=== PATIENT | female | born 1935 | race Asian ===

== ENCOUNTER 2017-04-15 15:41 | Inpatient (IN) | payer MEDICARE, OTHER ==
[~2017-04-15] VITALS: Ht 162.6 cm; Wt 68.0 kg
[2017-04-15 15:41] VITALS: BP 132/71
[~2017-04-15 15:41] MED LIST: ALENDRONATE SOD70 MG ORAL; AMBIEN5 MG PO; ARICEPT10 MG ORAL; ARICEPT10 MG PO; ASPIR-LOW81 MG PO; ASPIRIN300 MG PO; ASPIRIN325 MG PO; ATORVASTATIN CA20 MG ORAL; BISACODYL5 MG PO; COLACE100 MG PO; COREG12.5 MG PO; DOXYCYCLINE HY100 M2 PO; DULCOLAX10 MG PR; FUROSEMIDE20 M1 PO; GABAPENTIN600 MG PO; IMDUR30 MG PO; ISOSORBIDE DINI20 M2 PO; KCL 20 MEQ20 MEQ/100 PO; KEFLEX500 MG ORAL; MIRALAX17 G2 ORAL; MIRTAZAPINE15 MG ORAL; MOM30 ML PO; MULTIVITAMINS1 EAC8 ORAL; NAMENDA10 MG PO; NEPHROVITE1 TAB ORAL; NEPHROVITE1 TAB PO; NITROGLYCERIN0.4 MG SL; NOVOLIN N100 UNIT/1 SUBQ; NOVOLOG100 UNIT/3 SUBQ; OMEPRAZOLE20 M2 ORAL; PLAVIX75 MG PO; POTASSIUM 25 M25 ME1 PO; PRAVACHOL80 MG PO; PRILOSEC OTC20 MG ORAL; PROTONIX40 MG PO; REGLAN5 MG ORAL; RENA-VITE RX T1 EAC1 PO; ROBITUSSIN DM T10 ML PO; TRAMADOL HCL50 MG ORAL; TRAMADOL HCL50 MG PO; TYLENOL500 MG PO; ZESTRIL5 MG PO; [UNRECOGNIZED DRUG - OTHER] PO
--- NOTE | 2017-04-15 15:57 | Emergency Room Report ---
History of Present Illness General Chief Complaint: General Complaint Source: Patient Present Illness HPI 81-year-old female, on aspirin, dementia, coming from shelter, vaginal bleeding for 2 days. Patient is awake alert oriented to person, however not giving clear history. shelter told EMS that she has been having vaginal bleeding for 2 days. Wetting about 10 pads. They held her aspirin, unknown time frame. Currently patient is following commands, not complaining of any pain. Allergies: Coded Allergies: No Known Allergies (Unverified , 04/19/12) Patient History Past Medical History: see triage record Past Surgical History: none Pertinent Family History: none Reviewed Nursing Documentation: PMH: Agreed, PSxH: Agreed Nursing Documentation-PMH Hx Cardiac Problems: Yes - Anemia, heart failure, [place], Hx Hypertension: Yes Hx Pacemaker: No Hx Asthma: No Hx COPD: Yes Hx Diabetes: Yes Hx Cancer: No Hx Gastrointestinal Problems: No Hx Dialysis: No - chronic kidney disease Hx Neurological Problems: Yes Hx Cerebrovascular Accident: No Hx Dementia: Yes Hx Alzheimer's Disease: Yes Hx Parkinson's Disease: No Hx Meningitis: No Hx Seizures: No Hx Epilepsy: No Hx Multiple Sclerosis: No Hx Cerebral Palsy: No Hx Amyotrophic Lat Sclerosis: No Hx Guillian-Hopewell Syndrome: No Hx Paralysis: No Hx Peripheral Neuropathy: No Hx Spinal Cord Injury: No Hx Head Trauma: No Hx Traumatic Brain Injury: No Hx Memory Loss: Yes Hx Concentration Difficulty: No Hx Tremors: No Hx Vertigo: No Hx Dizziness: Yes Hx Syncope: No Hx Headaches: Yes Hx Dysphasia: Yes Hx Numbness: Yes Hx Weakness: Yes Hx Fatigue: Yes Hx Neurologic Surgery: No Hx Brain Shunt: No Review of Systems All Other Systems: limited - dementia Physical Exam Vital Signs Date Time Temp Pulse Resp B/P (MAP) Pulse Ox O2 Delivery O2 Flow Rate FiO2 04/15/17 15:32 98.1 67 18 132/71 95 Room Air Sp02 EP Interpretation: reviewed, normal General Appearance: other - tired appearig elderly female, not in acute distress Head: normocephalic, atraumatic Eyes: bilateral eye normal inspection, bilateral eye PERRL, bilateral eye EOMI ENT: normal ENT inspection, normal pharynx, normal voice, moist mucus membranes Neck: normal inspection, full range of motion, supple Respiratory: normal inspection, lungs clear, normal breath sounds, no respiratory distress, no retraction, no wheezing, speaking full sentences, chest symmetrical Cardiovascular #1: normal inspection, regular rate, rhythm, normal capillary refill Cardiovascular #2: 2+ radial (R), 2+ radial (L) Gastrointestinal: other - nontender abdomen all quadrants, no guarding no rigidity, normal bS Genitourinary: other - +minimal blood in vaginal vault Musculoskeletal: normal inspection, back normal, normal range of motion, non- tender Neurologic: other - aox1, ff commands, moves all 4 ext Psychiatric: other - dementia Skin: normal inspection, normal color, no rash, warm/dry, well hydrated, normal turgor Medical Decision Making Diagnostic Impression: Primary Impression: Vaginal bleeding ER Course 81-year-old female, vaginal bleeding for 3 days DDX: via physical exam, appears to be vaginal bleeding, not rectal bleeding ? Endometrial CA Patient is hemodynamically stable Plan: Obtain labs, including type and screen, ua, EKG, CXR LAN/WAN ENGINEER consult ER course: Patient has been monitored during ED stay, HD stable Disposition: Patient is to be admitted to med surg D/W hospitalist Dr Gomes who has accepted patient for admission Please note that this Emergency Department Report was dictated using [employer]ified juvenile probation officer technology software, occasionally this can lead to erroneous entry secondary to interpretation by the dictation equipment. EKG Diagnostic Results EP Interpretation: Yes Rate: normal Rhythm: NSR ST Segments: TWI III and avF ASA given to patient: No Rhythm Strip EP Interpretation: Yes Rate: 87 Rhythm: NSR, no PVCs, no ectopy Laboratory Tests Test 04/15/17 16:05 04/15/17 17:30 White Blood Count 7.4 K/UL (4.8-10.8) Red Blood Count 4.22 M/UL (4.20-5.40) Hemoglobin 13.3 G/DL (12.0-16.0) Hematocrit 39.7 % (37.0-47.0) Mean Corpuscular Volume 94 FL (80-99) Mean Corpuscular Hemoglobin 31.5 PG (27.0-31.0) H Mean Corpuscular Hemoglobin Concent 33.5 G/DL (32.0-36.0) Red Cell Distribution Width 12.2 % (11.6-14.8) Platelet Count 171 K/UL (150-450) Mean Platelet Volume 7.7 FL (6.5-10.1) Neutrophils (%) (Auto) 66.8 % (45.0-75.0) Lymphocytes (%) (Auto) 18.7 % (20.0-45.0) L Monocytes (%) (Auto) 8.9 % (1.0-10.0) Eosinophils (%) (Auto) 4.5 % (0.0-3.0) H Basophils (%) (Auto) 1.2 % (0.0-2.0) Prothrombin Time 9.5 SEC (9.30-11.50) Prothrombin Time INR 0.9 (0.9-1.1) PTT 30 SEC (23-33) Sodium Level 141 MMOL/L (136-145) Potassium Level 4.4 MMOL/L (3.5-5.1) Chloride Level 109 MMOL/L (98-107) H Carbon Dioxide Level 24 MMOL/L (21-32) Anion Gap 8 mmol/L (5-15) Blood Urea Nitrogen 28 mg/dL (7-18) H Creatinine 1.3 MG/DL (0.55-1.30) Estimate Glomerular Filtration Rate mL/min (>60) Glucose Level 136 MG/DL (74-106) H Calcium Level 9.0 MG/DL (8.5-10.1) Total Bilirubin 0.3 MG/DL (0.2-1.0) Aspartate Amino Transferase (AST) 21 U/L (15-37) Alanine Aminotransferase (ALT) 33 U/L (12-78) Alkaline Phosphatase 74 U/L (46-116) Troponin I 0.030 ng/mL (0.000-0.056) Total Protein 6.8 G/DL (6.4-8.2) Albumin 3.1 G/DL (3.4-5.0) L Globulin 3.7 g/dL Albumin/Globulin Ratio 0.8 (1.0-2.7) L Lipase 230 U/L (73-393) Urine Color Pending Urine Appearance Pending Urine pH Pending Urine Specific [place] Pending Urine Protein Pending Urine Glucose (UA) Pending Urine Ketones Pending Urine Occult Blood Pending Urine Nitrite Pending Urine Bilirubin Pending Urine Urobilinogen Pending Urine Leukocyte Esterase Pending Last Vital Signs Date Time Temp Pulse Resp B/P (MAP) Pulse Ox O2 Delivery O2 Flow Rate FiO2 11/29/17 15:32 98.1 67 18 132/71 95 Room Air Huma Khalil M.D. Apr 15, 2017 15:57
[2017-04-15 16:25] LABS: BASOPHILS % (AUTO) 1.2 % (0.0-2.0); EOSINOPHILS % (AUTO) 4.5 % (0.0-3.0); LYMPHOCYTES % (AUTO) 18.7 % (20.0-45.0); MEAN CORPUSCULAR HEMOGLOBIN 31.5 PG (27.0-31.0); MEAN CORPUSCULAR HGB CONC 33.5 G/DL (32.0-36.0); MEAN CORPUSCULAR VOLUME 94 FL (80-99); MEAN PLATELET VOLUME 7.7 FL (6.5-10.1); MONOCYTES % (AUTO) 8.9 % (1.0-10.0); NEUTROPHILS % (AUTO) 66.8 % (45.0-75.0); PLATELET COUNT 171 K/UL (150-450); RED BLOOD COUNT 4.22 M/UL (4.20-5.40); RED CELL DISTRIBUTION WIDTH 12.2 % (11.6-14.8); WHITE BLOOD COUNT 7.4 K/UL (4.8-10.8)
[2017-04-15 16:38] LABS: ANION GAP 8 mmol/L (5-15); CARBON DIOXIDE 24 MMOL/L (21-32); CHLORIDE 109 MMOL/L (98-107); CREATININE 1.3 MG/DL (0.55-1.30); POTASSIUM 4.4 MMOL/L (3.5-5.1); SODIUM 141 MMOL/L (136-145)
[2017-04-15 16:42] LABS: ALANINE AMINOTRANSFERASE 33 U/L (12-78); ALBUMIN/GLOBULIN RATIO 0.8 (1.0-2.7); ASPARTATE AMINO TRANSFERASE 21 U/L (15-37); LIPASE 230 U/L (73-393); TOTAL PROTEIN 6.8 G/DL (6.4-8.2)
[2017-04-15 16:43] LABS: INR 0.9 (0.9-1.1); PROTHROMBIN TIME 9.5 SEC (9.30-11.50)
[2017-04-15 17:00] VITALS: BP 129/48
[2017-04-15 17:59] LABS: APPEARANCE,URINE CLEAR; KETONES,URINE NEGATIVE (NEGATIVE); LEUKOCYTE ESTERASE ,URINE 2+ (NEGATIVE); NITRITE,URINE POSITIVE (NEGATIVE); PH,URINE 5 (4.5-8.0); PROTEIN,URINE 1+ (NEGATIVE); UROBILINOGEN,URINE 1 MG/DL (0.0-1.0)
[2017-04-15] MEDS ORDERED: LORazepam Inj 2mg/ml 1ml IV PRN (18:00)
[2017-04-15] MEDS ORDERED: Miralax 17gm pkt ORAL PRN (18:00)
[2017-04-15] MEDS ORDERED: Zolpidem 5mg tab ORAL PRN (18:00)
[2017-04-15] MEDS ORDERED: Morphine Sulfate 2mg/ml Inj IVP PRN (18:00)
[2017-04-15] MEDS ORDERED: Mylanta II UD 30ml ORAL PRN (18:00)
[2017-04-15 18:12] LABS: BACTERIA,URINE MODERATE /HPF; SQUAMOUS EPITHELIAL CELL,UR FEW /LPF (NONE/OCC)
[2017-04-15 18:30] VITALS: BP 142/71
[2017-04-15 18:32] VITALS: BP 142/71
[2017-04-15 18:36] VITALS: BP 126/88
[2017-04-15] MEDS: Carvedilol 12.5mg tab ORAL SCH (18:54)
[2017-04-15] MEDS ORDERED: Promethazine/Codeine 5ml UD ORAL PRN (19:15)
[2017-04-15] MEDS ORDERED: Albuterol/Ipratropium 3ml neb HHN PRN (19:15)
[2017-04-15] MEDS ORDERED: Pneumococcal Vaccine 25mcg/0.5ml IM ONE (19:30)
[2017-04-15 19:57] VITALS: BP 133/62
[2017-04-15] MEDS: NovoLOG Insulin Flexpen SUBQ SCH (21:21)
[2017-04-16] VITALS: BP 129/65
[2017-04-16 04:00] VITALS: BP 111/53
[2017-04-16] MEDS: Carvedilol 12.5mg tab ORAL SCH ×2 (06:26→18:00)
[2017-04-16] MEDS: NovoLOG Insulin Flexpen SUBQ SCH ×4 (06:27→21:16)
[2017-04-16 07:07] LABS: BASOPHILS % (AUTO) 1.1 % (0.0-2.0); EOSINOPHILS % (AUTO) 5.5 % (0.0-3.0); LYMPHOCYTES % (AUTO) 31.6 % (20.0-45.0); MEAN CORPUSCULAR HEMOGLOBIN 31.5 PG (27.0-31.0); MEAN CORPUSCULAR HGB CONC 32.9 G/DL (32.0-36.0); MEAN CORPUSCULAR VOLUME 96 FL (80-99); MEAN PLATELET VOLUME 7.1 FL (6.5-10.1); MONOCYTES % (AUTO) 8.8 % (1.0-10.0); PLATELET COUNT 161 K/UL (150-450); RED BLOOD COUNT 4.12 M/UL (4.20-5.40); RED CELL DISTRIBUTION WIDTH 12.7 % (11.6-14.8); WHITE BLOOD COUNT 5.7 K/UL (4.8-10.8)
[2017-04-16 08:34] VITALS: BP 100/52
[2017-04-16] MEDS: Donepezil 10mg tab ORAL SCH (08:40)
[2017-04-16] MEDS: Lisinopril 2.5mg tab ORAL SCH (08:40)
[2017-04-16 09:04] LABS: ALANINE AMINOTRANSFERASE 24 U/L (12-78); ALBUMIN/GLOBULIN RATIO 0.8 (1.0-2.7); ANION GAP 6 mmol/L (5-15); ASPARTATE AMINO TRANSFERASE 18 U/L (15-37); CARBON DIOXIDE 28 MMOL/L (21-32); CHLORIDE 112 MMOL/L (98-107); CHOLESTEROL 166 MG/DL (< 200); CHOLESTEROL/HDL RATIO 2.5 (3.3-4.4); CREATININE 1.2 MG/DL (0.55-1.30); POTASSIUM 4.4 MMOL/L (3.5-5.1); SODIUM 146 MMOL/L (136-145); TOTAL PROTEIN 6.7 G/DL (6.4-8.2)
[2017-04-16 12:38] VITALS: BP 105/82
[2017-04-16] MEDS ORDERED: NS 500ML ONE (13:42)
[2017-04-16] MEDS: cefTRIAXone 1 GM in D5W 55 ML IVPB SCH (14:51)
--- NOTE | 2017-04-16 15:29 | History & Physical ---
History and Physical History & Physicial Dictated for Int Med-Dr Gomes no. [id number]. KIA LEÓN Apr 16, 2017 15:29
--- NOTE | 2017-04-16 16:17 | History and Physical ---
History of Present Illness General Date patient seen: Apr 16, 2017 Reason for Hospitalization: General Complaint Present Illness HPI 81-year-old female with PMHx of DM, dementia, CVA, HTN, CAD on aspirin and Plavix , from [facility], brought in for evaluation of vaginal bleeding for 2 days. Patient is awake alert oriented to person, however not giving clear history. She has been having vaginal bleeding for 2 days. Wetting about 10 pads. Pt is awake and comfortable but a poor historian. Allergies: Coded Allergies: No Known Allergies (Unverified , 04/19/12) Medication History Scheduled Alendronate Sodium* (Fosamax*), 70 MG ORAL ONCE A WEEK, (Reported) Aspirin* (Aspirin*), 325 MG PO DAILY, (Reported) Atorvastatin Calcium* (Atorvastatin Calcium*), 10 MG ORAL BEDTIME, (Reported) Bisacodyl* (Dulcolax*), 10 MG PO DAILY, (Reported) Carvedilol (Coreg), 12.5 MG PO Q12H, (Reported) Cephalexin* (Keflex*), 500 MG ORAL EVERY 6 HOURS Clopidogrel Bisulfate* (Plavix*), 75 MG PO DAILY, (Reported) Docusate Sodium* (Colace*), 100 MG PO BID, (Reported) Donepezil Hcl* (Aricept*), 10 MG ORAL DAILY, (Reported) Doxycycline Hyclate (Doxycycline Hyclate), 100 MG PO BID Furosemide* (Lasix*), 20 MG PO QOD, (Reported) Gabapentin* (Gabapentin*), 600 MG PO BID, (Reported) Isosorbide Mononitrate* (Imdur*), 30 MG PO DAILY, (Reported) Lisinopril* (Zestril*), 5 MG PO DAILY, (Reported) Memantine Hcl* (Namenda*), 10 MG PO BID, (Reported) Metoclopramide Hcl* (Reglan*), 5 MG ORAL EVERY 6 HOURS, (Reported) Mirtazapine* (Remeron*), 15 MG ORAL BEDTIME, (Reported) Multivitamin With Minerals (Multivitamins With Minerals*), 1 TAB ORAL DAILY, ( Reported) Nitroglycerin (Nitroglycerin), 0.4 MG SL PRN, (Reported) Omeprazole Magnesium (Prilosec Otc), 20 MG ORAL DAILY, (Reported) Polyethylene Glycol 3350* (Miralax*), 17 GM ORAL DAILY, (Reported) Potassium Bicarbonate/Cit Ac (Potassium 25 Meq Tablet Eff), 10 MEQ PO BID, ( Reported) Potassium Chloride/D5w (Kcl 20 Meq In D5w Solution), 20 MEQ PO QOD, (Reported) Pravastatin Sod (Pravachol), 80 MG PO HS, (Reported) Vitamin B Cmplx/Vit C/Folic AC (Nephro-Reyes Tablet), 1 TAB ORAL DAILY, (Reported ) Zolpidem Tartrate* (Ambien*), 5 MG PO HS, (Reported) Scheduled PRN Acetaminophen* (Tylenol*), 500 MG PO Q8H PRN, (Reported) Magnesium Hydroxide (Milk of Magnesia), 30 ML PO DAILY PRN, (Reported) Tramadol Hcl* (Ultram*), 50 MG ORAL Q6H PRN for For Pain, (Reported) Miscellaneous Medications Guaifenesin/Dextromethorphan (Robitussin Dm To Go Liquid), 10 ML PO, (Reported) Insulin Aspart* (Novolog*), 0 SUBQ, (Reported) Nph, Human Insulin Isophane* (Novolin N*), 0 SUBQ, (Reported) Vit B Cmplx 3/Fa/Vit C/Biotin (Zoe-Reyes Rx Tablet), 1 EACH PO, (Reported) Patient History Healthcare decision maker N Resuscitation status Full Code Advanced Directive on File Review of Systems Constitutional: Reports: malaise, weakness Physical Exam General Appearance: WD/WN, mild distress Lines, tubes and drains: central line HEENT: normocephalic, atraumatic Neck: non-tender, normal alignment Respiratory/Chest: chest wall non-tender, lungs clear, normal breath sounds Cardiovascular/Chest: normal peripheral pulses, normal rate Abdomen: normal bowel sounds, non tender Genitourinary/Rectal: normal genital exam, normal rectal exam Extremities: normal range of motion, non-tender, non-pitting Last 24 Hour Vital Signs Date Time Temp Pulse Resp B/P (MAP) Pulse Ox O2 Delivery O2 Flow Rate FiO2 04/16/17 12:38 98.0 65 20 105/82 98 04/16/17 08:40 100/52 04/16/17 08:34 97.8 63 20 100/52 98 Room Air 11/30/17 07:00 59 16 Room Air 21 04/16/17 06:26 56 111/53 04/16/17 04:00 98.5 56 16 111/53 100 Room Air 04/16/17 00:00 98.1 71 18 129/65 100 Room Air 04/15/17 19:57 98.4 66 20 133/62 98 Room Air 04/15/17 18:54 69 142/71 04/15/17 18:30 98.4 69 20 142/71 95 04/15/17 18:08 98.1 68 17 131/53 99 Room Air 04/15/17 17:00 63 15 129/48 98 Room Air Intake and Output 04/16/17 04/17/17 19:00 07:00 Intake Total 535 ml Balance 535 ml Intake Oral 480 ml IV Total 55 ml # Voids 2 # Bowel Movements 1 Laboratory Tests Test 04/15/17 17:30 04/16/17 04:55 Urine Color Yellow Urine Appearance Clear Urine pH 5 (4.5-8.0) Urine Specific [place] 1.020 (1.005-1.035) Urine Protein 1+ (NEGATIVE) H Urine Glucose (UA) Negative (NEGATIVE) Urine Ketones Negative (NEGATIVE) Urine Occult Blood 2+ (NEGATIVE) H Urine Nitrite Positive (NEGATIVE) H Urine Bilirubin Negative (NEGATIVE) Urine Urobilinogen 1 MG/DL (0.0-1.0) H Urine Leukocyte Esterase 2+ (NEGATIVE) H Urine RBC 10-15 /HPF (0 - 2) H Urine WBC 5-10 /HPF (0 - 2) H Urine Squamous Epithelial Cells Few /LPF (NONE/OCC) Urine Bacteria Moderate /HPF (NONE) H White Blood Count 5.7 K/UL (4.8-10.8) Red Blood Count 4.12 M/UL (4.20-5.40) L Hemoglobin 13.0 G/DL (12.0-16.0) Hematocrit 39.5 % (37.0-47.0) Mean Corpuscular Volume 96 FL (80-99) Mean Corpuscular Hemoglobin 31.5 PG (27.0-31.0) H Mean Corpuscular Hemoglobin Concent 32.9 G/DL (32.0-36.0) Red Cell Distribution Width 12.7 % (11.6-14.8) Platelet Count 161 K/UL (150-450) Mean Platelet Volume 7.1 FL (6.5-10.1) Neutrophils (%) (Auto) 53.0 % (45.0-75.0) Lymphocytes (%) (Auto) 31.6 % (20.0-45.0) Monocytes (%) (Auto) 8.8 % (1.0-10.0) Eosinophils (%) (Auto) 5.5 % (0.0-3.0) H Basophils (%) (Auto) 1.1 % (0.0-2.0) Sodium Level 146 MMOL/L (136-145) H Potassium Level 4.4 MMOL/L (3.5-5.1) Chloride Level 112 MMOL/L (98-107) H Carbon Dioxide Level 28 MMOL/L (21-32) Anion Gap 6 mmol/L (5-15) Blood Urea Nitrogen 24 mg/dL (7-18) H Creatinine 1.2 MG/DL (0.55-1.30) Estimat Glomerular Filtration Rate mL/min (>60) Glucose Level 87 MG/DL (74-106) Calcium Level 9.0 MG/DL (8.5-10.1) Total Bilirubin 0.4 MG/DL (0.2-1.0) Aspartate Amino Transf (AST/SGOT) 18 U/L (15-37) Alanine Aminotransferase (ALT/SGPT) 24 U/L (12-78) Alkaline Phosphatase 56 U/L (46-116) Total Protein 6.7 G/DL (6.4-8.2) Albumin 3.0 G/DL (3.4-5.0) L Globulin 3.7 g/dL Albumin/Globulin Ratio 0.8 (1.0-2.7) L Triglycerides Level 108 MG/DL (30-150) Cholesterol Level 166 MG/DL (< 200) LDL Cholesterol 82 mg/dL (<100) HDL Cholesterol 66 MG/DL (40-60) H Cholesterol/HDL Ratio 2.5 (3.3-4.4) L Microbiology Date/Time Source Procedure Growth Status 04/15/17 17:30 Urine,Clean Catch Urine Culture - Preliminary Resulted Height (Feet): 5 Height (Inches): 4.00 Weight (Pounds): 150 Medications Current Medications Medications (Trade) Dose Ordered Sig/Dat Route PRN Reason Start Time Stop Time Status Last Admin Dose Admin Acetaminophen (Tylenol) 650 mg Q4H PRN ORAL T>100.5 F 04/15/17 18:00 05/15/17 17:59 Al Hydroxide/Mg Hydroxide (Mylanta II) 30 ml Q6H PRN ORAL dyspepsia 04/15/17 18:00 05/15/17 17:59 Albuterol/ Ipratropium (Albuterol/ Ipratropium) 3 ml Q4H PRN HHN Shortness of Breath 04/15/17 19:15 04/20/17 19:14 Atorvastatin Calcium (Lipitor) 10 mg BEDTIME ORAL 04/15/17 21:00 05/15/17 20:59 04/15/17 21:19 Carvedilol (Coreg) 12.5 mg Q12HR@0600,1800 ORAL 04/15/17 18:00 05/15/17 17:59 04/16/17 06:26 Ceftriaxone Sodium 1 gm/ Dextrose 55 ml @ 110 mls/hr Q24H IVPB 04/16/17 15:00 04/23/17 14:59 04/16/17 14:51 Dextrose (Dextrose 50%) STAT PRN IV Hypoglycemia 04/15/17 18:00 05/15/17 17:59 Donepezil HCl (Aricept) 10 mg DAILY ORAL 04/16/17 09:00 05/16/17 08:59 04/16/17 08:40 Gabapentin (Neurontin) 600 mg BID ORAL 04/15/17 18:00 05/15/17 17:59 04/16/17 08:40 Insulin Aspart (NovoLOG) BEFORE MEALS AND HS SUBQ 04/15/17 21:00 05/15/17 20:59 04/16/17 11:38 Lisinopril (Zestril) 5 mg DAILY ORAL 04/16/17 09:00 05/16/17 08:59 Lorazepam (Ativan 2mg/ml 1ml) 0.5 mg Q4H PRN IV For Anxiety 04/15/17 18:00 04/22/17 17:59 Morphine Sulfate (Morphine Sulfate) 1 mg Q4H PRN IVP PAIN 4-10 04/15/17 18:00 04/22/17 17:59 Ondansetron HCl (Zofran) 4 mg Q6H PRN IVP Nausea & Vomiting 04/15/17 18:00 05/15/17 17:59 Polyethylene Glycol (Miralax) 17 gm HSPRN PRN ORAL Constipation 04/15/17 18:00 05/15/17 17:59 Promethazine HCl/ Codeine (Phenergan with Codeine) 5 ml Q6H PRN ORAL For Cough 04/15/17 19:15 05/15/17 19:14 Zolpidem Tartrate (Ambien) 5 mg HSPRN PRN ORAL Insomnia 04/15/17 18:00 04/22/17 17:59 Assessment/Plan Problem List: (1) Vaginal bleeding ICD Codes: N93.9 - Abnormal uterine and vaginal bleeding, unspecified SNOMED: 796949156, 847855046 (2) COPD (chronic obstructive pulmonary disease) ICD Codes: J44.9 - COPD (chronic obstructive pulmonary disease) SNOMED: 26943583 (3) Alzheimer's dementia ICD Codes: G30.9 - Alzheimer's disease, unspecified SNOMED: 43250985 (4) Diabetes ICD Codes: E11.9 - Diabetes SNOMED: 91025072 (5) Dementia ICD Codes: F03.90 - Dementia SNOMED: 73810328 Assessment/Plan hold all anticoagulant, anti PLT agents check H/H vaginal [employer] evaluation symptomatic treatment ILANA PIERCE Apr 16, 2017 16:17
[2017-04-16 16:24] VITALS: BP 110/54
[2017-04-16 20:00] VITALS: BP 114/51
--- NOTE | 2017-04-16 21:45 | History and Physical Report ---
DATE OF ADMISSION: 04/15/2017 CHIEF COMPLAINT: The patient is an 81-year-old female, who presents with a chief complaint of vaginal bleeding. HISTORY OF PRESENT ILLNESS: The patient herself is unable to contribute much to the history and physical. The patient has a history of Alzheimer's dementia. The patient is a resident of [facility]. According to the staff at [facility], the patient had a three-day history of vaginal bleeding. This has been quite heavy. The patient presented to [place] emergency room. The patient is admitted for postmenopausal menorrhagia. PAST MEDICAL HISTORY: Significant for: 1. Type 2 diabetes. 2. Hypertension. 3. Coronary artery disease. 4. History of congestive heart failure. 5. Alzheimer's dementia. 6. Osteoporosis. PAST SURGICAL HISTORY: Denies. CURRENT MEDICATIONS: 1. Fosamax 70 mg one tablet p.o. weekly. 2. Aspirin 325 mg one tablet p.o. daily. 3. Atorvastatin 20 mg one tablet p.o. at bedtime. 4. Coreg 12.5 mg p.o. twice daily. 5. Plavix 75 mg one tablet p.o. daily. 6. Aricept 10 mg one tablet p.o. daily. 7. Lasix 20 mg one tablet p.o. every other day. 8. Neurontin 600 mg one tablet p.o. twice daily. 9. NovoLog sliding scale. 10. Imdur 30 mg p.o. daily. 11. Lisinopril 5 mg one tablet p.o. daily. 12. Remeron 15 mg one tablet p.o. at bedtime. 13. Multivitamin one tablet p.o. daily. 14. NPH insulin of an unknown dose twice daily. 15. Omeprazole 20 mg p.o. daily. 16. Potassium chloride 20 mEq p.o. daily. 17. Pravastatin 80 mg p.o. daily. 18. Tramadol 50 mg p.o. q.6 hours p.r.n. 19. Vitamin B complex daily. 20. Ambien 5 mg one tablet p.o. at bedtime. ALLERGIES: No known drug allergies. SOCIAL HISTORY: The patient denies tobacco or alcohol use. REVIEW OF SYSTEMS: Unable to assess secondary to the patient's mental status. PHYSICAL EXAMINATION: VITAL SIGNS: Temperature 98.5, respirations 15, pulse 56, and blood pressure 111/53. GENERAL: The patient is a well-developed and well-nourished female, in no apparent distress. HEENT: Eyes, pupils are equal and responsive to light and accommodation. Extraocular movements are intact. NECK: Supple without lymphadenopathy. CHEST: Lungs are clear to auscultation bilaterally without wheezes or rales. CARDIOVASCULAR: Regular rate. S1 and S2 are normal without murmurs, rubs, or gallops. ABDOMEN: Soft, nontender, and nondistended. Positive bowel sounds. No evidence of hepatosplenomegaly. Currently, no rebound or guarding noted. EXTREMITIES: Negative for clubbing, cyanosis, or edema. RECTAL/GENITAL: Refused. NEUROLOGIC: Cranial nerves II to XII are grossly intact without focal deficits. Motor strength is 5/5 bilaterally. Deep tendon reflexes are 2+ plantar. LABORATORY STUDIES: WBC 7.4, hemoglobin 13.3, hematocrit 39.7, and platelets 171,000. Sodium 141, potassium 4.4, chloride 109, CO2 24, BUN 28, creatinine 1.3, and glucose 136. ASSESSMENT: This is an 81-year-old female. 1. Postmenopausal menorrhagia. 2. Diabetes type 2. 3. Hypertension. 4. Coronary artery disease. 5. Congestive heart failure. 6. Alzheimer's dementia. 7. Osteoporosis. 8. Hypercholesterolemia. 9. Congestive heart failure. TREATMENT: 1. Postmenopausal menorrhagia. A Gynecology consultation has been obtained with Dr. Santiago Muse. We will follow recommendations of Gynecology. The patient may have uterine cancer. We will follow recommendations of AGRICULTURAL ADVISER. The patient may require uterine biopsy. 2. Diabetes type 2. Continue NovoLog sliding scale. 3. Hypertension. Continue Coreg and lisinopril as above. 4. Coronary artery disease/congestive heart failure. Plavix and aspirin have been held secondary to menorrhagia as above. 5. Alzheimer's dementia. Continue Aricept as above. 6. Osteoporosis. Continue Fosamax as above. 7. Hypercholesterolemia. Continue Pravachol as above. Eliud Jorgensen M.D. DR: SYLVAIN JOB#: [id number] CC:
--- NOTE | 2017-04-16 23:49 | Consultation ---
History of Present Illness General Chief Complaint: General Complaint Present Illness HPI 81-year-old female, who presents with a chief complaint of vaginal bleeding. the pt is my outpatient at [facility]. the pt is confused and was agitated earlier. she also has hx of depression and her zoloft was discontinued recently. the ot was unable to provide hx Allergies: Coded Allergies: No Known Allergies (Unverified , 04/19/12) Medication History Scheduled Alendronate Sodium* (Fosamax*), 70 MG ORAL ONCE A WEEK, (Reported) Aspirin* (Aspirin*), 325 MG PO DAILY, (Reported) Atorvastatin Calcium* (Atorvastatin Calcium*), 10 MG ORAL BEDTIME, (Reported) Bisacodyl* (Dulcolax*), 10 MG PO DAILY, (Reported) Carvedilol (Coreg), 12.5 MG PO Q12H, (Reported) Cephalexin* (Keflex*), 500 MG ORAL EVERY 6 HOURS Clopidogrel Bisulfate* (Plavix*), 75 MG PO DAILY, (Reported) Docusate Sodium* (Colace*), 100 MG PO BID, (Reported) Donepezil Hcl* (Aricept*), 10 MG ORAL DAILY, (Reported) Doxycycline Hyclate (Doxycycline Hyclate), 100 MG PO BID Furosemide* (Lasix*), 20 MG PO QOD, (Reported) Gabapentin* (Gabapentin*), 600 MG PO BID, (Reported) Isosorbide Mononitrate* (Imdur*), 30 MG PO DAILY, (Reported) Lisinopril* (Zestril*), 5 MG PO DAILY, (Reported) Memantine Hcl* (Namenda*), 10 MG PO BID, (Reported) Metoclopramide Hcl* (Reglan*), 5 MG ORAL EVERY 6 HOURS, (Reported) Mirtazapine* (Remeron*), 15 MG ORAL BEDTIME, (Reported) Multivitamin With Minerals (Multivitamins With Minerals*), 1 TAB ORAL DAILY, ( Reported) Nitroglycerin (Nitroglycerin), 0.4 MG SL PRN, (Reported) Omeprazole Magnesium (Prilosec Otc), 20 MG ORAL DAILY, (Reported) Polyethylene Glycol 3350* (Miralax*), 17 GM ORAL DAILY, (Reported) Potassium Bicarbonate/Cit Ac (Potassium 25 Meq Tablet Eff), 10 MEQ PO BID, ( Reported) Potassium Chloride/D5w (Kcl 20 Meq In D5w Solution), 20 MEQ PO QOD, (Reported) Pravastatin Sod (Pravachol), 80 MG PO HS, (Reported) Vitamin B Cmplx/Vit C/Folic AC (Nephro-Reyes Tablet), 1 TAB ORAL DAILY, (Reported ) Zolpidem Tartrate* (Ambien*), 5 MG PO HS, (Reported) Scheduled PRN Acetaminophen* (Tylenol*), 500 MG PO Q8H PRN, (Reported) Magnesium Hydroxide (Milk of Magnesia), 30 ML PO DAILY PRN, (Reported) Tramadol Hcl* (Ultram*), 50 MG ORAL Q6H PRN for For Pain, (Reported) Miscellaneous Medications Guaifenesin/Dextromethorphan (Robitussin Dm To Go Liquid), 10 ML PO, (Reported) Insulin Aspart* (Novolog*), 0 SUBQ, (Reported) Nph, Human Insulin Isophane* (Novolin N*), 0 SUBQ, (Reported) Vit B Cmplx 3/Fa/Vit C/Biotin (Zoe-Reyes Rx Tablet), 1 EACH PO, (Reported) Patient History Limited by: medical condition History Provided By: Patient, Medical Record, PMD Healthcare decision maker N Resuscitation status Full Code Advanced Directive on File Review of Systems Psychiatric: Reports: prior hx, anxiety, depressed feelings, emotional problems Physical Exam General Appearance: no apparent distress, alert, confused, agitated, overweight Neurologic: alert, disoriented, depressed affect Last 24 Hour Vital Signs Date Time Temp Pulse Resp B/P (MAP) Pulse Ox O2 Delivery O2 Flow Rate FiO2 04/16/17 20:00 97.5 61 20 114/51 97 Room Air 04/16/17 19:50 68 18 Room Air 21 04/16/17 18:00 58 110/54 04/16/17 16:24 97.3 58 18 110/54 95 04/16/17 12:38 98.0 65 20 105/82 98 04/16/17 08:40 100/52 04/16/17 08:34 97.8 63 20 100/52 98 Room Air 04/16/17 07:00 59 16 Room Air 21 11/30/17 06:26 56 111/53 04/16/17 04:00 98.5 56 16 111/53 100 Room Air 04/16/17 00:00 98.1 71 18 129/65 100 Room Air Intake and Output 04/16/17 04/17/17 19:00 07:00 Intake Total 535 ml Balance 535 ml Intake Oral 480 ml IV Total 55 ml # Voids 4 # Bowel Movements 1 Laboratory Tests Test 04/16/17 04:55 White Blood Count 5.7 K/UL (4.8-10.8) Red Blood Count 4.12 M/UL (4.20-5.40) L Hemoglobin 13.0 G/DL (12.0-16.0) Hematocrit 39.5 % (37.0-47.0) Mean Corpuscular Volume 96 FL (80-99) Mean Corpuscular Hemoglobin 31.5 PG (27.0-31.0) H Mean Corpuscular Hemoglobin Concent 32.9 G/DL (32.0-36.0) Red Cell Distribution Width 12.7 % (11.6-14.8) Platelet Count 161 K/UL (150-450) Mean Platelet Volume 7.1 FL (6.5-10.1) Neutrophils (%) (Auto) 53.0 % (45.0-75.0) Lymphocytes (%) (Auto) 31.6 % (20.0-45.0) Monocytes (%) (Auto) 8.8 % (1.0-10.0) Eosinophils (%) (Auto) 5.5 % (0.0-3.0) H Basophils (%) (Auto) 1.1 % (0.0-2.0) Sodium Level 146 MMOL/L (136-145) H Potassium Level 4.4 MMOL/L (3.5-5.1) Chloride Level 112 MMOL/L (98-107) H Carbon Dioxide Level 28 MMOL/L (21-32) Anion Gap 6 mmol/L (5-15) Blood Urea Nitrogen 24 mg/dL (7-18) H Creatinine 1.2 MG/DL (0.55-1.30) Estimat Glomerular Filtration Rate mL/min (>60) Glucose Level 87 MG/DL (74-106) Calcium Level 9.0 MG/DL (8.5-10.1) Total Bilirubin 0.4 MG/DL (0.2-1.0) Aspartate Amino Transf (AST/SGOT) 18 U/L (15-37) Alanine Aminotransferase (ALT/SGPT) 24 U/L (12-78) Alkaline Phosphatase 56 U/L (46-116) Total Protein 6.7 G/DL (6.4-8.2) Albumin 3.0 G/DL (3.4-5.0) L Globulin 3.7 g/dL Albumin/Globulin Ratio 0.8 (1.0-2.7) L Triglycerides Level 108 MG/DL (30-150) Cholesterol Level 166 MG/DL (< 200) LDL Cholesterol 82 mg/dL (<100) HDL Cholesterol 66 MG/DL (40-60) H Cholesterol/HDL Ratio 2.5 (3.3-4.4) L Height (Feet): 5 Height (Inches): 4.00 Weight (Pounds): 150 Medications Current Medications Medications (Trade) Dose Ordered Sig/Dat Route PRN Reason Start Time Stop Time Status Last Admin Dose Admin Acetaminophen (Tylenol) 650 mg Q4H PRN ORAL T>100.5 F 04/15/17 18:00 05/15/17 17:59 Al Hydroxide/Mg Hydroxide (Mylanta II) 30 ml Q6H PRN ORAL dyspepsia 04/15/17 18:00 05/15/17 17:59 Albuterol/ Ipratropium (Albuterol/ Ipratropium) 3 ml Q4H PRN HHN Shortness of Breath 04/15/17 19:15 04/20/17 19:14 Atorvastatin Calcium (Lipitor) 10 mg BEDTIME ORAL 04/15/17 21:00 05/15/17 20:59 04/16/17 21:09 Carvedilol (Coreg) 12.5 mg Q12HR@0600,1800 ORAL 04/15/17 18:00 05/15/17 17:59 04/16/17 06:26 Ceftriaxone Sodium 1 gm/ Dextrose 55 ml @ 110 mls/hr Q24H IVPB 04/16/17 15:00 04/23/17 14:59 04/16/17 14:51 Dextrose (Dextrose 50%) STAT PRN IV Hypoglycemia 04/15/17 18:00 05/15/17 17:59 Donepezil HCl (Aricept) 10 mg DAILY ORAL 04/16/17 09:00 05/16/17 08:59 04/16/17 08:40 Gabapentin (Neurontin) 600 mg BID ORAL 04/15/17 18:00 05/15/17 17:59 04/16/17 18:12 Insulin Aspart (NovoLOG) BEFORE MEALS AND HS SUBQ 04/15/17 21:00 05/15/17 20:59 04/16/17 21:16 Lisinopril (Zestril) 5 mg DAILY ORAL 04/16/17 09:00 05/16/17 08:59 Lorazepam (Ativan 2mg/ml 1ml) 0.5 mg Q4H PRN IV For Anxiety 04/15/17 18:00 04/22/17 17:59 Morphine Sulfate (Morphine Sulfate) 1 mg Q4H PRN IVP PAIN 4-10 04/15/17 18:00 04/22/17 17:59 Ondansetron HCl (Zofran) 4 mg Q6H PRN IVP Nausea & Vomiting 04/15/17 18:00 05/15/17 17:59 Polyethylene Glycol (Miralax) 17 gm HSPRN PRN ORAL Constipation 04/15/17 18:00 05/15/17 17:59 Promethazine HCl/ Codeine (Phenergan with Codeine) 5 ml Q6H PRN ORAL For Cough 04/15/17 19:15 05/15/17 19:14 Zolpidem Tartrate (Ambien) 5 mg HSPRN PRN ORAL Insomnia 04/15/17 18:00 04/22/17 17:59 Assessment/Plan Status: stable Assessment/Plan dementia mdd -memantine and aricept Preston Suazo M.D. Apr 16, 2017 23:49
[2017-04-17] VITALS: BP 109/62
[2017-04-17 04:00] VITALS: BP 111/55
[2017-04-17] MEDS: NovoLOG Insulin Flexpen SUBQ SCH ×4 (06:30→21:14)
[2017-04-17] MEDS: Carvedilol 12.5mg tab ORAL SCH ×2 (06:31→17:40)
[2017-04-17 07:02] LABS: BASOPHILS % (AUTO) 1.4 % (0.0-2.0); EOSINOPHILS % (AUTO) 6.6 % (0.0-3.0); LYMPHOCYTES % (AUTO) 32.3 % (20.0-45.0); MEAN CORPUSCULAR HEMOGLOBIN 31.2 PG (27.0-31.0); MEAN CORPUSCULAR HGB CONC 32.6 G/DL (32.0-36.0); MEAN CORPUSCULAR VOLUME 96 FL (80-99); MEAN PLATELET VOLUME 6.1 FL (6.5-10.1); MONOCYTES % (AUTO) 8.4 % (1.0-10.0); NEUTROPHILS % (AUTO) 51.3 % (45.0-75.0); PLATELET COUNT 155 K/UL (150-450); RED BLOOD COUNT 4.01 M/UL (4.20-5.40); RED CELL DISTRIBUTION WIDTH 12.4 % (11.6-14.8); WHITE BLOOD COUNT 5.5 K/UL (4.8-10.8)
[2017-04-17 07:17] LABS: ANION GAP 6 mmol/L (5-15); CALCIUM 8.8 MG/DL (8.5-10.1); CARBON DIOXIDE 27 MMOL/L (21-32); CHLORIDE 113 MMOL/L (98-107); CREATININE 1.2 MG/DL (0.55-1.30); POTASSIUM 4.4 MMOL/L (3.5-5.1); SODIUM 146 MMOL/L (136-145)
--- NOTE | 2017-04-17 07:49 | Pulmonology Progress Note ---
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 Empiric abx, fup with urine cx Monitor renal parameters, lytes, avoid nephrotoxic BS management with SS of insulin BP management with ORESTES Continue Aricept O2 HHN prn Pain management psych follows bowel regimen case discussed and evaluated by supervising physician Subjective Allergies: Coded Allergies: No Known Allergies (Unverified , 04/19/12) Subjective no further vaginal bleeding HH remains stable urine cx + GNB Objective Last 24 Hour Vital Signs Date Time Temp Pulse Resp B/P (MAP) Pulse Ox O2 Delivery O2 Flow Rate FiO2 04/17/17 06:31 60 111/55 04/17/17 04:00 98.4 60 18 111/55 98 Room Air 04/17/17 00:00 97.3 54 18 109/62 97 Room Air 04/16/17 20:00 97.5 61 20 114/51 97 Room Air 04/16/17 19:50 68 18 Room Air 21 04/16/17 18:00 58 110/54 04/16/17 16:24 97.3 58 18 110/54 95 04/16/17 12:38 98.0 65 20 105/82 98 04/16/17 08:40 100/52 04/16/17 08:34 97.8 63 20 100/52 98 Room Air HEENT: normocephalic, atraumatic, anicteric, mucous membranes moist Respiratory/Chest: lungs clear, no respiratory distress, no accessory muscle use Cardiovascular: normal rate, regular rhythm, no JVD Abdomen: normal bowel sounds, soft, non tender Extremities: no edema, pedal pulses normal Neurologic/Psychiatric: abnormal gait, alert, responsive Musculoskeletal: atrophy - BLE Microbiology Date/Time Source Procedure Growth Status 04/15/17 17:30 Urine,Clean Catch Urine Culture - Preliminary Resulted Laboratory Tests 04/17/17 06:35: White Blood Count 5.5, Red Blood Count 4.01L, Hemoglobin 12.5, Hematocrit 38.5, Mean Corpuscular Volume 96, Mean Corpuscular Hemoglobin 31.2H, Mean Corpuscular Hemoglobin Concent 32.6, Red Cell Distribution Width 12.4, Platelet Count 155, Mean Platelet Volume 6.1L, Neutrophils (%) (Auto) 51.3, Lymphocytes (%) (Auto) 32.3, Monocytes (%) (Auto) 8.4, Eosinophils (%) (Auto) 6.6H, Basophils (%) (Auto ) 1.4, Sodium Level 146H, Potassium Level 4.4, Chloride Level 113H, Carbon Dioxide Level 27, Anion Gap 6, Blood Urea Nitrogen 22H, Creatinine 1.2, Estimat Glomerular Filtration Rate , Glucose Level 95, Calcium Level 8.8 Current Medications Medications (Trade) Dose Ordered Sig/Dat Route PRN Reason Start Time Stop Time Status Last Admin Dose Admin Acetaminophen (Tylenol) 650 mg Q4H PRN ORAL T>100.5 F 04/15/17 18:00 05/15/17 17:59 Al Hydroxide/Mg Hydroxide (Mylanta II) 30 ml Q6H PRN ORAL dyspepsia 04/15/17 18:00 05/15/17 17:59 Albuterol/ Ipratropium (Albuterol/ Ipratropium) 3 ml Q4H PRN HHN Shortness of Breath 04/15/17 19:15 04/20/17 19:14 Atorvastatin Calcium (Lipitor) 10 mg BEDTIME ORAL 04/15/17 21:00 05/15/17 20:59 04/16/17 21:09 Carvedilol (Coreg) 12.5 mg Q12HR@0600,1800 ORAL 04/15/17 18:00 05/15/17 17:59 04/17/17 06:31 Ceftriaxone Sodium 1 gm/ Dextrose 55 ml @ 110 mls/hr Q24H IVPB 04/16/17 15:00 04/23/17 14:59 04/16/17 14:51 Dextrose (Dextrose 50%) STAT PRN IV Hypoglycemia 04/15/17 18:00 05/15/17 17:59 Donepezil HCl (Aricept) 10 mg DAILY ORAL 04/16/17 09:00 05/16/17 08:59 04/16/17 08:40 Gabapentin (Neurontin) 600 mg BID ORAL 04/15/17 18:00 05/15/17 17:59 04/16/17 18:12 Insulin Aspart (NovoLOG) BEFORE MEALS AND HS SUBQ 04/15/17 21:00 05/15/17 20:59 04/16/17 21:16 Lisinopril (Zestril) 5 mg DAILY ORAL 04/16/17 09:00 05/16/17 08:59 Lorazepam (Ativan 2mg/ml 1ml) 0.5 mg Q4H PRN IV For Anxiety 04/15/17 18:00 04/22/17 17:59 Morphine Sulfate (Morphine Sulfate) 1 mg Q4H PRN IVP PAIN 4-10 04/15/17 18:00 04/22/17 17:59 Ondansetron HCl (Zofran) 4 mg Q6H PRN IVP Nausea & Vomiting 04/15/17 18:00 05/15/17 17:59 Polyethylene Glycol (Miralax) 17 gm HSPRN PRN ORAL Constipation 04/15/17 18:00 05/15/17 17:59 Promethazine HCl/ Codeine (Phenergan with Codeine) 5 ml Q6H PRN ORAL For Cough 04/15/17 19:15 05/15/17 19:14 Zolpidem Tartrate (Ambien) 5 mg HSPRN PRN ORAL Insomnia 04/15/17 18:00 04/22/17 17:59 Chaz (Leeadilene)Laura NP Apr 17, 2017 07:49
[2017-04-17 08:00] VITALS: BP 111/57
[2017-04-17] MEDS: Donepezil 10mg tab ORAL SCH (08:23)
[2017-04-17] MEDS: Lisinopril 2.5mg tab ORAL SCH (08:32)
--- NOTE | 2017-04-17 14:22 | Consultation ---
Consult Note Consult Note GYNECOLOGY CONSULT NOTE CC: postmenopausal bleeding HPI: Patient is an 81yo patient with dementia, admitted from the ED for postmenopausal bleeding. Per RN, minimal bleeding today, only spotting. No bright red blood on sheet under patient today. Unable to obtain history from patient, so entirety of HPI obtained from chart review. Patient is a resident at [facility]. She was brought in for a 2-3 day history of heavy vaginal bleeding soaking >1 pad per day. Per ED physician, bleeding appeared to be vaginal (no rectal). Patient is awake , responds minimally to questions (non verbal groans), and denies any pain. She has a complicated medical history including Alzheimer's dementia. PMH: T2DM, HTN, CAD, CHF, Alzheimer's, Osteoporosis, Dyslipidemia PSH: None noted MEDICATIONS: 1. Fosamax 70 mg one tablet p.o. weekly. 2. Aspirin 325 mg one tablet p.o. daily. 3. Atorvastatin 20 mg one tablet p.o. at bedtime. 4. Coreg 12.5 mg p.o. twice daily. 5. Plavix 75 mg one tablet p.o. daily. 6. Aricept 10 mg one tablet p.o. daily. 7. Lasix 20 mg one tablet p.o. every other day. 8. Neurontin 600 mg one tablet p.o. twice daily. 9. NovoLog sliding scale. 10. Imdur 30 mg p.o. daily. 11. Lisinopril 5 mg one tablet p.o. daily. 12. Remeron 15 mg one tablet p.o. at bedtime. 13. Multivitamin one tablet p.o. daily. 14. NPH insulin of an unknown dose twice daily. 15. Omeprazole 20 mg p.o. daily. 16. Potassium chloride 20 mEq p.o. daily. 17. Pravastatin 80 mg p.o. daily. 18. Tramadol 50 mg p.o. q.6 hours p.r.n. 19. Vitamin B complex daily. 20. Ambien 5 mg one tablet p.o. at bedtime. ALLERGIES: NKDA SOCIAL Hx: unable to obtain, but no documented T/E/D use VITALS: Tmax: 98.4, P 54-64, BP 92-111/42-62, RR 18, O2 93-98% RA PHYSICAL EXAM: Gen: resting comfortably, NAD HEENT: OP clear, MMM, lacking dentition CV: RRR Pulm: no increased work of breathing Abd: soft, NTND, some scarring/pallor on lower abdomen, likely contact related from prolonged diaper use Pelvic: Small mucoid bloody discharge noted on the sheet at perineum, no juan antonio blood visualized, severe vulvar atrophy appreciated. Deferred internal exam initially due to patient inability to consent, however I contacted the patient' s daughter who wished for me to attempt endometrial biopsy. Pelvic exam attempted, but patient screamed "ouch! no! no! don't poke me", so the exam was stopped. Moderate mucoid discharge noted on glove, lightly stained with blood. Attempted to visualize perineum once more after exam terminated, and patient again stated "I told you, don't poke me." Exam terminated. Ext: non-tender LABS: 04/15 @ 1605: CBC - 7.4>13.3/39.7<171, UA - 2+ LE, +nitrite, 10-15 RBC, 5-10 WBC , Moderate bacteria, Few squames 04/16 @ 0455: CBC - 5.7>13.0/39.5<161 04/17 @ 0635: CBC - 5.5>12.5/38.5<155 IMAGING: PELVIC US: Findings: Uterus measures 7.9 cm in length by 3.6 cm AP. The endometrium is fluid-filled, measuring 11 mm thick. This was not evident previously Myometrial echotexture is heterogeneous, and there is suggestion of some calcification near the fundus. The right ovary measures 4.9 cm in length, contains a 3.7 cm cyst. The left ovary cannot be visualized. No free cul-de-sac fluid demonstrated On the prior exam, a 2.7 cm cyst was evident. Impression: Limited exam, given a central absence of endovaginal images. Fluid in the endometrium. Nonspecific, could be blood given stated clinical history of postmenopausal bleeding. Consider tissue sampling as clinically indicated Heterogeneous myometrium with calcifications, likely reflecting old fibroids 3.7 cm right ovarian cyst, slightly increased in size from 2.7 cm on the 2013 exam Nonvisualization of the left ovary Assessment/Plan ASSESSMENT/PLAN: 81yo with postmenopausal bleeding, ultrasound notable for fluid-filled endometrium and right ovarian cyst (overall stable from last exam in 2013), clinically stable and in NAD with no active bleeding appreciated on exam # Postmenopausal bleeding - minimal bleeding on exam today, and per RN minimal bleeding while in house; no signs of heavy bleeding or anemia at this time - possible causes of bleeding include hematometria secondary to cervical stenosis, endometrial polyps, or endometrial cancer - endometrial biopsy would be needed to rule in/out any of the above, however the patient would not tolerate exam thus biopsy not feasible at this time. - given patient's clinical status, would require sedation (at minimum) to obtain endometrial sampling, and given the patient's complicated medical history would be hesitant to take patient to OR given high risk of morbidity and mortality - discussed options with patient's daughter including expectant management vs sedation in the operating room. Discussed R/B/A of both management options and decided to attempt EMB today in patient's room. Patient's daughter will not consent to operative management, given the risks of surgery and sedation. Discussed that if malignancy is detected, treatment would be surgical and patient is a poor surgical candidate - given that the patient's bleeding is stable currently, and my inability to perform biopsy today, recommend expectant management with close monitoring of bleeding including pad counts at her nursing facility ( # of pads soaked and percentage soaked) - would recommend close monitoring of patient's bleeding status and return to ED if heavy bleeding recurs or if there are any signs of anemia - recommend restarting Plavix and ASA # UTI - management per primary MD # Medical comorbidities (T2DM, HTN, CAD, CHF, Alzheimer's, Dyslipidemia) - management per primary MD # Dispo - 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 Apr 17, 2017 14:22
--- NOTE | 2017-04-17 14:30 | Diagnostic Imaging Report ---
Indication: Postmenopausal vaginal bleeding Technique: Transabdominal images only. Patient was able to tolerate only a single transvaginal image of the cervix Comparison: 08/08/2013 Findings: Uterus measures 7.9 cm in length by 3.6 cm AP. The endometrium is fluid-filled, measuring 11 mm thick. This was not evident previously Myometrial echotexture is heterogeneous, and there is suggestion of some calcification near the fundus. The right ovary measures 4.9 cm in length, contains a 3.7 cm cyst. The left ovary cannot be visualized. No free cul-de-sac fluid demonstrated On the prior exam, a 2.7 cm cyst was evident. Impression: Limited exam, given a central absence of endovaginal images. Fluid in the endometrium. Nonspecific, could be blood given stated clinical history of postmenopausal bleeding. Consider tissue sampling as clinically indicated Heterogeneous myometrium with calcifications, likely reflecting old fibroids 3.7 cm right ovarian cyst, slightly increased in size from 2.7 cm on the 08/08/2013 exam Nonvisualization of the left ovary
--- NOTE | 2017-04-17 14:33 | Diagnostic Imaging Report ---
APPROVED REPORT CPT Code: 72118 Present Symptoms Lower Extremity Pain: Bilateral BILATERAL: Imaging reveals a patent deep venous system bilaterally. There is no evidence of thrombus within the femoral, popliteal or tibial segments. The greater saphenous veins are also within normal limits. Doppler indicates normal spontaneous flow within these segments.
--- NOTE | 2017-04-17 14:59 | General Progress Note ---
Assessment/Plan Status: stable Assessment/Plan encephalopathy dementia -cont current meds Subjective Date patient seen: Apr 17, 2017 Neurologic/Psychiatric: Reports: anxiety, depressed, emotional problems Allergies: Coded Allergies: No Known Allergies (Unverified , 04/19/12) Subjective the pt is same no agitation today Objective Last 24 Hour Vital Signs Date Time Temp Pulse Resp B/P (MAP) Pulse Ox O2 Delivery O2 Flow Rate FiO2 04/17/17 12:19 64 18 Room Air 21 04/17/17 08:32 92/42 04/17/17 08:00 97.7 56 18 111/57 93 04/17/17 08:00 Room Air 04/17/17 06:31 60 111/55 04/17/17 04:00 98.4 60 18 111/55 98 Room Air 04/17/17 00:00 97.3 54 18 109/62 97 Room Air 04/16/17 20:00 97.5 61 20 114/51 97 Room Air 04/16/17 19:50 68 18 Room Air 21 04/16/17 18:00 58 110/54 04/16/17 16:24 97.3 58 18 110/54 95 Laboratory Tests 04/17/17 06:35: White Blood Count 5.5, Red Blood Count 4.01L, Hemoglobin 12.5, Hematocrit 38.5, Mean Corpuscular Volume 96, Mean Corpuscular Hemoglobin 31.2H, Mean Corpuscular Hemoglobin Concent 32.6, Red Cell Distribution Width 12.4, Platelet Count 155, Mean Platelet Volume 6.1L, Neutrophils (%) (Auto) 51.3, Lymphocytes (%) (Auto) 32.3, Monocytes (%) (Auto) 8.4, Eosinophils (%) (Auto) 6.6H, Basophils (%) (Auto ) 1.4, Sodium Level 146H, Potassium Level 4.4, Chloride Level 113H, Carbon Dioxide Level 27, Anion Gap 6, Blood Urea Nitrogen 22H, Creatinine 1.2, Estimat Glomerular Filtration Rate , Glucose Level 95, Calcium Level 8.8 Height (Feet): 5 Height (Inches): 4.00 Weight (Pounds): 150 General Appearance: no apparent distress, alert, confused, overweight Neurologic: alert, disoriented, depressed affect Preston Suazo M.D. Apr 17, 2017 14:59
[2017-04-17] MEDS: cefTRIAXone 1 GM in D5W 55 ML IVPB SCH (15:08)
[2017-04-17 17:39] VITALS: BP 115/59
--- NOTE | 2017-04-17 18:10 | Internal Med Progress Note ---
Subjective Date of Service: Apr 17, 2017 Physician Name JoslynKia Attending Physician Van Gomes MD Current Medications Medications (Trade) Dose Ordered Sig/Dat Route PRN Reason Start Time Stop Time Status Last Admin Dose Admin Acetaminophen (Tylenol) 650 mg Q4H PRN ORAL T>100.5 F 04/15/17 18:00 05/15/17 17:59 Al Hydroxide/Mg Hydroxide (Mylanta II) 30 ml Q6H PRN ORAL dyspepsia 04/15/17 18:00 05/15/17 17:59 Albuterol/ Ipratropium (Albuterol/ Ipratropium) 3 ml Q4H PRN HHN Shortness of Breath 04/15/17 19:15 04/20/17 19:14 Atorvastatin Calcium (Lipitor) 10 mg BEDTIME ORAL 04/15/17 21:00 05/15/17 20:59 04/16/17 21:09 Carvedilol (Coreg) 12.5 mg Q12HR@0600,1800 ORAL 04/15/17 18:00 05/15/17 17:59 04/17/17 06:31 Ceftriaxone Sodium 1 gm/ Dextrose 55 ml @ 110 mls/hr Q24H IVPB 04/16/17 15:00 04/23/17 14:59 04/17/17 15:08 Dextrose (Dextrose 50%) STAT PRN IV Hypoglycemia 04/15/17 18:00 05/15/17 17:59 Donepezil HCl (Aricept) 10 mg DAILY ORAL 04/16/17 09:00 05/16/17 08:59 04/17/17 08:23 Gabapentin (Neurontin) 600 mg BID ORAL 04/15/17 18:00 05/15/17 17:59 04/17/17 17:41 Insulin Aspart (NovoLOG) BEFORE MEALS AND HS SUBQ 04/15/17 21:00 05/15/17 20:59 04/16/17 21:16 Lisinopril (Zestril) 5 mg DAILY ORAL 04/16/17 09:00 05/16/17 08:59 Lorazepam (Ativan 2mg/ml 1ml) 0.5 mg Q4H PRN IV For Anxiety 04/15/17 18:00 04/22/17 17:59 Morphine Sulfate (Morphine Sulfate) 1 mg Q4H PRN IVP PAIN 4-10 04/15/17 18:00 04/22/17 17:59 Ondansetron HCl (Zofran) 4 mg Q6H PRN IVP Nausea & Vomiting 04/15/17 18:00 05/15/17 17:59 Polyethylene Glycol (Miralax) 17 gm HSPRN PRN ORAL Constipation 04/15/17 18:00 05/15/17 17:59 Promethazine HCl/ Codeine (Phenergan with Codeine) 5 ml Q6H PRN ORAL For Cough 04/15/17 19:15 05/15/17 19:14 Zolpidem Tartrate (Ambien) 5 mg HSPRN PRN ORAL Insomnia 04/15/17 18:00 04/22/17 17:59 Allergies: Coded Allergies: No Known Allergies (Unverified , 04/19/12) ROS Limited/Unobtainable: No Constitutional: Reports: no symptoms HEENT: Reports: no symptoms Cardiovascular: Reports: no symptoms Respiratory: Reports: no symptoms Gastrointestinal/Abdominal: Reports: no symptoms Genitourinary: Reports: no symptoms Neurologic/Psychiatric: Reports: no symptoms Subjective 81 YO F admitted with post menopausal menorrhagia and UTI. Cover for Int Nayan- Dr Gomes. Objective Last Vital Signs Date Time Temp Pulse Resp B/P (MAP) Pulse Ox O2 Delivery O2 Flow Rate FiO2 04/17/17 17:40 58 115/59 04/17/17 12:19 18 Room Air 21 04/17/17 08:00 97.7 93 General Appearance: WD/WN, no apparent distress, alert EENT: PERRL/EOMI, normal ENT inspection Neck: non-tender, normal alignment, supple Cardiovascular: normal peripheral pulses, normal rate, regular rhythm, no gallop/murmur, no JVD Respiratory/Chest: chest wall non-tender, lungs clear, normal breath sounds, no respiratory distress, no accessory muscle use Abdomen: normal bowel sounds, non tender, soft, no organomegaly, no mass Extremities: normal range of motion, non-tender Neurologic: tablet coater II-XII grossly normal, no motor/sensory deficits Skin: normal pigmentation, warm/dry Laboratory Tests Test 04/17/17 06:35 White Blood Count 5.5 K/UL (4.8-10.8) Red Blood Count 4.01 M/UL (4.20-5.40) L Hemoglobin 12.5 G/DL (12.0-16.0) Hematocrit 38.5 % (37.0-47.0) Mean Corpuscular Volume 96 FL (80-99) Mean Corpuscular Hemoglobin 31.2 PG (27.0-31.0) H Mean Corpuscular Hemoglobin Concent 32.6 G/DL (32.0-36.0) Red Cell Distribution Width 12.4 % (11.6-14.8) Platelet Count 155 K/UL (150-450) Mean Platelet Volume 6.1 FL (6.5-10.1) L Neutrophils (%) (Auto) 51.3 % (45.0-75.0) Lymphocytes (%) (Auto) 32.3 % (20.0-45.0) Monocytes (%) (Auto) 8.4 % (1.0-10.0) Eosinophils (%) (Auto) 6.6 % (0.0-3.0) H Basophils (%) (Auto) 1.4 % (0.0-2.0) Sodium Level 146 MMOL/L (136-145) H Potassium Level 4.4 MMOL/L (3.5-5.1) Chloride Level 113 MMOL/L (98-107) H Carbon Dioxide Level 27 MMOL/L (21-32) Anion Gap 6 mmol/L (5-15) Blood Urea Nitrogen 22 mg/dL (7-18) H Creatinine 1.2 MG/DL (0.55-1.30) Estimat Glomerular Filtration Rate mL/min (>60) Glucose Level 95 MG/DL (74-106) Calcium Level 8.8 MG/DL (8.5-10.1) Microbiology Date/Time Source Procedure Growth Status 04/15/17 17:20 Nasal Nares MRSA Culture - Final NO METHICILLIN RESISTANT STAPH AUREUS... Complete 04/15/17 17:30 Urine,Clean Catch Urine Culture - Preliminary Gram Negative Bacillus 1 Resulted 04/15/17 17:20 Rectum VRE Culture - Final NO VANCOMYCIN RESISTANT ENTEROCOCCUS ... Complete Intake and Output 04/17/17 04/18/17 19:00 07:00 # Voids 3 # Bowel Movements 1 Assessment/Plan Problem List: (1) HTN (hypertension) Assessment & Plan: Continue coreg (2) CAD (coronary artery disease) (3) Osteoporosis (4) Diabetes mellitus type II, controlled Assessment & Plan: Continue novolog sliding scale. (5) Post-menopausal bleeding Assessment & Plan: See NAPHTHALENE OPERATOR HELPER note. Unable to perform endometrial biopsy. Not a surgical candidate at this time. (6) UTI (urinary tract infection) Assessment & Plan: Gram neg mark. Await ID and sensitivity. Cont ceftriaxone for now (7) CHF (congestive heart failure) (8) Alzheimer's dementia (9) Hypercholesteremia (10) Hypertension Status: not improved KIA LEÓN Apr 17, 2017 18:10
[2017-04-17 19:30] VITALS: BP 97/56
[2017-04-17 23:34] VITALS: BP 101/53
[2017-04-18 04:00] VITALS: BP 131/67
[2017-04-18] MEDS: NovoLOG Insulin Flexpen SUBQ SCH ×4 (06:30→21:00)
[2017-04-18] MEDS: Carvedilol 12.5mg tab ORAL SCH ×2 (06:37→17:25)
[2017-04-18 07:11] LABS: BASOPHILS % (AUTO) 1.3 % (0.0-2.0); EOSINOPHILS % (AUTO) 6.9 % (0.0-3.0); LYMPHOCYTES % (AUTO) 30.9 % (20.0-45.0); MEAN CORPUSCULAR HEMOGLOBIN 30.9 PG (27.0-31.0); MEAN CORPUSCULAR HGB CONC 32.2 G/DL (32.0-36.0); MEAN CORPUSCULAR VOLUME 96 FL (80-99); MEAN PLATELET VOLUME 6.7 FL (6.5-10.1); MONOCYTES % (AUTO) 9.6 % (1.0-10.0); NEUTROPHILS % (AUTO) 51.2 % (45.0-75.0); PLATELET COUNT 152 K/UL (150-450); RED BLOOD COUNT 4.11 M/UL (4.20-5.40); RED CELL DISTRIBUTION WIDTH 12.7 % (11.6-14.8); WHITE BLOOD COUNT 5.8 K/UL (4.8-10.8)
[2017-04-18 07:19] LABS: ANION GAP 4 mmol/L (5-15); CALCIUM 8.8 MG/DL (8.5-10.1); CARBON DIOXIDE 27 MMOL/L (21-32); CHLORIDE 111 MMOL/L (98-107); CREATININE 1.1 MG/DL (0.55-1.30); POTASSIUM 4.5 MMOL/L (3.5-5.1); SODIUM 142 MMOL/L (136-145)
[2017-04-18 08:00] VITALS: BP 111/58
[2017-04-18] MEDS: Lisinopril 2.5mg tab ORAL SCH (09:43)
[2017-04-18] MEDS: Donepezil 10mg tab ORAL SCH (09:44)
[2017-04-18 12:00] VITALS: BP 114/56
--- NOTE | 2017-04-18 12:48 | Internal Med Progress Note ---
Subjective Date of Service: Apr 18, 2017 Physician Name Kia León Attending Physician Van Gomes MD Current Medications Medications (Trade) Dose Ordered Sig/Dat Route PRN Reason Start Time Stop Time Status Last Admin Dose Admin Acetaminophen (Tylenol) 650 mg Q4H PRN ORAL T>100.5 F 04/15/17 18:00 05/15/17 17:59 Al Hydroxide/Mg Hydroxide (Mylanta II) 30 ml Q6H PRN ORAL dyspepsia 04/15/17 18:00 05/15/17 17:59 Albuterol/ Ipratropium (Albuterol/ Ipratropium) 3 ml Q4H PRN HHN Shortness of Breath 04/15/17 19:15 04/20/17 19:14 Atorvastatin Calcium (Lipitor) 10 mg BEDTIME ORAL 04/15/17 21:00 05/15/17 20:59 04/17/17 21:13 Carvedilol (Coreg) 12.5 mg Q12HR@0600,1800 ORAL 04/15/17 18:00 05/15/17 17:59 04/18/17 06:37 Ceftriaxone Sodium 1 gm/ Dextrose 55 ml @ 110 mls/hr Q24H IVPB 04/16/17 15:00 04/23/17 14:59 04/17/17 15:08 Dextrose (Dextrose 50%) STAT PRN IV Hypoglycemia 04/15/17 18:00 05/15/17 17:59 Donepezil HCl (Aricept) 10 mg DAILY ORAL 04/16/17 09:00 05/16/17 08:59 04/18/17 09:44 Gabapentin (Neurontin) 600 mg BID ORAL 04/15/17 18:00 05/15/17 17:59 04/18/17 09:44 Insulin Aspart (NovoLOG) BEFORE MEALS AND HS SUBQ 04/15/17 21:00 05/15/17 20:59 04/17/17 21:14 Lisinopril (Zestril) 5 mg DAILY ORAL 04/16/17 09:00 05/16/17 08:59 Lorazepam (Ativan 2mg/ml 1ml) 0.5 mg Q4H PRN IV For Anxiety 04/15/17 18:00 04/22/17 17:59 Morphine Sulfate (Morphine Sulfate) 1 mg Q4H PRN IVP PAIN 4-10 04/15/17 18:00 04/22/17 17:59 Ondansetron HCl (Zofran) 4 mg Q6H PRN IVP Nausea & Vomiting 04/15/17 18:00 05/15/17 17:59 Polyethylene Glycol (Miralax) 17 gm HSPRN PRN ORAL Constipation 04/15/17 18:00 05/15/17 17:59 Promethazine HCl/ Codeine (Phenergan with Codeine) 5 ml Q6H PRN ORAL For Cough 04/15/17 19:15 05/15/17 19:14 Zolpidem Tartrate (Ambien) 5 mg HSPRN PRN ORAL Insomnia 04/15/17 18:00 04/22/17 17:59 Allergies: Coded Allergies: No Known Allergies (Unverified , 04/19/12) ROS Limited/Unobtainable: No Constitutional: Reports: no symptoms HEENT: Reports: no symptoms Cardiovascular: Reports: no symptoms Respiratory: Reports: no symptoms Gastrointestinal/Abdominal: Reports: no symptoms Genitourinary: Reports: no symptoms Neurologic/Psychiatric: Reports: no symptoms Subjective 81 YO F admitted with post menopausal menorrhagia and UTI. Cover for Int Nayan- Dr Gomes. Objective Last Vital Signs Date Time Temp Pulse Resp B/P (MAP) Pulse Ox O2 Delivery O2 Flow Rate FiO2 04/18/17 12:00 96.6 59 20 114/56 93 Room Air 04/18/17 07:43 21 Laboratory Tests Test 04/18/17 05:30 White Blood Count 5.8 K/UL (4.8-10.8) Red Blood Count 4.11 M/UL (4.20-5.40) L Hemoglobin 12.7 G/DL (12.0-16.0) Hematocrit 39.4 % (37.0-47.0) Mean Corpuscular Volume 96 FL (80-99) Mean Corpuscular Hemoglobin 30.9 PG (27.0-31.0) Mean Corpuscular Hemoglobin Concent 32.2 G/DL (32.0-36.0) Red Cell Distribution Width 12.7 % (11.6-14.8) Platelet Count 152 K/UL (150-450) Mean Platelet Volume 6.7 FL (6.5-10.1) Neutrophils (%) (Auto) 51.2 % (45.0-75.0) Lymphocytes (%) (Auto) 30.9 % (20.0-45.0) Monocytes (%) (Auto) 9.6 % (1.0-10.0) Eosinophils (%) (Auto) 6.9 % (0.0-3.0) H Basophils (%) (Auto) 1.3 % (0.0-2.0) Sodium Level 142 MMOL/L (136-145) Potassium Level 4.5 MMOL/L (3.5-5.1) Chloride Level 111 MMOL/L (98-107) H Carbon Dioxide Level 27 MMOL/L (21-32) Anion Gap 4 mmol/L (5-15) L Blood Urea Nitrogen 21 mg/dL (7-18) H Creatinine 1.1 MG/DL (0.55-1.30) Estimat Glomerular Filtration Rate mL/min (>60) Glucose Level 88 MG/DL (74-106) Calcium Level 8.8 MG/DL (8.5-10.1) Microbiology Date/Time Source Procedure Growth Status 04/15/17 17:20 Nasal Nares MRSA Culture - Final NO METHICILLIN RESISTANT STAPH AUREUS... Complete 04/15/17 17:30 Urine,Clean Catch Urine Culture - Final Escherichia Coli - Esbl Complete 04/15/17 17:20 Rectum VRE Culture - Final NO VANCOMYCIN RESISTANT ENTEROCOCCUS ... Complete Objective General Appearance: WD/WN, no apparent distress, alert EENT: PERRL/EOMI, normal ENT inspection Neck: non-tender, normal alignment, supple Cardiovascular: normal peripheral pulses, normal rate, regular rhythm, no gallop/murmur, no JVD Respiratory/Chest: chest wall non-tender, lungs clear, normal breath sounds, no respiratory distress, no accessory muscle use Abdomen: normal bowel sounds, non tender, soft, no organomegaly, no mass Extremities: normal range of motion, non-tender Neurologic: military personnel specialist II-XII grossly normal, no motor/sensory deficits Skin: normal pigmentation, warm/dry Assessment/Plan Problem List: (1) HTN (hypertension) Assessment & Plan: Continue coreg (2) CAD (coronary artery disease) (3) Osteoporosis (4) Diabetes mellitus type II, controlled Assessment & Plan: Continue novolog sliding scale. (5) Post-menopausal bleeding Assessment & Plan: See DIRECTOR RECORDS MANAGEMENT note. Unable to perform endometrial biopsy. Not a surgical candidate at this time. (6) UTI (urinary tract infection) Assessment & Plan: ESBL E. Coli. Await ID consult. D/C ceftriaxone (7) CHF (congestive heart failure) (8) Alzheimer's dementia (9) Hypercholesteremia (10) Hypertension KIA LEÓN Apr 18, 2017 12:48
--- NOTE | 2017-04-18 14:33 | Pulmonology Progress Note ---
Assessment/Plan Assessment/Plan ASSESSMENT postmenopausal bleeding UTI with E coli ESBL dementia HTN CAD with hx of ID ( was on ASA) COPD DM CKD depression PLAN OF CARE MS floor HH remain stable TV/pelvic US noted RISK CONTROL SPECIALIST eval appreciated per MANAGER MAINTENANCE patient was uncooperative with pelvic exam, and likely will act in the same way during endometrial biopsy, will need sedation if proceed with it MANAGER MAINTENANCE recommended expectant management with close monitoring of bleeding including pad counts at her nursing facility and return to ED in case of acute severe bleeding MANAGER MAINTENANCE OK to resume ASA/Plavix ASA which initially was on hold, resumed urine cx+ E coli ESBL, abx ID consult for management of ESBL infection Monitor renal parameters, lytes, avoid nephrotoxic BS management with SS of insulin BP management with ORESTES Continue Aricept O2 HHN prn Pain management psych follows bowel regimen case discussed and evaluated by supervising physician Subjective Allergies: Coded Allergies: No Known Allergies (Unverified , 04/19/12) Subjective no further vaginal bleeding HH remains stable urine cx + GNB Objective Last 24 Hour Vital Signs Date Time Temp Pulse Resp B/P (MAP) Pulse Ox O2 Delivery O2 Flow Rate FiO2 04/18/17 12:00 96.6 59 20 114/56 93 Room Air 04/18/17 09:43 111/58 04/18/17 08:00 96.8 58 19 111/58 97 Room Air 04/18/17 08:00 Room Air 04/18/17 07:43 68 20 Room Air 21 04/18/17 06:37 60 131/67 04/18/17 04:00 96.4 60 20 131/67 92 Room Air 04/17/17 23:34 96.8 58 17 101/53 93 Room Air 04/17/17 21:03 65 18 Room Air 21 04/17/17 19:30 97.9 61 20 97/56 94 Room Air 04/17/17 17:40 58 115/59 04/17/17 17:39 58 115/59 Microbiology Date/Time Source Procedure Growth Status 04/15/17 17:20 Nasal Nares MRSA Culture - Final NO METHICILLIN RESISTANT STAPH AUREUS... Complete 04/15/17 17:30 Urine,Clean Catch Urine Culture - Final Escherichia Coli - Esbl Complete 04/15/17 17:20 Rectum VRE Culture - Final NO VANCOMYCIN RESISTANT ENTEROCOCCUS ... Complete Laboratory Tests 04/18/17 05:30: White Blood Count 5.8, Red Blood Count 4.11L, Hemoglobin 12.7, Hematocrit 39.4, Mean Corpuscular Volume 96, Mean Corpuscular Hemoglobin 30.9, Mean Corpuscular Hemoglobin Concent 32.2, Red Cell Distribution Width 12.7, Platelet Count 152, Mean Platelet Volume 6.7, Neutrophils (%) (Auto) 51.2, Lymphocytes (%) (Auto) 30.9, Monocytes (%) (Auto) 9.6, Eosinophils (%) (Auto) 6.9H, Basophils (%) (Auto ) 1.3, Sodium Level 142, Potassium Level 4.5, Chloride Level 111H, Carbon Dioxide Level 27, Anion Gap 4L, Blood Urea Nitrogen 21H, Creatinine 1.1, Estimat Glomerular Filtration Rate , Glucose Level 88, Calcium Level 8.8 Current Medications Medications (Trade) Dose Ordered Sig/Dat Route PRN Reason Start Time Stop Time Status Last Admin Dose Admin Acetaminophen (Tylenol) 650 mg Q4H PRN ORAL T>100.5 F 04/15/17 18:00 05/15/17 17:59 Al Hydroxide/Mg Hydroxide (Mylanta II) 30 ml Q6H PRN ORAL dyspepsia 04/15/17 18:00 05/15/17 17:59 Albuterol/ Ipratropium (Albuterol/ Ipratropium) 3 ml Q4H PRN HHN Shortness of Breath 04/15/17 19:15 04/20/17 19:14 Atorvastatin Calcium (Lipitor) 10 mg BEDTIME ORAL 04/15/17 21:00 05/15/17 20:59 04/17/17 21:13 Carvedilol (Coreg) 12.5 mg Q12HR@0600,1800 ORAL 04/15/17 18:00 05/15/17 17:59 04/18/17 06:37 Ceftriaxone Sodium 1 gm/ Dextrose 55 ml @ 110 mls/hr Q24H IVPB 04/16/17 15:00 04/23/17 14:59 04/17/17 15:08 Dextrose (Dextrose 50%) STAT PRN IV Hypoglycemia 04/15/17 18:00 05/15/17 17:59 Donepezil HCl (Aricept) 10 mg DAILY ORAL 04/16/17 09:00 05/16/17 08:59 04/18/17 09:44 Gabapentin (Neurontin) 600 mg BID ORAL 04/15/17 18:00 05/15/17 17:59 04/18/17 09:44 Insulin Aspart (NovoLOG) BEFORE MEALS AND HS SUBQ 04/15/17 21:00 05/15/17 20:59 04/17/17 21:14 Lisinopril (Zestril) 5 mg DAILY ORAL 04/16/17 09:00 05/16/17 08:59 Lorazepam (Ativan 2mg/ml 1ml) 0.5 mg Q4H PRN IV For Anxiety 04/15/17 18:00 04/22/17 17:59 Morphine Sulfate (Morphine Sulfate) 1 mg Q4H PRN IVP PAIN 4-10 04/15/17 18:00 04/22/17 17:59 Ondansetron HCl (Zofran) 4 mg Q6H PRN IVP Nausea & Vomiting 04/15/17 18:00 05/15/17 17:59 Polyethylene Glycol (Miralax) 17 gm HSPRN PRN ORAL Constipation 04/15/17 18:00 05/15/17 17:59 Promethazine HCl/ Codeine (Phenergan with Codeine) 5 ml Q6H PRN ORAL For Cough 04/15/17 19:15 05/15/17 19:14 Zolpidem Tartrate (Ambien) 5 mg HSPRN PRN ORAL Insomnia 04/15/17 18:00 04/22/17 17:59 Chaz CraneLaura adames NP Apr 18, 2017 14:33
[2017-04-18 16:00] VITALS: BP 106/60
[2017-04-18] MEDS: cefTRIAXone 1 GM in D5W 55 ML IVPB SCH (16:08)
--- NOTE | 2017-04-18 16:09 | Consultation ---
Consult Note Consult Note [facility] # [id number] SHAE RODRIGUEZ M.D. Apr 18, 2017 16:09
--- NOTE | 2017-04-18 16:23 | Cardiology Report ---
APPROVED REPORT EKG Measurement Heart [id number] Normal sinus rhythm Nonspecific T wave abnormality Abnormal ECG
[2017-04-18] MEDS: Ertapenem 1 GM in NS 55 ML IVPB SCH (17:25)
[2017-04-18 20:04] VITALS: BP 120/61
--- NOTE | 2017-04-18 22:30 | Consultation ---
DATE OF CONSULTATION: 04/18/2017 INFECTIOUS DISEASE CONSULTATION CONSULTING PHYSICIAN: Dusty Engel M.D. REQUESTING PHYSICIAN: Eliud Jorgensen M.D. REASON FOR CONSULTATION: Evaluation of the patient for urinary tract infection, sepsis, antibiotic management. HISTORY OF PRESENT ILLNESS: The patient is an 81-year-old female with multiple medical problems with history of recent admission for abdominal wall cellulitis. The patient now has been admitted to this medical center for letharginess and the patient was found to have UTI due to ESBL organism. Infectious disease consultation has been requested for further evaluation, the patient's antibiotic management. The patient is a poor historian. Much of the information is gathered through review of chart and speaking to staff. PAST MEDICAL HISTORY: 1. Hypertension. 2. Dementia. 3. CHF. 4. Osteoarthritis. 5. Depression. 6. CAD. 7. Anemia. 8. CKD. 9. Diabetes. 10. COPD. MEDICATIONS: Currently is on IV Rocephin. ALLERGIES: No known drug allergies. SOCIAL HISTORY: Negative for alcohol or drug use. FAMILY HISTORY: Unobtainable. The patient is lethargic. PHYSICAL EXAMINATION: VITAL SIGNS: Temperature 96.8, blood pressure 114/56, pulse , and respiratory rate . HEENT: No pale conjunctivae. No icterus. NECK: No lymphadenopathy. CHEST: Clear. HEART: S1, S2. ABDOMEN: Soft, nontender. EXTREMITIES: No cyanosis at this time. NEUROLOGIC: Lethargic. LABORATORY DATA: White blood cells 5.8, hemoglobin 12, and platelets 152,000. UA shows 5-10 white blood cells. BUN 21, creatinine 1. ALT, AST, and alkaline phosphatase unremarkable. Urine culture is growing ESBL E. coli. Venous Doppler, no DVT. Abdominopelvic transvaginal ultrasound shows nonspecific fluid in the endometrium possibly due to postmenopausal bleed. ASSESSMENT: 1. Extended-spectrum beta-lactamase Escherichia coli. 2. Possible sepsis. 3. Letharginess, possibly secondary to above. 4. Vaginal bleed. 5. Anemia. PLAN: 1. We will change antibiotic to Invanz 1 g daily. 2. Monitor CBC. 3. Monitor BMP. 4. Monitor vital signs. 5. Based on the patient's clinical course and labs, we will do further recommendation. Thank you, Dr. Jorgensen, for allowing me to participate in the care of this patient. I will follow the patient with you during this hospitalization. Dusty Engel M.D. DR: Suresh JOB#: [id number] CC:
[2017-04-18 23:35] VITALS: BP 106/56
[2017-04-19] VITALS (7 sets, daily range): BP systolic 102–132; BP diastolic 57–68
[2017-04-19] MEDS: Carvedilol 12.5mg tab ORAL SCH ×2 (06:00→17:14)
[2017-04-19] MEDS: NovoLOG Insulin Flexpen SUBQ SCH ×4 (06:30→20:48)
[2017-04-19 07:47] LABS: BASOPHILS % (AUTO) 1.4 % (0.0-2.0); EOSINOPHILS % (AUTO) 6.8 % (0.0-3.0); LYMPHOCYTES % (AUTO) 26.8 % (20.0-45.0); MEAN CORPUSCULAR HEMOGLOBIN 31.9 PG (27.0-31.0); MEAN CORPUSCULAR HGB CONC 33.3 G/DL (32.0-36.0); MEAN CORPUSCULAR VOLUME 96 FL (80-99); MEAN PLATELET VOLUME 6.3 FL (6.5-10.1); MONOCYTES % (AUTO) 9.1 % (1.0-10.0); PLATELET COUNT 161 K/UL (150-450); RED BLOOD COUNT 3.99 M/UL (4.20-5.40); RED CELL DISTRIBUTION WIDTH 12.3 % (11.6-14.8); WHITE BLOOD COUNT 5.8 K/UL (4.8-10.8)
[2017-04-19 08:09] LABS: ANION GAP 6 mmol/L (5-15); CALCIUM 8.8 MG/DL (8.5-10.1); CARBON DIOXIDE 27 MMOL/L (21-32); CHLORIDE 110 MMOL/L (98-107); CREATININE 1.2 MG/DL (0.55-1.30); POTASSIUM 4.6 MMOL/L (3.5-5.1); SODIUM 143 MMOL/L (136-145)
[2017-04-19] MEDS: Aspirin EC 81mg tab ORAL SCH (08:40)
[2017-04-19] MEDS: Donepezil 10mg tab ORAL SCH (08:41)
[2017-04-19] MEDS: Lisinopril 2.5mg tab ORAL SCH (09:00)
--- NOTE | 2017-04-19 13:36 | Pulmonology Progress Note ---
Assessment/Plan Assessment/Plan ASSESSMENT postmenopausal bleeding UTI with E coli ESBL dementia HTN CAD with hx of [place] ( was on ASA) COPD DM CKD depression PLAN OF CARE MS floor HH remain stable TV/pelvic US noted CHIEF ENGINEERING DIVISION eval appreciated per BORDER GUARD patient was uncooperative with pelvic exam, and likely will act in the same way during endometrial biopsy, will need sedation if proceed with it BORDER GUARD recommended expectant management with close monitoring of bleeding including pad counts at her nursing facility and return to ED in case of acute severe bleeding BORDER GUARD OK to resume ASA/Plavix ASA which initially was on hold, resumed urine cx+ E coli ESBL, abx ID consult for management of ESBL infection Monitor renal parameters, lytes, avoid nephrotoxic BS management with SS of insulin BP management with ORESTES Continue Aricept O2 HHN prn Pain management psych follows bowel regimen dc plan as per pMD case discussed and evaluated by supervising physician Subjective Allergies: Coded Allergies: No Known Allergies (Unverified , 04/19/12) Subjective no further vaginal bleeding HH remains stable urine cx + E coli ESBL Objective Last 24 Hour Vital Signs Date Time Temp Pulse Resp B/P (MAP) Pulse Ox O2 Delivery O2 Flow Rate FiO2 04/19/17 09:00 102/60 04/19/17 08:55 97.7 63 14 102/60 96 Room Air 04/19/17 07:45 66 16 Room Air 04/19/17 06:24 54 115/59 04/19/17 06:00 54 115/59 04/19/17 04:00 97.0 85 20 132/62 96 Room Air 04/18/17 23:35 97.5 58 18 106/56 96 Room Air 04/18/17 20:43 64 18 Room Air 21 04/18/17 20:04 97.5 62 18 120/61 96 Room Air 04/18/17 20:00 Room Air 04/18/17 17:25 92 106/60 04/18/17 16:00 97.5 92 18 106/60 94 Room Air Laboratory Tests 04/19/17 05:10: White Blood Count 5.8, Red Blood Count 3.99L, Hemoglobin 12.7, Hematocrit 38.3, Mean Corpuscular Volume 96, Mean Corpuscular Hemoglobin 31.9H, Mean Corpuscular Hemoglobin Concent 33.3, Red Cell Distribution Width 12.3, Platelet Count 161, Mean Platelet Volume 6.3L, Neutrophils (%) (Auto) 56.0, Lymphocytes (%) (Auto) 26.8, Monocytes (%) (Auto) 9.1, Eosinophils (%) (Auto) 6.8H, Basophils (%) (Auto ) 1.4, Sodium Level 143, Potassium Level 4.6, Chloride Level 110H, Carbon Dioxide Level 27, Anion Gap 6, Blood Urea Nitrogen 18, Creatinine 1.2, Estimat Glomerular Filtration Rate , Glucose Level 84, Calcium Level 8.8 Current Medications Medications (Trade) Dose Ordered Sig/Dat Route PRN Reason Start Time Stop Time Status Last Admin Dose Admin Acetaminophen (Tylenol) 650 mg Q4H PRN ORAL T>100.5 F 04/15/17 18:00 05/15/17 17:59 Al Hydroxide/Mg Hydroxide (Mylanta II) 30 ml Q6H PRN ORAL dyspepsia 04/15/17 18:00 05/15/17 17:59 Albuterol/ Ipratropium (Albuterol/ Ipratropium) 3 ml Q4H PRN HHN Shortness of Breath 04/15/17 19:15 04/20/17 19:14 Aspirin (Ecotrin) 81 mg DAILY ORAL 04/19/17 09:00 05/19/17 08:59 04/19/17 08:40 Atorvastatin Calcium (Lipitor) 10 mg BEDTIME ORAL 04/15/17 21:00 05/15/17 20:59 04/18/17 21:02 Carvedilol (Coreg) 12.5 mg Q12HR@0600,1800 ORAL 04/15/17 18:00 05/15/17 17:59 04/18/17 06:37 Dextrose (Dextrose 50%) STAT PRN IV Hypoglycemia 04/15/17 18:00 05/15/17 17:59 Donepezil HCl (Aricept) 10 mg DAILY ORAL 04/16/17 09:00 05/16/17 08:59 04/19/17 08:41 Ertapenem 1 gm/ Sodium Chloride 55 ml @ 110 mls/hr Q24H IVPB 04/18/17 18:00 04/23/17 17:59 04/18/17 17:25 Gabapentin (Neurontin) 600 mg BID ORAL 04/15/17 18:00 05/15/17 17:59 04/19/17 08:41 Insulin Aspart (NovoLOG) BEFORE MEALS AND HS SUBQ 04/15/17 21:00 05/15/17 20:59 04/17/17 21:14 Lisinopril (Zestril) 5 mg DAILY ORAL 04/16/17 09:00 05/16/17 08:59 Lorazepam (Ativan 2mg/ml 1ml) 0.5 mg Q4H PRN IV For Anxiety 04/15/17 18:00 04/22/17 17:59 Morphine Sulfate (Morphine Sulfate) 1 mg Q4H PRN IVP PAIN 4-10 04/15/17 18:00 04/22/17 17:59 Ondansetron HCl (Zofran) 4 mg Q6H PRN IVP Nausea & Vomiting 04/15/17 18:00 05/15/17 17:59 Polyethylene Glycol (Miralax) 17 gm HSPRN PRN ORAL Constipation 04/15/17 18:00 05/15/17 17:59 Promethazine HCl/ Codeine (Phenergan with Codeine) 5 ml Q6H PRN ORAL For Cough 04/15/17 19:15 05/15/17 19:14 Zolpidem Tartrate (Ambien) 5 mg HSPRN PRN ORAL Insomnia 04/15/17 18:00 04/22/17 17:59 Chaz CraneLaura adames NP Apr 19, 2017 13:36
--- NOTE | 2017-04-19 14:09 | Internal Med Progress Note ---
Subjective Date of Service: Apr 19, 2017 Physician Name Eliud Jorgensen Attending Physician Van Gomes MD Current Medications Medications (Trade) Dose Ordered Sig/Dat Route PRN Reason Start Time Stop Time Status Last Admin Dose Admin Acetaminophen (Tylenol) 650 mg Q4H PRN ORAL T>100.5 F 04/15/17 18:00 05/15/17 17:59 Al Hydroxide/Mg Hydroxide (Mylanta II) 30 ml Q6H PRN ORAL dyspepsia 04/15/17 18:00 05/15/17 17:59 Albuterol/ Ipratropium (Albuterol/ Ipratropium) 3 ml Q4H PRN HHN Shortness of Breath 04/15/17 19:15 04/20/17 19:14 Aspirin (Ecotrin) 81 mg DAILY ORAL 04/19/17 09:00 05/19/17 08:59 04/19/17 08:40 Atorvastatin Calcium (Lipitor) 10 mg BEDTIME ORAL 04/15/17 21:00 05/15/17 20:59 04/18/17 21:02 Carvedilol (Coreg) 12.5 mg Q12HR@0600,1800 ORAL 04/15/17 18:00 05/15/17 17:59 04/18/17 06:37 Dextrose (Dextrose 50%) STAT PRN IV Hypoglycemia 04/15/17 18:00 05/15/17 17:59 Donepezil HCl (Aricept) 10 mg DAILY ORAL 04/16/17 09:00 05/16/17 08:59 04/19/17 08:41 Ertapenem 1 gm/ Sodium Chloride 55 ml @ 110 mls/hr Q24H IVPB 04/18/17 18:00 04/23/17 17:59 04/18/17 17:25 Gabapentin (Neurontin) 600 mg BID ORAL 04/15/17 18:00 05/15/17 17:59 04/19/17 08:41 Insulin Aspart (NovoLOG) BEFORE MEALS AND HS SUBQ 04/15/17 21:00 05/15/17 20:59 04/17/17 21:14 Lisinopril (Zestril) 5 mg DAILY ORAL 04/16/17 09:00 05/16/17 08:59 Lorazepam (Ativan 2mg/ml 1ml) 0.5 mg Q4H PRN IV For Anxiety 04/15/17 18:00 04/22/17 17:59 Morphine Sulfate (Morphine Sulfate) 1 mg Q4H PRN IVP PAIN 4-10 04/15/17 18:00 04/22/17 17:59 Ondansetron HCl (Zofran) 4 mg Q6H PRN IVP Nausea & Vomiting 04/15/17 18:00 05/15/17 17:59 Polyethylene Glycol (Miralax) 17 gm HSPRN PRN ORAL Constipation 04/15/17 18:00 05/15/17 17:59 Promethazine HCl/ Codeine (Phenergan with Codeine) 5 ml Q6H PRN ORAL For Cough 04/15/17 19:15 05/15/17 19:14 Zolpidem Tartrate (Ambien) 5 mg HSPRN PRN ORAL Insomnia 04/15/17 18:00 04/22/17 17:59 Allergies: Coded Allergies: No Known Allergies (Unverified , 04/19/12) ROS Limited/Unobtainable: No Constitutional: Reports: no symptoms HEENT: Reports: no symptoms Cardiovascular: Reports: no symptoms Respiratory: Reports: no symptoms Gastrointestinal/Abdominal: Reports: no symptoms Genitourinary: Reports: no symptoms Neurologic/Psychiatric: Reports: no symptoms Subjective 81 YO F admitted with post menopausal menorrhagia and UTI. Cover for Int Med- Dr Gomes. Objective Last Vital Signs Date Time Temp Pulse Resp B/P (MAP) Pulse Ox O2 Delivery O2 Flow Rate FiO2 04/19/17 12:00 97.2 55 15 117/68 98 Room Air 04/19/17 07:45 21 Laboratory Tests Test 04/19/17 05:10 White Blood Count 5.8 K/UL (4.8-10.8) Red Blood Count 3.99 M/UL (4.20-5.40) L Hemoglobin 12.7 G/DL (12.0-16.0) Hematocrit 38.3 % (37.0-47.0) Mean Corpuscular Volume 96 FL (80-99) Mean Corpuscular Hemoglobin 31.9 PG (27.0-31.0) H Mean Corpuscular Hemoglobin Concent 33.3 G/DL (32.0-36.0) Red Cell Distribution Width 12.3 % (11.6-14.8) Platelet Count 161 K/UL (150-450) Mean Platelet Volume 6.3 FL (6.5-10.1) L Neutrophils (%) (Auto) 56.0 % (45.0-75.0) Lymphocytes (%) (Auto) 26.8 % (20.0-45.0) Monocytes (%) (Auto) 9.1 % (1.0-10.0) Eosinophils (%) (Auto) 6.8 % (0.0-3.0) H Basophils (%) (Auto) 1.4 % (0.0-2.0) Sodium Level 143 MMOL/L (136-145) Potassium Level 4.6 MMOL/L (3.5-5.1) Chloride Level 110 MMOL/L (98-107) H Carbon Dioxide Level 27 MMOL/L (21-32) Anion Gap 6 mmol/L (5-15) Blood Urea Nitrogen 18 mg/dL (7-18) Creatinine 1.2 MG/DL (0.55-1.30) Estimat Glomerular Filtration Rate mL/min (>60) Glucose Level 84 MG/DL (74-106) Calcium Level 8.8 MG/DL (8.5-10.1) Objective General Appearance: WD/WN, no apparent distress, alert EENT: PERRL/EOMI, normal ENT inspection Neck: non-tender, normal alignment, supple Cardiovascular: normal peripheral pulses, normal rate, regular rhythm, no gallop/murmur, no JVD Respiratory/Chest: chest wall non-tender, lungs clear, normal breath sounds, no respiratory distress, no accessory muscle use Abdomen: normal bowel sounds, non tender, soft, no organomegaly, no mass Extremities: normal range of motion, non-tender 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 (5) Post-menopausal bleeding Assessment & Plan: See CAN OPERATOR note. Unable to perform endometrial biopsy. Not a surgical candidate at this time. (6) UTI (urinary tract infection) Assessment & Plan: ESBL E. Coli. See ID consult. D/C ceftriaxone; start Invanz (7) CHF (congestive heart failure) (8) Alzheimer's dementia (9) Hypercholesteremia (10) Hypertension Status: stable Assessment/Plan Discharge planning: ELIUD Spencer Apr 19, 2017 14:09
[2017-04-19] MEDS ORDERED: Tubing IV Secondary IV ONE (14:50)
[2017-04-19] MEDS: Ertapenem 1 GM in NS 55 ML IVPB SCH (17:06)
[2017-04-20 03:57] VITALS: BP 107/60
[2017-04-20] MEDS: Carvedilol 12.5mg tab ORAL SCH (05:02)
[2017-04-20] MEDS: NovoLOG Insulin Flexpen SUBQ SCH ×2 (06:05→11:41)
[2017-04-20 07:05] LABS: BASOPHILS % (AUTO) 1.3 % (0.0-2.0); EOSINOPHILS % (AUTO) 8.3 % (0.0-3.0); LYMPHOCYTES % (AUTO) 27.8 % (20.0-45.0); MEAN CORPUSCULAR HGB CONC 33.1 G/DL (32.0-36.0); MEAN CORPUSCULAR VOLUME 94 FL (80-99); MEAN PLATELET VOLUME 6.8 FL (6.5-10.1); MONOCYTES % (AUTO) 8.8 % (1.0-10.0); NEUTROPHILS % (AUTO) 53.8 % (45.0-75.0); PLATELET COUNT 175 K/UL (150-450); RED BLOOD COUNT 4.14 M/UL (4.20-5.40); RED CELL DISTRIBUTION WIDTH 12.1 % (11.6-14.8); WHITE BLOOD COUNT 5.3 K/UL (4.8-10.8)
[2017-04-20 07:13] LABS: ANION GAP 6 mmol/L (5-15); CALCIUM 8.7 MG/DL (8.5-10.1); CARBON DIOXIDE 25 MMOL/L (21-32); CHLORIDE 110 MMOL/L (98-107); CREATININE 1.1 MG/DL (0.55-1.30); POTASSIUM 4.5 MMOL/L (3.5-5.1); SODIUM 141 MMOL/L (136-145)
[2017-04-20 08:00] VITALS: BP 117/64
[2017-04-20] MEDS: Aspirin EC 81mg tab ORAL SCH (08:44)
[2017-04-20] MEDS: Donepezil 10mg tab ORAL SCH (08:45)
[2017-04-20] MEDS: Lisinopril 2.5mg tab ORAL SCH (09:00)
--- NOTE | 2017-04-20 11:16 | Internal Med Progress Note ---
Subjective Date of Service: Apr 20, 2017 Physician Name Eliud Jorgensen Attending Physician Van Gomes MD Current Medications Medications (Trade) Dose Ordered Sig/Dat Route PRN Reason Start Time Stop Time Status Last Admin Dose Admin Acetaminophen (Tylenol) 650 mg Q4H PRN ORAL T>100.5 F 04/15/17 18:00 05/15/17 17:59 Al Hydroxide/Mg Hydroxide (Mylanta II) 30 ml Q6H PRN ORAL dyspepsia 04/15/17 18:00 05/15/17 17:59 Albuterol/ Ipratropium (Albuterol/ Ipratropium) 3 ml Q4H PRN HHN Shortness of Breath 04/15/17 19:15 04/20/17 19:14 Aspirin (Ecotrin) 81 mg DAILY ORAL 04/19/17 09:00 05/19/17 08:59 04/20/17 08:44 Atorvastatin Calcium (Lipitor) 10 mg BEDTIME ORAL 04/15/17 21:00 05/15/17 20:59 04/19/17 20:49 Carvedilol (Coreg) 12.5 mg Q12HR@0600,1800 ORAL 04/15/17 18:00 05/15/17 17:59 04/18/17 06:37 Dextrose (Dextrose 50%) STAT PRN IV Hypoglycemia 04/15/17 18:00 05/15/17 17:59 Donepezil HCl (Aricept) 10 mg DAILY ORAL 04/16/17 09:00 05/16/17 08:59 04/20/17 08:45 Ertapenem 1 gm/ Sodium Chloride 55 ml @ 110 mls/hr Q24H IVPB 04/18/17 18:00 04/23/17 17:59 04/19/17 17:06 Gabapentin (Neurontin) 600 mg BID ORAL 04/15/17 18:00 05/15/17 17:59 04/20/17 08:44 Insulin Aspart (NovoLOG) BEFORE MEALS AND HS SUBQ 04/15/17 21:00 05/15/17 20:59 04/19/17 17:14 Lisinopril (Zestril) 5 mg DAILY ORAL 04/16/17 09:00 05/16/17 08:59 Lorazepam (Ativan 2mg/ml 1ml) 0.5 mg Q4H PRN IV For Anxiety 04/15/17 18:00 04/22/17 17:59 Morphine Sulfate (Morphine Sulfate) 1 mg Q4H PRN IVP PAIN 4-10 04/15/17 18:00 04/22/17 17:59 Ondansetron HCl (Zofran) 4 mg Q6H PRN IVP Nausea & Vomiting 04/15/17 18:00 05/15/17 17:59 Polyethylene Glycol (Miralax) 17 gm HSPRN PRN ORAL Constipation 04/15/17 18:00 05/15/17 17:59 Promethazine HCl/ Codeine (Phenergan with Codeine) 5 ml Q6H PRN ORAL For Cough 04/15/17 19:15 05/15/17 19:14 Zolpidem Tartrate (Ambien) 5 mg HSPRN PRN ORAL Insomnia 04/15/17 18:00 04/22/17 17:59 Allergies: Coded Allergies: No Known Allergies (Unverified , 04/19/12) ROS Limited/Unobtainable: No Constitutional: Reports: no symptoms HEENT: Reports: no symptoms Cardiovascular: Reports: no symptoms Respiratory: Reports: no symptoms Gastrointestinal/Abdominal: Reports: no symptoms Genitourinary: Reports: no symptoms Neurologic/Psychiatric: Reports: no symptoms Subjective 81 YO F admitted with post menopausal menorrhagia and UTI. Cover for Int Med- Dr Gomes. Await video swallow eval Objective Last Vital Signs Date Time Temp Pulse Resp B/P (MAP) Pulse Ox O2 Delivery O2 Flow Rate FiO2 04/20/17 09:00 117/64 04/20/17 08:00 98.0 61 16 97 Room Air 04/20/17 07:31 21 Laboratory Tests Test 04/20/17 04:45 White Blood Count 5.3 K/UL (4.8-10.8) Red Blood Count 4.14 M/UL (4.20-5.40) L Hemoglobin 12.8 G/DL (12.0-16.0) Hematocrit 38.8 % (37.0-47.0) Mean Corpuscular Volume 94 FL (80-99) Mean Corpuscular Hemoglobin 31.0 PG (27.0-31.0) Mean Corpuscular Hemoglobin Concent 33.1 G/DL (32.0-36.0) Red Cell Distribution Width 12.1 % (11.6-14.8) Platelet Count 175 K/UL (150-450) Mean Platelet Volume 6.8 FL (6.5-10.1) Neutrophils (%) (Auto) 53.8 % (45.0-75.0) Lymphocytes (%) (Auto) 27.8 % (20.0-45.0) Monocytes (%) (Auto) 8.8 % (1.0-10.0) Eosinophils (%) (Auto) 8.3 % (0.0-3.0) H Basophils (%) (Auto) 1.3 % (0.0-2.0) Sodium Level 141 MMOL/L (136-145) Potassium Level 4.5 MMOL/L (3.5-5.1) Chloride Level 110 MMOL/L (98-107) H Carbon Dioxide Level 25 MMOL/L (21-32) Anion Gap 6 mmol/L (5-15) Blood Urea Nitrogen 17 mg/dL (7-18) Creatinine 1.1 MG/DL (0.55-1.30) Estimat Glomerular Filtration Rate mL/min (>60) Glucose Level 92 MG/DL (74-106) Calcium Level 8.7 MG/DL (8.5-10.1) Objective General Appearance: WD/WN, no apparent distress, alert EENT: PERRL/EOMI, normal ENT inspection Neck: non-tender, normal alignment, supple Cardiovascular: normal peripheral pulses, normal rate, regular rhythm, no gallop/murmur, no JVD Respiratory/Chest: chest wall non-tender, lungs clear, normal breath sounds, no respiratory distress, no accessory muscle use Abdomen: normal bowel sounds, non tender, soft, no organomegaly, no mass Extremities: normal range of motion, non-tender 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 (5) Post-menopausal bleeding Assessment & Plan: See REINSURANCE CLERK note. Unable to perform endometrial biopsy. Not a surgical candidate at this time. (6) UTI (urinary tract infection) Assessment & Plan: ESBL E. Coli. See ID consult. Continue Invanz for 5 more days. (7) CHF (congestive heart failure) (8) Alzheimer's dementia (9) Hypercholesteremia (10) Hypertension Status: stable Assessment/Plan Discharge planning: ELIUD Spencer Apr 20, 2017 11:16
[2017-04-20] MEDS ORDERED: INVANZ1 GM IVPB (11:18)
[2017-04-20 12:00] VITALS: BP 115/65
--- NOTE | 2017-04-20 12:52 | Infectious Diseases Prog Note ---
Assessment/Plan Assessment/Plan ASSESSMENT: 1. Extended-spectrum beta-lactamase Escherichia coli UTI 2. Possible sepsis. 3. Letharginess, possibly secondary to above. 4. Vaginal bleed. 5. Anemia. PLAN: 1. Continue Invanz 1 g daily #07/25. 2. Monitor CBC. 3. Monitor BMP. 4. Monitor vital signs. Thank you, Dr. Jorgensen, for allowing me to participate in the care of this patient. I will follow the patient with you during this hospitalization. Discussed with RN Subjective Allergies: Coded Allergies: No Known Allergies (Unverified , 04/19/12) Subjective afebrile no leukocytosis Objective Vital Signs Last 24 Hour Vital Signs Date Time Temp Pulse Resp B/P (MAP) Pulse Ox O2 Delivery O2 Flow Rate FiO2 04/20/17 09:00 117/64 04/20/17 08:00 98.0 61 16 117/64 97 Room Air 04/20/17 07:31 53 18 Room Air 21 04/20/17 05:02 60 107/60 04/20/17 03:57 97.7 60 18 107/60 98 Room Air 04/19/17 23:55 96.8 58 18 111/57 96 04/19/17 21:38 64 18 Room Air 21 04/19/17 20:00 Room Air 04/19/17 19:53 97.5 63 18 106/61 96 04/19/17 17:14 59 117/67 04/19/17 16:39 97.4 59 16 117/67 95 Room Air Height (Feet): 5 Height (Inches): 4.00 Weight (Pounds): 150 Objective HEENT: No pale conjunctivae. No icterus. NECK: No lymphadenopathy. CHEST: Clear. HEART: S1, S2. ABDOMEN: Soft, nontender. EXTREMITIES: No cyanosis at this time. NEUROLOGIC: Lethargic. Laboratory Tests Test 04/20/17 04:45 White Blood Count 5.3 K/UL (4.8-10.8) Red Blood Count 4.14 M/UL (4.20-5.40) L Hemoglobin 12.8 G/DL (12.0-16.0) Hematocrit 38.8 % (37.0-47.0) Mean Corpuscular Volume 94 FL (80-99) Mean Corpuscular Hemoglobin 31.0 PG (27.0-31.0) Mean Corpuscular Hemoglobin Concent 33.1 G/DL (32.0-36.0) Red Cell Distribution Width 12.1 % (11.6-14.8) Platelet Count 175 K/UL (150-450) Mean Platelet Volume 6.8 FL (6.5-10.1) Neutrophils (%) (Auto) 53.8 % (45.0-75.0) Lymphocytes (%) (Auto) 27.8 % (20.0-45.0) Monocytes (%) (Auto) 8.8 % (1.0-10.0) Eosinophils (%) (Auto) 8.3 % (0.0-3.0) H Basophils (%) (Auto) 1.3 % (0.0-2.0) Sodium Level 141 MMOL/L (136-145) Potassium Level 4.5 MMOL/L (3.5-5.1) Chloride Level 110 MMOL/L (98-107) H Carbon Dioxide Level 25 MMOL/L (21-32) Anion Gap 6 mmol/L (5-15) Blood Urea Nitrogen 17 mg/dL (7-18) Creatinine 1.1 MG/DL (0.55-1.30) Estimat Glomerular Filtration Rate mL/min (>60) Glucose Level 92 MG/DL (74-106) Calcium Level 8.7 MG/DL (8.5-10.1) Current Medications Medications (Trade) Dose Ordered Sig/Dat Route PRN Reason Start Time Stop Time Status Last Admin Dose Admin Acetaminophen (Tylenol) 650 mg Q4H PRN ORAL T>100.5 F 04/15/17 18:00 05/15/17 17:59 Al Hydroxide/Mg Hydroxide (Mylanta II) 30 ml Q6H PRN ORAL dyspepsia 04/15/17 18:00 05/15/17 17:59 Albuterol/ Ipratropium (Albuterol/ Ipratropium) 3 ml Q4H PRN HHN Shortness of Breath 04/15/17 19:15 04/20/17 19:14 Aspirin (Ecotrin) 81 mg DAILY ORAL 04/19/17 09:00 05/19/17 08:59 04/20/17 08:44 Atorvastatin Calcium (Lipitor) 10 mg BEDTIME ORAL 04/15/17 21:00 05/15/17 20:59 04/19/17 20:49 Carvedilol (Coreg) 12.5 mg Q12HR@0600,1800 ORAL 04/15/17 18:00 05/15/17 17:59 04/18/17 06:37 Dextrose (Dextrose 50%) STAT PRN IV Hypoglycemia 04/15/17 18:00 05/15/17 17:59 Donepezil HCl (Aricept) 10 mg DAILY ORAL 04/16/17 09:00 05/16/17 08:59 04/20/17 08:45 Ertapenem 1 gm/ Sodium Chloride 55 ml @ 110 mls/hr Q24H IVPB 04/18/17 18:00 04/23/17 17:59 04/19/17 17:06 Gabapentin (Neurontin) 600 mg BID ORAL 04/15/17 18:00 05/15/17 17:59 04/20/17 08:44 Insulin Aspart (NovoLOG) BEFORE MEALS AND HS SUBQ 04/15/17 21:00 05/15/17 20:59 04/20/17 11:41 Lisinopril (Zestril) 5 mg DAILY ORAL 04/16/17 09:00 05/16/17 08:59 Lorazepam (Ativan 2mg/ml 1ml) 0.5 mg Q4H PRN IV For Anxiety 04/15/17 18:00 04/22/17 17:59 Morphine Sulfate (Morphine Sulfate) 1 mg Q4H PRN IVP PAIN 4-10 04/15/17 18:00 04/22/17 17:59 Ondansetron HCl (Zofran) 4 mg Q6H PRN IVP Nausea & Vomiting 04/15/17 18:00 05/15/17 17:59 Polyethylene Glycol (Miralax) 17 gm HSPRN PRN ORAL Constipation 04/15/17 18:00 05/15/17 17:59 Promethazine HCl/ Codeine (Phenergan with Codeine) 5 ml Q6H PRN ORAL For Cough 04/15/17 19:15 05/15/17 19:14 Zolpidem Tartrate (Ambien) 5 mg HSPRN PRN ORAL Insomnia 04/15/17 18:00 04/22/17 17:59 Asia Rios M.D. Apr 20, 2017 12:52
--- NOTE | 2017-04-20 17:05 | Pulmonology Progress Note ---
Assessment/Plan Problems: (1) Vaginal bleeding (2) COPD (chronic obstructive pulmonary disease) (3) Alzheimer's dementia (4) Diabetes (5) Dementia Assessment/Plan improving h/h stable respiratory treatment symptomatic treatment avoid unnecessary meds Subjective ROS Limited/Unobtainable: No Constitutional: Reports: no symptoms HEENT: Repors: no symptoms Respiratory: Reports: no symptoms Cardiovascular: Reports: no symptoms Allergies: Coded Allergies: No Known Allergies (Unverified , 04/19/12) Objective Last 24 Hour Vital Signs Date Time Temp Pulse Resp B/P (MAP) Pulse Ox O2 Delivery O2 Flow Rate FiO2 04/20/17 12:00 97.5 56 19 115/65 96 04/20/17 09:00 117/64 04/20/17 08:00 98.0 61 16 117/64 97 Room Air 04/20/17 07:31 53 18 Room Air 21 04/20/17 05:02 60 107/60 04/20/17 03:57 97.7 60 18 107/60 98 Room Air 04/19/17 23:55 96.8 58 18 111/57 96 04/19/17 21:38 64 18 Room Air 21 04/19/17 20:00 Room Air 04/19/17 19:53 97.5 63 18 106/61 96 04/19/17 17:14 59 117/67 General Appearance: WD/WN HEENT: normocephalic, atraumatic Respiratory/Chest: chest wall non-tender, lungs clear Abdomen: normal bowel sounds, non distended Extremities: no cyanosis Skin: no rash, no lesions Laboratory Tests 04/20/17 04:45: White Blood Count 5.3, Red Blood Count 4.14L, Hemoglobin 12.8, Hematocrit 38.8, Mean Corpuscular Volume 94, Mean Corpuscular Hemoglobin 31.0, Mean Corpuscular Hemoglobin Concent 33.1, Red Cell Distribution Width 12.1, Platelet Count 175, Mean Platelet Volume 6.8, Neutrophils (%) (Auto) 53.8, Lymphocytes (%) (Auto) 27.8, Monocytes (%) (Auto) 8.8, Eosinophils (%) (Auto) 8.3H, Basophils (%) (Auto ) 1.3, Sodium Level 141, Potassium Level 4.5, Chloride Level 110H, Carbon Dioxide Level 25, Anion Gap 6, Blood Urea Nitrogen 17, Creatinine 1.1, Estimat Glomerular Filtration Rate , Glucose Level 92, Calcium Level 8.7 ILANA PIERCE Apr 20, 2017 17:05
--- NOTE | 2017-04-20 23:24 | General Progress Note ---
Assessment/Plan Status: stable Assessment/Plan encephalopathy dementia -cont current meds Subjective Date patient seen: Apr 19, 2017 Neurologic/Psychiatric: Reports: anxiety, depressed Allergies: Coded Allergies: No Known Allergies (Unverified , 04/19/12) Subjective the pt is same no agitation today Objective Last 24 Hour Vital Signs Date Time Temp Pulse Resp B/P (MAP) Pulse Ox O2 Delivery O2 Flow Rate FiO2 04/20/17 12:00 97.5 56 19 115/65 96 04/20/17 09:00 117/64 04/20/17 08:00 98.0 61 16 117/64 97 Room Air 04/20/17 07:31 53 18 Room Air 21 04/20/17 05:02 60 107/60 04/20/17 03:57 97.7 60 18 107/60 98 Room Air 04/19/17 23:55 96.8 58 18 111/57 96 Laboratory Tests 04/20/17 04:45: White Blood Count 5.3, Red Blood Count 4.14L, Hemoglobin 12.8, Hematocrit 38.8, Mean Corpuscular Volume 94, Mean Corpuscular Hemoglobin 31.0, Mean Corpuscular Hemoglobin Concent 33.1, Red Cell Distribution Width 12.1, Platelet Count 175, Mean Platelet Volume 6.8, Neutrophils (%) (Auto) 53.8, Lymphocytes (%) (Auto) 27.8, Monocytes (%) (Auto) 8.8, Eosinophils (%) (Auto) 8.3H, Basophils (%) (Auto ) 1.3, Sodium Level 141, Potassium Level 4.5, Chloride Level 110H, Carbon Dioxide Level 25, Anion Gap 6, Blood Urea Nitrogen 17, Creatinine 1.1, Estimat Glomerular Filtration Rate , Glucose Level 92, Calcium Level 8.7 Height (Feet): 5 Height (Inches): 4.00 Weight (Pounds): 150 General Appearance: no apparent distress, confused Preston Suazo M.D. Apr 20, 2017 23:24
--- NOTE | 2017-04-20 23:24 | General Progress Note ---
Assessment/Plan Assessment/Plan encephalopathy dementia -cont current meds Subjective Date patient seen: Apr 20, 2017 Neurologic/Psychiatric: Reports: anxiety Allergies: Coded Allergies: No Known Allergies (Unverified , 04/19/12) Subjective the pt is same no agitation today Objective Last 24 Hour Vital Signs Date Time Temp Pulse Resp B/P (MAP) Pulse Ox O2 Delivery O2 Flow Rate FiO2 04/20/17 12:00 97.5 56 19 115/65 96 04/20/17 09:00 117/64 04/20/17 08:00 98.0 61 16 117/64 97 Room Air 04/20/17 07:31 53 18 Room Air 21 04/20/17 05:02 60 107/60 04/20/17 03:57 97.7 60 18 107/60 98 Room Air 04/19/17 23:55 96.8 58 18 111/57 96 Laboratory Tests 04/20/17 04:45: White Blood Count 5.3, Red Blood Count 4.14L, Hemoglobin 12.8, Hematocrit 38.8, Mean Corpuscular Volume 94, Mean Corpuscular Hemoglobin 31.0, Mean Corpuscular Hemoglobin Concent 33.1, Red Cell Distribution Width 12.1, Platelet Count 175, Mean Platelet Volume 6.8, Neutrophils (%) (Auto) 53.8, Lymphocytes (%) (Auto) 27.8, Monocytes (%) (Auto) 8.8, Eosinophils (%) (Auto) 8.3H, Basophils (%) (Auto ) 1.3, Sodium Level 141, Potassium Level 4.5, Chloride Level 110H, Carbon Dioxide Level 25, Anion Gap 6, Blood Urea Nitrogen 17, Creatinine 1.1, Estimat Glomerular Filtration Rate , Glucose Level 92, Calcium Level 8.7 Height (Feet): 5 Height (Inches): 4.00 Weight (Pounds): 150 Preston Suazo M.D. Apr 20, 2017 23:24
[2017-04-23] MEDS ORDERED: ASPIRIN EC81 MG ORAL (07:52)
--- NOTE | 2017-04-23 07:52 | Discharge Summary ---
Discharge Summary Hospital Course Date of Admission Apr 15, 2017 at 16:50 Date of Discharge Apr 20, 2017 at 15:05 Admitting Diagnosis vaginal bleeding NAOMIE Herzog is a 81 year old female who was admitted on Apr 15, 2017 at 16:50 for Vaginal Bleeding Hospital Course dc summary #[id number] Discharge Medications New Medications: Aspirin Ec* (Aspirin Ec*) 81 Mg Tablet. 81 MG ORAL DAILY, #30 TAB Ertapenem Sodium* (INVanz*) 1 Gm Vial.port 1 GM IVPB Q24H for 5 Days, VIAL Continued Medications: Acetaminophen* (Tylenol*) 500 Mg Tab 500 MG PO Q8H PRN, #10 TAB Alendronate Sodium* (Fosamax*) 70 Mg Tablet 70 MG ORAL ONCE A WEEK, TAB Take with 6-8 oz water at least 30 minutes before first food; Sit upright for at least 30min after medication administration Atorvastatin Calcium* (Atorvastatin Calcium*) 20 Mg Tablet 10 MG ORAL BEDTIME, TAB Bisacodyl* (Dulcolax*) 5 Mg Tablet.dr 10 MG PO DAILY Carvedilol (Coreg) 12.5 Mg Tab 12.5 MG PO Q12H, #20 TAB Clopidogrel Bisulfate* (Plavix*) 75 Mg Tablet 75 MG PO DAILY, #10 TAB Take 1 tablet by mouth daily. Docusate Sodium* (Colace*) 100 Mg Capsule 100 MG PO BID, #10 CAP Donepezil Hcl* (Aricept*) 10 Mg Tablet 10 MG ORAL DAILY, TAB Furosemide* (Lasix*) 20 Mg Tablet 20 MG PO QOD, #10 TAB Take 1 tablet by mouth daily Gabapentin* (Gabapentin*) 600 Mg Tablet 600 MG PO BID, #21 CAP Guaifenesin/Dextromethorphan (Robitussin Dm To Go Liquid) 10 Ml Prfl.spoon 10 ML PO Insulin Aspart* (Novolog*) 100 Unit/1 Ml Insuln.pen 0 SUBQ, #1 EA 0 Refills Isosorbide Mononitrate* (Imdur*) 30 Mg Tab.er.24h 30 MG PO DAILY Lisinopril* (Zestril*) 5 Mg Tablet 5 MG PO DAILY, #10 TAB Take 1 tablet by mouth every day. Magnesium Hydroxide (Milk of Magnesia) 30 Ml Susp 30 ML PO DAILY PRN Memantine Hcl* (Namenda*) 10 Mg Tablet 10 MG PO BID, #20 TAB Take one tablet by mouth twice a day Metoclopramide Hcl* (Reglan*) 5 Mg Tablet 5 MG ORAL EVERY 6 HOURS, TAB Mirtazapine* (Remeron*) 15 Mg Tablet 15 MG ORAL BEDTIME, TAB Multivitamin With Minerals (Multivitamins With Minerals*) 1 Each Tablet 1 TAB ORAL DAILY, TAB Nitroglycerin (Nitroglycerin) 0.4 Mg Tab.subl 0.4 MG SL PRN Omeprazole Magnesium (Prilosec Otc) 20 Mg Tablet.dr 20 MG ORAL DAILY, TAB Polyethylene Glycol 3350* (Miralax*) 17 Gm Powd.pack 17 GM ORAL DAILY, PACKET Potassium Chloride/D5w (Kcl 20 Meq In D5w Solution) 20 Meq/1000 Ml Iv.soln 20 MEQ PO QOD Tramadol Hcl* (Ultram*) 50 Mg Tablet 50 MG ORAL Q6H PRN for For Pain, TAB 0 Refills Vit B Cmplx 3/Fa/Vit C/Biotin (Zoe-Reyes Rx Tablet) 1 Each Tablet 1 EACH PO, TAB Zolpidem Tartrate* (Ambien*) 5 Mg Tablet 5 MG PO HS Discontinued Medications: Cephalexin* (Keflex*) 500 Mg Capsule 500 MG ORAL EVERY 6 HOURS for 5 Days, CAP 0 Refills Doxycycline Hyclate (Doxycycline Hyclate) 100 Mg Capsule 100 MG PO BID for 5 Days, CAP Nph, Human Insulin Isophane* (Novolin N*) 100 Unit/1 Ml Vial 0 SUBQ for Sliding Scale, VIAL Potassium Bicarbonate/Cit Ac (Potassium 25 Meq Tablet Eff) 25 Meq Tablet.eff 10 MEQ PO BID, TAB Pravastatin Sod (Pravachol) 80 Mg Tablet 80 MG PO HS Vitamin B Cmplx/Vit C/Folic AC (Nephro-Reyes Tablet) 1 Tab Tab 1 TAB ORAL DAILY, TAB 0 Refills Discharge Condition Upon Discharge: stable Discharge Disposition Patient was discharged to SNF/Subacute Facility(03) Discharge Diagnoses: Chaz (Laura Doe NP Apr 23, 2017 07:52
--- NOTE | 2017-04-23 11:09 | Diagnostic Imaging Report ---
Indications: DYSPHAGIA Technique: Patient ingested multiple substances under the supervision of speech pathology. Video fluoroscopic recording performed. Total fluoroscopy time 291 seconds. Total dose area product [id number] mGycm2 Comparison: none Findings: Ingested thin liquid barium demonstrates early pooling in the vallecula and puriform sinuses, equivocal trace penetration, no aspiration. Ingestion of nectar thick liquid barium demonstrates equivocal trace penetration. Early pooling in the vallecula and puriform sinuses. Delay in initiation of deglutition. Ingestion of honey thick liquid barium and barium pur?e demonstrates delayed initiation of deglutition, early pooling in the vallecula and puriform sinuses, no evidence of aspiration or penetration. Impression: Equivocal trace aspiration of nectar thick and thin liquid barium. Other oromotor dysfunction as described Please refer to speech pathology report for more detailed analysis
--- NOTE | 2017-04-23 19:45 | Discharge Summary 2 SIG ---
DATE OF ADMISSION: 04/15/2017 DATE OF DISCHARGE: 04/20/2017 REASON FOR ADMISSION: 81-year-old female with a history of hypertension, congestive heart failure, coronary artery disease, diabetes, chronic obstructive pulmonary disease, and Alzheimer dementia, who was taking aspirin and Plavix at the [facility], presented with vaginal bleeding for two days. The patient was unable to provide any history. halfway reported vaginal bleeding for two days and wetting about 10 pads. Aspirin and Plavix were held. Upon evaluation, the patient had stable vital signs. Hemoglobin and hematocrit were stable. GAS STATION ATTENDANT consult was requested. EKG revealed normal sinus rhythm with T-wave inversion in lead III and aVF. No ectopy. No premature ventricular contraction. Troponin negative. The patient had no leukocytosis. Stable electrolytes. BUN- 28 and creatinine- 1.3. Urinalysis with evidence of urinary tract infection with pyuria, moderate bacteria, positive nitrites, and positive leukocyte esterase. The patient was admitted with vaginal bleeding and urinary tract infection. HOSPITAL COURSE: The patient was admitted. Gynecology consult was requested. Meantime, while waiting for consultation, the patient undergone abdominal pelvic transvaginal ultrasound, which revealed fluid in the endometrium, nonspecific, could be blood , given stated clinical history of postmenopausal bleeding. Heterogeneous myometrium with calcification likely reflecting old fibroids. A 3.5 cm right ovarian cyst slightly increased in size from 2.5 cm on 08/08/2013 and nonvisualization of left ovary. FLOUR BLENDER specialist seen and evaluated this patient with postmenopausal bleeding and noted that the patient had a minimal bleeding on exam and minimal bleeding while in the hospital. No signs of heavy bleeding or anemia at that time. Possible causes of bleeding could include hematometra secondary to cervical stenosis, endometrial polyp, or endometrial cancer. Endometrial biopsy would be needed to rule out in or out any of the above. However, the patient would not tolerate exam. Thus, biopsy was not feasible at that time. Mixing Machine Feeder discussed options with the patient's daughter including expectant management versus sedation in the operating room. Discussed risks and benefits of both management options . Discussed that if malignancy detected, treatment would be surgical , and the patient was a poor surgical candidate.The patient's daughter did not consented to operative management , given the risk of surgery and sedation. Given the fact that bleeding stopped and was minimal, and inability to perform biopsy due to patient uncooperation, FLOUR BLENDER recommended expectant management with close monitoring of bleeding including pad counts at the nursing facility. Recommended close monitoring of bleeding status and return to emergency department if heavy bleeding recurs or if there would be any signs of anemia. Recommended to restart Plavix and aspirin. Subsequently, aspirin was restarted. The patient was cleared for discharge from FLOUR BLENDER standpoint. Urine culture grew E. coli ESBL. Subsequently, ID consult was requested. The patient was started on Invanz, which will be continued at the [facility] to complete the full course of treatment. Hemoglobin and hematocrit remain stable. Renal parameters and electrolytes were closely monitored. Nephrotoxics were avoided. Blood sugar was managed with sliding scale of insulin. Blood pressure was managed with ORESTES inhibitor and beta-chris. Statin was continued. No evidence of congestive heart failure exacerbation. Anti-failure medication regimen continued such as Lasix, beta-chris, and ORESTES inhibitor. last ECHO in 2013 with EF 45-50%. Venous Duplex of bilateral lower extremities was negative. Aricept and Namenda were continued. Psychiatrist followed and diagnosed with major depressive disorder . Pain management provided. Supplemental oxygen provided as needed to keep saturation above 92%. Bowel regimen instituted. Video swallow evaluation revealed moderate to severe oropharyngeal dysphagia.Diet was changed as per speech therapist recommendations with strict aspiration/reflux precautions. The patient was stable for discharge back to [facility]. Closely monitor for any signs of bleeding and return to emergency department if signs of heavy bleeding or evidence of severe anemia. DISCHARGE DIAGNOSES: 1. Postmenopausal bleeding. 2. Urinary tract infection with Escherichia coli extended-spectrum beta-lactamases. 3. Possible sepsis 4. Hypertension. 5. Coronary artery disease with history of myocardial infarction. 6. Chronic obstructive pulmonary disease. 7. Diabetes. 8. Chronic kidney disease. 9. Major depressive disorder. 10. Hypercholesteremia. 11. Congestive heart failure. 12. Alzheimer dementia DISCHARGE MEDICATIONS: See medication reconciliation list. DISCHARGE INSTRUCTIONS: The patient was discharged to [facility]. Follow up with medical doctor at the facility. Closely monitor post menopausal bleeding. Monitor hemoglobin and hematocrit closely. Van Gomes M.D. Laura Ware N.P. (Vanchtein) DR: LONDON JOB#: [id number] CC: KALLIE
== END 2017-04-20 15:05 | DRG 760 ==
LOC: EDBD 15:41 → EMR 16:14 → 4E 16:50 → EDBEDREQ 17:23 → 4E 20:51
DX: N95.0 Postmenopausal bleeding (principal); N39.0 Urinary tract infection, site not specified; E11.22 Type 2 diabetes mellitus with diabetic chronic kidney disease; I50.9 Heart failure, unspecified; G30.9 Alzheimer's disease, unspecified; F02.80 Dementia in other diseases classified elsewhere, unspecified severity, without behavioral disturbance, psychotic disturbance, mood disturbance, and anxiety; J44.9 Chronic obstructive pulmonary disease, unspecified; I10 Essential (primary) hypertension; I25.10 Atherosclerotic heart disease of native coronary artery without angina pectoris; I25.2 Old myocardial infarction; I12.9 Hypertensive chronic kidney disease with stage 1 through stage 4 chronic kidney disease, or unspecified chronic kidney disease; N18.9 Chronic kidney disease, unspecified; M81.0 Age-related osteoporosis without current pathological fracture; Z79.02 Long term (current) use of antithrombotics/antiplatelets; Z79.4 Long term (current) use of insulin; E78.00 Pure hypercholesterolemia, unspecified; B96.20 Unspecified Escherichia coli [E. coli] as the cause of diseases classified elsewhere; Z16.12 Extended spectrum beta lactamase (ESBL) resistance; F32.9 Major depressive disorder, single episode, unspecified; R53.83 Other fatigue; D64.9 Anemia, unspecified
CPT/HCPCS: 36415; 51701; 74230; 76830; 76856; 80048; 80053; 80061; 81003; 82962; 83690; 84484; 85025; 85610; 85730; 86850; 86900; 86901; 87081; 87086; 87181; 93005; 93970; 94664; 99285; J1815

== ENCOUNTER 2017-04-28 15:07 | Inpatient (IN) | payer MEDICARE, OTHER ==
[~2017-04-28] VITALS: Ht 149.9 cm; Wt 56.2 kg
--- NOTE | 2017-04-28 15:01 | Emergency Room Report ---
History of Present Illness Present Illness HPI Patient is a 81-year-old female who presented after increased altered level of consciousness. The patient was sent in by Dr. Gomes from [facility]. Patient was noted to hypotension. Patient prior history of dementia. Patient had been noted to have a limited additional intervention CODE STATUS. Allergies: Coded Allergies: No Known Allergies (Unverified , 04/19/12) Patient History Past Medical History: see triage record Reviewed Nursing Documentation: PMH: Agreed, PSxH: Agreed Review of Systems All Other Systems: negative except mentioned in HPI Physical Exam Sp02 EP Interpretation: reviewed, normal General Appearance: normal inspection, well appearing, no apparent distress, alert, Chronically Ill Head: atraumatic ENT: normal ENT inspection, hearing grossly normal, normal voice Neck: normal inspection, full range of motion, supple, no bony tend Respiratory: normal inspection, lungs clear, normal breath sounds, no respiratory distress, no retraction, no wheezing Cardiovascular #1: regular rate, rhythm, no edema Gastrointestinal: normal inspection, normal bowel sounds, non tender, soft, no guarding, no hernia Musculoskeletal: normal inspection, back normal, normal range of motion Neurologic: normal inspection, alert, responsive, speech normal Psychiatric: normal inspection, judgement/insight normal, mood/affect normal Skin: normal inspection, normal color, no rash Medical Decision Making Diagnostic Impression: Primary Impression: Hypotension Additional Impressions: Dementia CHF (congestive heart failure) UTI (urinary tract infection) ER Course Patient presented for generalized weakness and hypotension. The differential diagnosis included was not limited to dehydration, sepsis, myocardial infarction and among others.Because of complexity of patient's case laboratory testing and imaging studies were ordered.Patient given IV fluids as well as IV antibiotics.Dr. Van Gomes was contacted for inpatient management due to primary care physician Labs Test 04/28/17 15:30 04/28/17 15:39 Urine Color Yellow Urine Appearance Clear Urine pH 5 (4.5-8.0) Urine Specific [place] 1.020 (1.005-1.035) Urine Protein 1+ (NEGATIVE) Urine Glucose (UA) Negative (NEGATIVE) Urine Ketones 1+ (NEGATIVE) Urine Occult Blood Negative (NEGATIVE) Urine Nitrite Negative (NEGATIVE) Urine Bilirubin Negative (NEGATIVE) Urine Urobilinogen 1 MG/DL (0.0-1.0) Urine Leukocyte Esterase 1+ (NEGATIVE) Urine RBC 2-4 /HPF (0 - 2) Urine WBC 5-10 /HPF (0 - 2) Urine Squamous Epithelial Cells Few /LPF (NONE/OCC) Urine Bacteria Few /HPF (NONE) Urine Fine Granular Casts 2-4 /LPF (NONE) White Blood Count 7.8 K/UL (4.8-10.8) Red Blood Count 4.34 M/UL (4.20-5.40) Hemoglobin 12.7 G/DL (12.0-16.0) Hematocrit 41.4 % (37.0-47.0) Mean Corpuscular Volume 95 FL (80-99) Mean Corpuscular Hemoglobin 29.2 PG (27.0-31.0) Mean Corpuscular Hemoglobin Concent 30.6 G/DL (32.0-36.0) Red Cell Distribution Width 12.2 % (11.6-14.8) Platelet Count 181 K/UL (150-450) Mean Platelet Volume 6.5 FL (6.5-10.1) Neutrophils (%) (Auto) 78.0 % (45.0-75.0) Lymphocytes (%) (Auto) 13.9 % (20.0-45.0) Monocytes (%) (Auto) 3.6 % (1.0-10.0) Eosinophils (%) (Auto) 3.3 % (0.0-3.0) Basophils (%) (Auto) 1.3 % (0.0-2.0) Sodium Level 144 MMOL/L (136-145) Potassium Level 4.2 MMOL/L (3.5-5.1) Chloride Level 110 MMOL/L (98-107) Carbon Dioxide Level 22 MMOL/L (21-32) Anion Gap 12 mmol/L (5-15) Blood Urea Nitrogen 34 mg/dL (7-18) Creatinine 1.9 MG/DL (0.55-1.30) Estimat Glomerular Filtration Rate mL/min (>60) Glucose Level 191 MG/DL (74-106) Lactic Acid Level 1.50 mmol/L (0.66-2.22) Calcium Level 8.8 MG/DL (8.5-10.1) Phosphorus Level 4.8 MG/DL (2.5-4.9) Magnesium Level 2.4 MG/DL (1.8-2.4) Total Bilirubin 0.3 MG/DL (0.2-1.0) Aspartate Amino Transf (AST/SGOT) 26 U/L (15-37) Alanine Aminotransferase (ALT/SGPT) 28 U/L (12-78) Alkaline Phosphatase 74 U/L (46-116) Total Creatine Kinase 19 U/L (26-308) Creatine Kinase MB 0.9 NG/ML (0.0-3.6) Creatine Kinase MB Relative Index 4.7 Troponin I 0.003 ng/mL (0.000-0.056) Total Protein 6.8 G/DL (6.4-8.2) Albumin 3.0 G/DL (3.4-5.0) Globulin 3.8 g/dL Albumin/Globulin Ratio 0.8 (1.0-2.7) EKG Diagnostic Results Rate: normal Rhythm: NSR ST Segments: no acute changes Rhythm Strip Diag. Results EP Interpretation: yes Rhythm: NSR, no PVC's, no ectopy Status: unchanged Disposition: ADMITTED INPATIENT Condition: Serious Alexx Butts Apr 28, 2017 15:01
[~2017-04-28 15:07] MED LIST changes: +ASPIRIN EC81 MG ORAL; +INVANZ1 GM IVPB
[2017-04-28 15:47] VITALS: BP 93/35
[2017-04-28 16:06] LABS: BASOPHILS % (AUTO) 1.3 % (0.0-2.0); EOSINOPHILS % (AUTO) 3.3 % (0.0-3.0); LYMPHOCYTES % (AUTO) 13.9 % (20.0-45.0); MEAN CORPUSCULAR HEMOGLOBIN 29.2 PG (27.0-31.0); MEAN CORPUSCULAR HGB CONC 30.6 G/DL (32.0-36.0); MEAN CORPUSCULAR VOLUME 95 FL (80-99); MEAN PLATELET VOLUME 6.5 FL (6.5-10.1); MONOCYTES % (AUTO) 3.6 % (1.0-10.0); PLATELET COUNT 181 K/UL (150-450); RED BLOOD COUNT 4.34 M/UL (4.20-5.40); RED CELL DISTRIBUTION WIDTH 12.2 % (11.6-14.8); WHITE BLOOD COUNT 7.8 K/UL (4.8-10.8)
[2017-04-28 16:07] LABS: APPEARANCE,URINE CLEAR; KETONES,URINE 1+ (NEGATIVE); LEUKOCYTE ESTERASE ,URINE 1+ (NEGATIVE); NITRITE,URINE NEGATIVE (NEGATIVE); PH,URINE 5 (4.5-8.0); PROTEIN,URINE 1+ (NEGATIVE); UROBILINOGEN,URINE 1 MG/DL (0.0-1.0)
[2017-04-28 16:12] LABS: ANION GAP 12 mmol/L (5-15); CALCIUM 8.8 MG/DL (8.5-10.1); CARBON DIOXIDE 22 MMOL/L (21-32); CHLORIDE 110 MMOL/L (98-107); CREATININE 1.9 MG/DL (0.55-1.30); POTASSIUM 4.2 MMOL/L (3.5-5.1); SODIUM 144 MMOL/L (136-145)
[2017-04-28 16:16] LABS: BACTERIA,URINE FEW /HPF; SQUAMOUS EPITHELIAL CELL,UR FEW /LPF (NONE/OCC)
[2017-04-28 16:25] LABS: ALANINE AMINOTRANSFERASE 28 U/L (12-78); ALBUMIN/GLOBULIN RATIO 0.8 (1.0-2.7); ASPARTATE AMINO TRANSFERASE 26 U/L (15-37); CKMB 0.9 NG/ML (0.0-3.6); MAGNESIUM 2.4 MG/DL (1.8-2.4); PHOSPHORUS 4.8 MG/DL (2.5-4.9); TOTAL PROTEIN 6.8 G/DL (6.4-8.2)
[2017-04-28 16:30] VITALS: BP 99/44
[2017-04-28] MEDS ORDERED: cefTRIAXone 1 GM in NS 55 ML IVPB ONE (16:30)
--- NOTE | 2017-04-28 16:30 | Diagnostic Imaging Report ---
Indication: Reason For Exam: SOB Technique: One view of the chest Comparison: 08/22/2013 Findings: Heart is enlarged. The aorta is tortuous and calcified. The lungs and pleural spaces are clear. No significant change Impression: No acute process
[2017-04-28] MEDS ORDERED: NEPHROVITE1 TAB ORAL (16:40)
[2017-04-28] MEDS ORDERED: ASPIRIN325 MG ORAL (16:40)
[2017-04-28 17:39] VITALS: BP 105/41
[2017-04-28] MEDS ORDERED: Sodium Chloride 500ML 500 ML IV ONE (19:15)
[2017-04-28 19:20] VITALS: BP 93/35
[2017-04-28] MEDS ORDERED: Morphine Sulfate 2mg/ml Inj IVP PRN (19:30)
[2017-04-28] MEDS ORDERED: Albuterol/Ipratropium 3ml neb HHN PRN (19:30)
[2017-04-28] MEDS ORDERED: Miralax 17gm pkt ORAL PRN (19:30)
[2017-04-28] MEDS ORDERED: Nitroglycerin Subl 0.4mg tab SL PRN (19:30)
[2017-04-28] MEDS: NovoLOG Insulin Flexpen SUBQ SCH (21:00)
[2017-04-28] MEDS ORDERED: Cefepime HCl 2 GM in D5W 110 ML IV SCH (21:00)
[2017-04-28 21:20] VITALS: BP 112/56
[2017-04-28] MEDS ORDERED: Vancomycin 1250mg/D5W 250ml 250 ML IVPB SCH (22:00)
[2017-04-28] MEDS: Heparin 5000 units/ml inj SUBQ SCH (22:44)
[2017-04-29] VITALS: BP 112/65
[2017-04-29] MEDS ORDERED: Cefepime HCl 2 GM in D5W 110 ML IV SCH ×2
[2017-04-29] MEDS ORDERED: Vancomycin 1 GM in D5W 275 ML IV SCH (00:30)
[2017-04-29 04:00] VITALS: BP 112/60
[2017-04-29] MEDS: NovoLOG Insulin Flexpen SUBQ SCH ×4 (05:40→20:37)
[2017-04-29 08:00] VITALS: BP 101/43
[2017-04-29 08:16] LABS: BASOPHILS % (AUTO) 1.4 % (0.0-2.0); EOSINOPHILS % (AUTO) 7.1 % (0.0-3.0); LYMPHOCYTES % (AUTO) 19.5 % (20.0-45.0); MEAN CORPUSCULAR HEMOGLOBIN 29.6 PG (27.0-31.0); MEAN CORPUSCULAR HGB CONC 30.7 G/DL (32.0-36.0); MEAN CORPUSCULAR VOLUME 96 FL (80-99); MEAN PLATELET VOLUME 6.5 FL (6.5-10.1); MONOCYTES % (AUTO) 8.5 % (1.0-10.0); NEUTROPHILS % (AUTO) 63.5 % (45.0-75.0); PLATELET COUNT 160 K/UL (150-450); RED BLOOD COUNT 3.94 M/UL (4.20-5.40); RED CELL DISTRIBUTION WIDTH 12.5 % (11.6-14.8); WHITE BLOOD COUNT 7.6 K/UL (4.8-10.8)
[2017-04-29] MEDS: Heparin 5000 units/ml inj SUBQ SCH ×2 (09:00→20:57)
[2017-04-29 09:27] LABS: ALANINE AMINOTRANSFERASE 23 U/L (12-78); ALBUMIN/GLOBULIN RATIO 0.8 (1.0-2.7); ANION GAP 5 mmol/L (5-15); ASPARTATE AMINO TRANSFERASE 16 U/L (15-37); CALCIUM 8.5 MG/DL (8.5-10.1); CARBON DIOXIDE 28 MMOL/L (21-32); CHLORIDE 111 MMOL/L (98-107); CREATININE 1.4 MG/DL (0.55-1.30); POTASSIUM 3.9 MMOL/L (3.5-5.1); SODIUM 144 MMOL/L (136-145); TOTAL PROTEIN 6.2 G/DL (6.4-8.2)
--- NOTE | 2017-04-29 10:51 | Consultation ---
Consult Note Consult Note ID DIC# [id number] SHAE RODRIGUEZ M.D. Apr 29, 2017 10:51
[2017-04-29 12:00] VITALS: BP 124/80
[2017-04-29] MEDS ORDERED: Ertapenem 0.5 GM in NS 55 ML IVPB SCH (12:00)
--- NOTE | 2017-04-29 12:26 | History & Physical ---
History and Physical History & Physicial Dictated for Int Med- [id number]. KIA LEÓN Apr 29, 2017 12:26
--- NOTE | 2017-04-29 13:41 | Consultation ---
History of Present Illness General Date patient seen: Apr 29, 2017 Chief Complaint: Altered Level of Consciousness Reason for Consultation: dyspnea Present Illness HPI 81-year-old female with hx of dementia, DM, prison resident presented to Er with CC of altered level of consciousness. Patient was noted to have hypotension. She was diagnosed to have sepsis and admitted to telemetry. Apparently her daughter had a conversation with ER physician making her "no code " Allergies: Coded Allergies: No Known Allergies (Unverified , 04/19/12) Medication History Scheduled Alendronate Sodium* (Fosamax*), 70 MG ORAL ONCE A WEEK, (Reported) Aspirin* (Aspirin*), 325 MG ORAL DAILY, (Reported) Atorvastatin Calcium* (Atorvastatin Calcium*), 10 MG ORAL BEDTIME, (Reported) Bisacodyl* (Dulcolax*), 10 MG PO DAILY, (Reported) Carvedilol (Coreg), 12.5 MG PO Q12H, (Reported) Clopidogrel Bisulfate* (Plavix*), 75 MG PO DAILY, (Reported) Docusate Sodium* (Colace*), 100 MG PO BID, (Reported) Donepezil Hcl* (Aricept*), 10 MG ORAL DAILY, (Reported) Furosemide* (Lasix*), 20 MG PO QOD, (Reported) Gabapentin* (Gabapentin*), 600 MG PO BID, (Reported) Isosorbide Mononitrate* (Imdur*), 30 MG PO DAILY, (Reported) Lisinopril* (Zestril*), 5 MG PO DAILY, (Reported) Metoclopramide Hcl* (Reglan*), 5 MG ORAL EVERY 6 HOURS, (Reported) Mirtazapine* (Remeron*), 15 MG ORAL BEDTIME, (Reported) Multivitamin With Minerals (Multivitamins With Minerals*), 1 TAB ORAL DAILY, ( Reported) Nitroglycerin (Nitroglycerin), 0.4 MG SL PRN, (Reported) Omeprazole Magnesium (Prilosec Otc), 20 MG ORAL DAILY, (Reported) Polyethylene Glycol 3350* (Miralax*), 17 GM ORAL DAILY, (Reported) Vitamin B Cmplx/Vit C/Folic AC (Nephro-Reyes Tablet), 1 TAB ORAL DAILY, (Reported ) Zolpidem Tartrate* (Ambien*), 5 MG PO HS, (Reported) Scheduled PRN Acetaminophen* (Tylenol*), 500 MG PO Q8H PRN, (Reported) Tramadol Hcl* (Ultram*), 50 MG ORAL Q6H PRN for For Pain, (Reported) Miscellaneous Medications Insulin Aspart* (Novolog*), 0 SUBQ, (Reported) Discontinued Medications Aspirin Ec* (Aspirin Ec*), 81 MG ORAL DAILY Discontinued Reason: Medication dose changed Ertapenem Sodium* (INVanz*), 1 GM IVPB Q24H Discontinued Reason: MD discontinued med Guaifenesin/Dextromethorphan (Robitussin Dm To Go Liquid), 10 ML PO, (Reported) Discontinued Reason: MD discontinued med Magnesium Hydroxide (Milk of Magnesia), 30 ML PO DAILY PRN, (Reported) Discontinued Reason: MD discontinued med Memantine Hcl* (Namenda*), 10 MG PO BID, (Reported) Discontinued Reason: MD discontinued med Nph, Human Insulin Isophane* (Novolin N*), 0 SUBQ, (Reported) Discontinued Reason: MD discontinued med Potassium Bicarbonate/Cit Ac (Potassium 25 Meq Tablet Eff), 10 MEQ PO BID, ( Reported) Discontinued Reason: Medication dose changed Potassium Chloride/D5w (Kcl 20 Meq In D5w Solution), 20 MEQ PO QOD, (Reported) Discontinued Reason: MD discontinued med Pravastatin Sod (Pravachol), 80 MG PO HS, (Reported) Discontinued Reason: Medication dose changed Vit B Cmplx 3/Fa/Vit C/Biotin (Zoe-Reyes Rx Tablet), 1 EACH PO, (Reported) Discontinued Reason: MD discontinued med Vitamin B Cmplx/Vit C/Folic AC (Nephro-Reyes Tablet), 1 TAB ORAL DAILY, (Reported ) Discontinued Reason: MD discontinued med Patient History Healthcare decision maker N Resuscitation status Do Not Resuscitate Advanced Directive on File No Past Medical/Surgical History Past Medical/Surgical History: (1) Dermatitis (2) Diabetes (3) CAD (coronary artery disease) (4) Hypertension (5) HTN (hypertension) (6) COPD (chronic obstructive pulmonary disease) Review of Systems All Other Systems: negative except mentioned in HPI Physical Exam General Appearance: WD/WN Lines, tubes and drains: peripheral HEENT: normocephalic, atraumatic Neck: non-tender, supple Respiratory/Chest: chest wall non-tender, lungs clear Breasts: no masses Cardiovascular/Chest: normal rate, no JVD Abdomen: normal bowel sounds Genitourinary/Rectal: normal genital exam, normal prostate exam Last 24 Hour Vital Signs Date Time Temp Pulse Resp B/P (MAP) Pulse Ox O2 Delivery O2 Flow Rate FiO2 04/29/17 09:15 65 16 Room Air 21 04/29/17 09:15 96 Room Air 21 04/29/17 09:15 Room Air 21 04/29/17 08:00 96.4 69 19 101/43 Room Air 04/29/17 04:00 97.2 60 23 112/60 97 Room Air 04/29/17 04:00 59 04/29/17 00:00 97.0 63 20 112/65 97 Room Air 04/29/17 00:00 64 04/28/17 21:30 97.4 58 15 112/56 98 Room Air 04/28/17 21:20 97.5 58 15 112/56 98 Room Air 04/28/17 19:20 60 10 93/35 96 Room Air 04/28/17 17:39 63 13 105/41 97 Room Air 04/28/17 16:30 60 12 99/44 98 Room Air 04/28/17 15:47 97.4 61 13 93/35 98 Room Air 04/28/17 15:00 60 16 90/50 97 Room Air Laboratory Tests Test 04/28/17 15:30 04/28/17 15:39 04/29/17 07:15 Urine Color Yellow Urine Appearance Clear Urine pH 5 (4.5-8.0) Urine Specific [place] 1.020 (1.005-1.035) Urine Protein 1+ (NEGATIVE) H Urine Glucose (UA) Negative (NEGATIVE) Urine Ketones 1+ (NEGATIVE) H Urine Occult Blood Negative (NEGATIVE) Urine Nitrite Negative (NEGATIVE) Urine Bilirubin Negative (NEGATIVE) Urine Urobilinogen 1 MG/DL (0.0-1.0) H Urine Leukocyte Esterase 1+ (NEGATIVE) H Urine RBC 2-4 /HPF (0 - 2) H Urine WBC 5-10 /HPF (0 - 2) H Urine Squamous Epithelial Cells Few /LPF (NONE/OCC) Urine Bacteria Few /HPF (NONE) Urine Fine Granular Casts 2-4 /LPF (NONE) H White Blood Count 7.8 K/UL (4.8-10.8) 7.6 K/UL (4.8-10.8) Red Blood Count 4.34 M/UL (4.20-5.40) 3.94 M/UL (4.20-5.40) L Hemoglobin 12.7 G/DL (12.0-16.0) 11.7 G/DL (12.0-16.0) L Hematocrit 41.4 % (37.0-47.0) 38.0 % (37.0-47.0) Mean Corpuscular Volume 95 FL (80-99) 96 FL (80-99) Mean Corpuscular Hemoglobin 29.2 PG (27.0-31.0) 29.6 PG (27.0-31.0) Mean Corpuscular Hemoglobin Concent 30.6 G/DL (32.0-36.0) L 30.7 G/DL (32.0-36.0) L Red Cell Distribution Width 12.2 % (11.6-14.8) 12.5 % (11.6-14.8) Platelet Count 181 K/UL (150-450) 160 K/UL (150-450) Mean Platelet Volume 6.5 FL (6.5-10.1) 6.5 FL (6.5-10.1) Neutrophils (%) (Auto) 78.0 % (45.0-75.0) H 63.5 % (45.0-75.0) Lymphocytes (%) (Auto) 13.9 % (20.0-45.0) L 19.5 % (20.0-45.0) L Monocytes (%) (Auto) 3.6 % (1.0-10.0) 8.5 % (1.0-10.0) Eosinophils (%) (Auto) 3.3 % (0.0-3.0) H 7.1 % (0.0-3.0) H Basophils (%) (Auto) 1.3 % (0.0-2.0) 1.4 % (0.0-2.0) Sodium Level 144 MMOL/L (136-145) 144 MMOL/L (136-145) Potassium Level 4.2 MMOL/L (3.5-5.1) 3.9 MMOL/L (3.5-5.1) Chloride Level 110 MMOL/L (98-107) H 111 MMOL/L (98-107) H Carbon Dioxide Level 22 MMOL/L (21-32) 28 MMOL/L (21-32) Anion Gap 12 mmol/L (5-15) 5 mmol/L (5-15) Blood Urea Nitrogen 34 mg/dL (7-18) H 28 mg/dL (7-18) H Creatinine 1.9 MG/DL (0.55-1.30) H 1.4 MG/DL (0.55-1.30) H Estimat Glomerular Filtration Rate mL/min (>60) mL/min (>60) Glucose Level 191 MG/DL (74-106) H 92 MG/DL (74-106) # Lactic Acid Level 1.50 mmol/L (0.66-2.22) Uric Acid 8.2 MG/DL (2.6-7.2) H Calcium Level 8.8 MG/DL (8.5-10.1) 8.5 MG/DL (8.5-10.1) Phosphorus Level 4.8 MG/DL (2.5-4.9) Magnesium Level 2.4 MG/DL (1.8-2.4) Total Bilirubin 0.3 MG/DL (0.2-1.0) 0.4 MG/DL (0.2-1.0) Aspartate Amino Transf (AST/SGOT) 26 U/L (15-37) 16 U/L (15-37) Alanine Aminotransferase (ALT/SGPT) 28 U/L (12-78) 23 U/L (12-78) Alkaline Phosphatase 74 U/L (46-116) 64 U/L (46-116) Total Creatine Kinase 19 U/L (26-308) L Creatine Kinase MB 0.9 NG/ML (0.0-3.6) Creatine Kinase MB Relative Index 4.7 Troponin I 0.003 ng/mL (0.000-0.056) Total Protein 6.8 G/DL (6.4-8.2) 6.2 G/DL (6.4-8.2) L Albumin 3.0 G/DL (3.4-5.0) L 2.8 G/DL (3.4-5.0) L Globulin 3.8 g/dL 3.4 g/dL Albumin/Globulin Ratio 0.8 (1.0-2.7) L 0.8 (1.0-2.7) L Height (Feet): 4 Height (Inches): 11.00 Weight (Pounds): 124 Medications Current Medications Medications (Trade) Dose Ordered Sig/Dat Route PRN Reason Start Time Stop Time Status Last Admin Dose Admin Acetaminophen (Tylenol) 650 mg Q4H PRN ORAL fever 04/28/17 19:30 05/28/17 19:29 Albuterol/ Ipratropium (Albuterol/ Ipratropium) 3 ml EVERY 4 HOURS PRN HHN Shortness of Breath 04/28/17 19:30 05/03/17 19:29 Dextrose (Dextrose 50%) STAT PRN IV Hypoglycemia 04/28/17 19:30 05/28/17 19:29 Ertapenem 0.5 gm/ Sodium Chloride 55 ml @ 110 mls/hr Q24H IVPB 04/29/17 12:00 05/04/17 11:59 04/29/17 13:26 Heparin Sodium (Porcine) (Heparin 5000 units/ml) 5,000 units EVERY 12 HOURS SUBQ 04/28/17 21:00 05/28/17 20:59 04/28/17 22:44 Insulin Aspart (NovoLOG) BEFORE MEALS AND HS SUBQ 04/28/17 21:00 05/28/17 20:59 Morphine Sulfate (Morphine Sulfate) 2 mg EVERY 4 HOURS PRN IVP Moderate Pain (Pain Scale 4-6) 04/28/17 19:30 05/05/17 19:29 Nitroglycerin (Ntg) 0.4 mg Q5MINS PRN SL Prn Chest Pain 04/28/17 19:30 05/28/17 19:29 Ondansetron HCl (Zofran) 4 mg Q6H PRN IVP Nausea & Vomiting 04/28/17 19:30 05/28/17 19:29 Polyethylene Glycol (Miralax) 17 gm DAILYPRN PRN ORAL Constipation 04/28/17 19:30 05/28/17 19:29 Temazepam (Restoril) 15 mg HSPRN PRN ORAL Insomnia 04/28/17 19:30 05/05/17 19:29 Assessment/Plan Problem List: (1) Sepsis ICD Codes: A41.9 - Sepsis, unspecified organism SNOMED: 83466205 (2) Hypotension ICD Codes: I95.9 - Hypotension SNOMED: 47723318 (3) COPD (chronic obstructive pulmonary disease) ICD Codes: J44.9 - COPD (chronic obstructive pulmonary disease) SNOMED: 28946649 (4) Anemia ICD Codes: D64.9 - Anemia SNOMED: 818536203 (5) Acute renal failure (6) Dementia ICD Codes: F03.90 - Dementia SNOMED: 70035994 (7) Diabetes ICD Codes: E11.9 - Diabetes SNOMED: 46275752 Assessment/Plan IV fluids IV antibiotics respiratory treatment check cultures dvt prophylaxis ILANA PIERCE Apr 29, 2017 13:41
--- NOTE | 2017-04-29 18:16 | Consultation ---
DATE OF CONSULTATION: 04/29/2017 INFECTIOUS DISEASES CONSULTATION CONSULTING PHYSICIAN: Dusty Engel M.D. REQUESTING PHYSICIANS: 1. Van Gomes M.D. 2. Michelle Dillard M.D. REASON FOR CONSULTATION: Evaluation of the patient for sepsis, possible urinary tract infection, and antibiotic management. HISTORY OF PRESENT ILLNESS: This is an 81-year-old female with multiple medical problems as listed below, who was admitted to this medical center for altered level of consciousness. The patient has a history of ESBL E. coli urinary tract infection in the past. Infectious Disease consultation has been requested for further evaluation of the patient and antibiotic management. PAST MEDICAL HISTORY: 1. Hypertension. 2. Diabetes. 3. Dementia. 4. CHF. 5. Osteoarthritis. 6. Depression. 7. CAD. 8. Anemia. 9. CKD. 10. COPD. MEDICATIONS: IV vancomycin and cefepime. ALLERGIES: No known drug allergies. SOCIAL HISTORY: Negative for alcohol or drug use. FAMILY HISTORY: Not available. REVIEW OF SYSTEMS: Unobtainable. The patient is lethargic. PHYSICAL EXAMINATION: VITAL SIGNS: Temperature 96.5, blood pressure 101/43, pulse 56, and respiratory rate 18. HEENT: No pale conjunctivae. No icterus. NECK: No lymphadenopathy. CHEST: Clear. HEART: S1 and S2. ABDOMEN: Soft and nontender. EXTREMITIES: No cyanosis at this time. NEUROLOGIC: Lethargic. SKIN: No decubitus. LABORATORY AND DIAGNOSTIC DATA: White blood cells 7.6, hemoglobin 11, and platelets 160. UA shows 2 to 4 red blood cells and 5 to 10 white blood cells. BUN 23 and creatinine 1.8. ALT, AST, and alkaline phosphatase are unremarkable. Urine culture from 04/15/2017 growing ESBL E. coli. Cultures are pending (blood, sputum and urine). Chest x-ray, no acute process. ASSESSMENT: The patient is an 81-year-old female with: 1. Mild pyuria. 2. Possible urinary tract infection. 3. Possible sepsis. 4. Afebrile. 5. Normal white blood cells. 6. History of recent Extended-spectrum beta-lactamase Escherichia coli urinary tract infection. PLAN: 1. We will currently change antibiotics to Invanz day #1. 2. Hold vancomycin and cefepime. 3. Monitor CBC. 4. Monitor BMP. 5. Monitor cultures (blood, sputum and urine). 6. Monitor chest x-ray. 7. Based on the patient's clinical course and labs, we will do further recommendation. Thank you, Dr. Dillard and Dr. Gomes, for allowing me to participate in the care of this patient. I will follow the patient with you during this hospitalization. Dusty Engel M.D. DR: ASHLEY JOB#: [id number] CC:
[2017-04-29] MEDS ORDERED: Nitroglycerin Subl 0.4mg tab SL PRN (19:15)
[2017-04-29] MEDS ORDERED: Albuterol/Ipratropium 3ml neb HHN PRN (19:30)
[2017-04-29] MEDS ORDERED: Morphine Sulfate 2mg/ml Inj IVP PRN (19:30)
[2017-04-29] MEDS ORDERED: Miralax 17gm pkt ORAL PRN (19:30)
--- NOTE | 2017-04-29 19:43 | Consultation ---
History of Present Illness General Date patient seen: Apr 28, 2017 Chief Complaint: Altered Level of Consciousness Reason for Consultation: dyspnea Present Illness HPI 81-year-old female with multiple medical problems as listed below, who was admitted to this medical center for altered level of consciousness. The patient has a history of ESBL E. coli urinary tract infection. the pt is well known to this physician from [place]. the pt is more confused Allergies: Coded Allergies: No Known Allergies (Unverified , 04/19/12) Medication History Scheduled Alendronate Sodium* (Fosamax*), 70 MG ORAL ONCE A WEEK, (Reported) Aspirin* (Aspirin*), 325 MG ORAL DAILY, (Reported) Atorvastatin Calcium* (Atorvastatin Calcium*), 10 MG ORAL BEDTIME, (Reported) Bisacodyl* (Dulcolax*), 10 MG PO DAILY, (Reported) Carvedilol (Coreg), 12.5 MG PO Q12H, (Reported) Clopidogrel Bisulfate* (Plavix*), 75 MG PO DAILY, (Reported) Docusate Sodium* (Colace*), 100 MG PO BID, (Reported) Donepezil Hcl* (Aricept*), 10 MG ORAL DAILY, (Reported) Furosemide* (Lasix*), 20 MG PO QOD, (Reported) Gabapentin* (Gabapentin*), 600 MG PO BID, (Reported) Isosorbide Mononitrate* (Imdur*), 30 MG PO DAILY, (Reported) Lisinopril* (Zestril*), 5 MG PO DAILY, (Reported) Metoclopramide Hcl* (Reglan*), 5 MG ORAL EVERY 6 HOURS, (Reported) Mirtazapine* (Remeron*), 15 MG ORAL BEDTIME, (Reported) Multivitamin With Minerals (Multivitamins With Minerals*), 1 TAB ORAL DAILY, ( Reported) Nitroglycerin (Nitroglycerin), 0.4 MG SL PRN, (Reported) Omeprazole Magnesium (Prilosec Otc), 20 MG ORAL DAILY, (Reported) Polyethylene Glycol 3350* (Miralax*), 17 GM ORAL DAILY, (Reported) Vitamin B Cmplx/Vit C/Folic AC (Nephro-Reyes Tablet), 1 TAB ORAL DAILY, (Reported ) Zolpidem Tartrate* (Ambien*), 5 MG PO HS, (Reported) Scheduled PRN Acetaminophen* (Tylenol*), 500 MG PO Q8H PRN, (Reported) Tramadol Hcl* (Ultram*), 50 MG ORAL Q6H PRN for For Pain, (Reported) Miscellaneous Medications Insulin Aspart* (Novolog*), 0 SUBQ, (Reported) Discontinued Medications Aspirin Ec* (Aspirin Ec*), 81 MG ORAL DAILY Discontinued Reason: Medication dose changed Ertapenem Sodium* (INVanz*), 1 GM IVPB Q24H Discontinued Reason: MD discontinued med Guaifenesin/Dextromethorphan (Robitussin Dm To Go Liquid), 10 ML PO, (Reported) Discontinued Reason: MD discontinued med Magnesium Hydroxide (Milk of Magnesia), 30 ML PO DAILY PRN, (Reported) Discontinued Reason: MD discontinued med Memantine Hcl* (Namenda*), 10 MG PO BID, (Reported) Discontinued Reason: MD discontinued med Nph, Human Insulin Isophane* (Novolin N*), 0 SUBQ, (Reported) Discontinued Reason: MD discontinued med Potassium Bicarbonate/Cit Ac (Potassium 25 Meq Tablet Eff), 10 MEQ PO BID, ( Reported) Discontinued Reason: Medication dose changed Potassium Chloride/D5w (Kcl 20 Meq In D5w Solution), 20 MEQ PO QOD, (Reported) Discontinued Reason: MD discontinued med Pravastatin Sod (Pravachol), 80 MG PO HS, (Reported) Discontinued Reason: Medication dose changed Vit B Cmplx 3/Fa/Vit C/Biotin (Zoe-Reyes Rx Tablet), 1 EACH PO, (Reported) Discontinued Reason: MD discontinued med Vitamin B Cmplx/Vit C/Folic AC (Nephro-Reyes Tablet), 1 TAB ORAL DAILY, (Reported ) Discontinued Reason: MD discontinued med Patient History History Provided By: Patient, Medical Record, PMD Healthcare decision maker N Resuscitation status Do Not Resuscitate Advanced Directive on File No Review of Systems Psychiatric: Reports: prior hx, anxiety, depressed feelings Physical Exam General Appearance: WD/WN, no apparent distress, lethargic, confused Last 24 Hour Vital Signs Date Time Temp Pulse Resp B/P (MAP) Pulse Ox O2 Delivery O2 Flow Rate FiO2 04/29/17 12:00 58 04/29/17 12:00 97.4 80 19 124/80 Room Air 04/29/17 09:15 65 16 Room Air 21 04/29/17 09:15 96 Room Air 21 04/29/17 09:15 Room Air 21 04/29/17 08:00 96.4 69 19 101/43 Room Air 04/29/17 08:00 69 04/29/17 04:00 97.2 60 23 112/60 97 Room Air 04/29/17 04:00 59 04/29/17 00:00 97.0 63 20 112/65 97 Room Air 04/29/17 00:00 64 04/28/17 21:30 97.4 58 15 112/56 98 Room Air 04/28/17 21:20 97.5 58 15 112/56 98 Room Air Laboratory Tests Test 04/29/17 07:15 White Blood Count 7.6 K/UL (4.8-10.8) Red Blood Count 3.94 M/UL (4.20-5.40) L Hemoglobin 11.7 G/DL (12.0-16.0) L Hematocrit 38.0 % (37.0-47.0) Mean Corpuscular Volume 96 FL (80-99) Mean Corpuscular Hemoglobin 29.6 PG (27.0-31.0) Mean Corpuscular Hemoglobin Concent 30.7 G/DL (32.0-36.0) L Red Cell Distribution Width 12.5 % (11.6-14.8) Platelet Count 160 K/UL (150-450) Mean Platelet Volume 6.5 FL (6.5-10.1) Neutrophils (%) (Auto) 63.5 % (45.0-75.0) Lymphocytes (%) (Auto) 19.5 % (20.0-45.0) L Monocytes (%) (Auto) 8.5 % (1.0-10.0) Eosinophils (%) (Auto) 7.1 % (0.0-3.0) H Basophils (%) (Auto) 1.4 % (0.0-2.0) Sodium Level 144 MMOL/L (136-145) Potassium Level 3.9 MMOL/L (3.5-5.1) Chloride Level 111 MMOL/L (98-107) H Carbon Dioxide Level 28 MMOL/L (21-32) Anion Gap 5 mmol/L (5-15) Blood Urea Nitrogen 28 mg/dL (7-18) H Creatinine 1.4 MG/DL (0.55-1.30) H Estimat Glomerular Filtration Rate mL/min (>60) Glucose Level 92 MG/DL (74-106) # Calcium Level 8.5 MG/DL (8.5-10.1) Total Bilirubin 0.4 MG/DL (0.2-1.0) Aspartate Amino Transf (AST/SGOT) 16 U/L (15-37) Alanine Aminotransferase (ALT/SGPT) 23 U/L (12-78) Alkaline Phosphatase 64 U/L (46-116) Total Protein 6.2 G/DL (6.4-8.2) L Albumin 2.8 G/DL (3.4-5.0) L Globulin 3.4 g/dL Albumin/Globulin Ratio 0.8 (1.0-2.7) L Height (Feet): 4 Height (Inches): 11.00 Weight (Pounds): 124 Medications Current Medications Medications (Trade) Dose Ordered Sig/Dat Route PRN Reason Start Time Stop Time Status Last Admin Dose Admin Acetaminophen (Tylenol) 650 mg Q4H PRN ORAL fever 04/29/17 19:30 05/28/17 19:29 Albuterol/ Ipratropium (Albuterol/ Ipratropium) 3 ml Q4H PRN HHN Shortness of Breath 04/29/17 19:30 05/04/17 19:29 Dextrose (Dextrose 50%) STAT PRN IV Hypoglycemia 04/29/17 19:30 05/28/17 19:29 Ertapenem 0.5 gm/ Sodium Chloride 55 ml @ 110 mls/hr Q24H IVPB 04/30/17 12:00 05/04/17 11:59 Heparin Sodium (Porcine) (Heparin 5000 units/ml) 5,000 units EVERY 12 HOURS SUBQ 04/29/17 21:00 05/28/17 20:59 Insulin Aspart (NovoLOG) BEFORE MEALS AND HS SUBQ 04/29/17 21:00 05/28/17 20:59 Morphine Sulfate (Morphine Sulfate) 2 mg Q4H PRN IVP Moderate Pain (Pain Scale 4-6) 04/29/17 19:30 05/06/17 19:29 Nitroglycerin (Ntg) 0.4 mg Q5MIN PRN SL Prn Chest Pain 04/29/17 19:15 05/29/17 19:14 Ondansetron HCl (Zofran) 4 mg Q6H PRN IVP Nausea & Vomiting 04/29/17 19:30 05/28/17 19:29 Polyethylene Glycol (Miralax) 17 gm DAILYPRN PRN ORAL Constipation 04/29/17 19:30 05/28/17 19:29 Temazepam (Restoril) 15 mg HSPRN PRN ORAL Insomnia 04/29/17 19:30 05/05/17 19:29 Assessment/Plan Status: not improved, unchanged Assessment/Plan MDD by hx encephalopathy risperdal 1mg qhs Preston Suazo M.D. Apr 29, 2017 19:43
[2017-04-29 20:00] VITALS: BP 119/68
--- NOTE | 2017-04-29 21:01 | History and Physical Report ---
DATE OF ADMISSION: 04/28/2017 CHIEF COMPLAINT: The patient is an 81-year-old female, who presents with chief complaint of altered mental status. HISTORY OF PRESENT ILLNESS: The patient was admitted from 04/05/2017 to 04/20/2017 at [facility]. The patient is admitted for urinary tract infection and vaginal bleeding. The patient was discharged to [facility]. According to staff at [facility], the patient became increasingly altered yesterday, 04/28/2017. The patient was transferred to [facility]. The patient was found to have urinary tract infection. The patient is admitted for altered mental status and urinary tract infection. PAST MEDICAL HISTORY: Significant for: 1. Type 2 diabetes. 2. Hypertension. 3. Coronary artery disease. 4. Congestive heart failure. 5. Alzheimer's dementia. 6. Osteoporosis. PAST SURGICAL HISTORY: The patient denies. CURRENT MEDICATIONS: 1. Aspirin 325 mg one tablet p.o. daily. 2. Fosamax 70 mg p.o. every Thursday. 3. Atorvastatin 10 mg p.o. at bedtime. 4. Carvedilol 12.5 mg p.o. twice daily. 5. Plavix 75 mg one tablet p.o. daily. 6. Aricept 10 mg p.o. daily. 7. Gabapentin 600 mg p.o. twice daily. 8. Imdur extended release 30 mg p.o. daily. 9. Lasix 20 mg p.o. every other day. 10. Lisinopril 5 mg p.o. daily. 11. Remeron 15 mg p.o. at bedtime. 12. Multivitamin p.o. daily. 13. Nephro-Reyes 0.8 mg p.o. daily. 14. Nitroglycerin sublingual p.r.n. 15. NovoLog sliding scale. 16. Omeprazole 20 mg p.o. daily. 17. Tramadol 50 mg p.o. q.6 h. p.r.n. 18. Ambien 5 mg p.o. at bedtime p.r.n. ALLERGIES: No known drug allergies. SOCIAL HISTORY: The patient is a . The patient denies tobacco or alcohol use. REVIEW OF SYSTEMS: Unable to assess secondary to the patient's mental status. PHYSICAL EXAMINATION: VITAL SIGNS: Temperature 97.5, respirations 15, pulse 58, and blood pressure 112/56. GENERAL: The patient is a well-developed, well-nourished female, in no apparent distress. HEENT: Eyes, pupils are equal and responsive to light and accommodation. Extraocular movements are intact. NECK: Supple without lymphadenopathy. CHEST: Lungs are clear to auscultation bilaterally without wheezes or rales. CARDIOVASCULAR: Regular rhythm and rate. S1 and S2 are normal without murmurs, rubs, or gallops. ABDOMEN: Soft, nontender, and nondistended. Positive bowel sounds. No evidence of hepatosplenomegaly. Currently, no rebound or guarding noted. EXTREMITIES: Negative for clubbing, cyanosis, or edema. RECTAL: Refused. GENITAL: Refused. NEUROLOGIC: Cranial nerves II through XII are grossly intact without focal deficits. LABORATORY AND DIAGNOSTIC DATA: WBC 7.8, hemoglobin 12.7, hematocrit 41.4, and platelets 181,000. Sodium 144, potassium 4.2, chloride 110, CO2 22, BUN 34, creatinine 1.9, and glucose 191. Urinalysis showed 1+ protein, 1+ ketones, and 1+ leukocyte esterase with 5 to 10 WBCs. Chest x-ray was reported as no acute disease. ASSESSMENT: This is an 81-year-old female: 1. Altered mental status. 2. Urinary tract infection. 3. Type 2 diabetes. 4. Hypertension. 5. Coronary artery disease. 6. History of congestive heart failure. 7. Alzheimer's dementia. 8. Osteoporosis. TREATMENT: 1. Altered mental status, this may be secondary to urinary tract infection. 2. Urinary tract infection. An Infectious Disease consultation has been obtained with Dr. Engel. The patient has been started empirically on ceftriaxone and vancomycin. We will follow recommendations of Infectious Disease. Urine culture is pending. 3. Type 2 diabetes. Continue NovoLog sliding scale. 4. Hypertension. Continue lisinopril as above. 5. History of coronary artery disease. Continue aspirin and Plavix as above. 6. History of congestive heart failure. Continue Coreg as above. 7. Alzheimer's dementia. Continue Aricept as above. 8. Osteoporosis. Continue Fosamax as above. Eliud Jorgensen M.D. DR: HAYDEE JOB#: [id number] CC:
[2017-04-29] MEDS ORDERED: Vancomycin 500mg/D5W 110ml IVPB SCH ×2 (22:00)
[2017-04-29 23:50] LABS: APPEARANCE,URINE SLIGHTLY CLOUDY; KETONES,URINE NEGATIVE (NEGATIVE); NITRITE,URINE NEGATIVE (NEGATIVE); PH,URINE 5 (4.5-8.0); PROTEIN,URINE 1+ (NEGATIVE); UROBILINOGEN,URINE NORMAL MG/DL (0.0-1.0)
[2017-04-30] VITALS: BP 137/64
[2017-04-30 00:08] LABS: LEUKOCYTE ESTERASE ,URINE 2+ (NEGATIVE)
[2017-04-30 01:43] LABS: BACTERIA,URINE FEW /HPF; RBC,URINE 0-2 /HPF (0 - 2); SQUAMOUS EPITHELIAL CELL,UR FEW /LPF (NONE/OCC)
[2017-04-30 04:00] VITALS: BP 144/67
[2017-04-30 06:00] LABS: BASOPHILS % (AUTO) 2.4 % (0.0-2.0); LYMPHOCYTES % (AUTO) 29.3 % (20.0-45.0); MEAN CORPUSCULAR HEMOGLOBIN 31.7 PG (27.0-31.0); MEAN CORPUSCULAR HGB CONC 33.3 G/DL (32.0-36.0); MEAN CORPUSCULAR VOLUME 95 FL (80-99); MEAN PLATELET VOLUME 7.5 FL (6.5-10.1); MONOCYTES % (AUTO) 7.9 % (1.0-10.0); NEUTROPHILS % (AUTO) 50.4 % (45.0-75.0); PLATELET COUNT 167 K/UL (150-450); RED BLOOD COUNT 4.28 M/UL (4.20-5.40); RED CELL DISTRIBUTION WIDTH 12.2 % (11.6-14.8)
[2017-04-30] MEDS: NovoLOG Insulin Flexpen SUBQ SCH ×4 (06:01→20:26)
[2017-04-30 08:51] VITALS: BP 138/59
[2017-04-30 09:52] LABS: ANION GAP 7 mmol/L (5-15); CALCIUM 8.9 MG/DL (8.5-10.1); CARBON DIOXIDE 26 MMOL/L (21-32); CHLORIDE 109 MMOL/L (98-107); CREATININE 1.2 MG/DL (0.55-1.30); POTASSIUM 4.2 MMOL/L (3.5-5.1); SODIUM 142 MMOL/L (136-145)
[2017-04-30] MEDS: Heparin 5000 units/ml inj SUBQ SCH ×2 (09:56→20:25)
--- NOTE | 2017-04-30 10:42 | Infectious Diseases Prog Note ---
Assessment/Plan Assessment/Plan 1. Hypertension. 2. Diabetes. 3. Dementia. 4. CHF. 5. Osteoarthritis. 6. Depression. 7. CAD. 8. Anemia. 9. CKD. 10. COPD. MEDICATIONS: IV vancomycin and cefepime. ALLERGIES: No known drug allergies. SOCIAL HISTORY: Negative for alcohol or drug use. FAMILY HISTORY: Not available. REVIEW OF SYSTEMS: Unobtainable. The patient is lethargic. PHYSICAL EXAMINATION: VITAL SIGNS: Temperature 96.5, blood pressure 101/43, pulse 56, and respiratory rate 18. HEENT: No pale conjunctivae. No icterus. NECK: No lymphadenopathy. CHEST: Clear. HEART: S1 and S2. ABDOMEN: Soft and nontender. EXTREMITIES: No cyanosis at this time. NEUROLOGIC: Lethargic. SKIN: No decubitus. LABORATORY AND DIAGNOSTIC DATA: White blood cells 7.6, hemoglobin 11, and platelets 160. UA shows 2 to 4 red blood cells and 5 to 10 white blood cells. BUN 23 and creatinine 1.8. ALT, AST, and alkaline phosphatase are unremarkable. Urine culture from 04/15/2017 growing ESBL E. coli. Cultures are pending (blood, sputum and urine). Chest x-ray, no acute process. ASSESSMENT: The patient is an 81-year-old female with: A: Mild pyuria. Possible urinary tract infection History of recent Extended-spectrum beta-lactamase Escherichia coli urinary tract infection. Possible sepsis. Afebrile. Normal white blood cells. PLAN: Cont Invanz day # 2 04/29 SP vancomycin and cefepime x 1 d Monitor CBC. Monitor BMP. Monitor cultures (blood, sputum and urine). Monitor chest x-ray. Subjective Constitutional: Denies: no symptoms, fever, chills, fatigue, anorexia, drenching sweats, other Allergies: Coded Allergies: No Known Allergies (Unverified , 04/19/12) Objective Vital Signs Last 24 Hour Vital Signs Date Time Temp Pulse Resp B/P (MAP) Pulse Ox O2 Delivery O2 Flow Rate FiO2 04/30/17 08:51 Room Air 04/30/17 08:51 98.2 66 20 138/59 98 04/30/17 08:46 Room Air 21 04/30/17 08:46 98 Room Air 21 04/30/17 08:45 72 16 Room Air 21 04/30/17 04:00 97.5 61 20 144/67 98 Room Air 04/30/17 00:00 97.8 64 19 137/64 97 Room Air 04/29/17 20:06 Room Air 04/29/17 20:06 97 Room Air 21 04/29/17 20:06 69 18 Room Air 21 04/29/17 20:00 97.2 56 19 119/68 98 Room Air 04/29/17 12:00 58 04/29/17 12:00 97.4 80 19 124/80 Room Air Height (Feet): 4 Height (Inches): 11.00 Weight (Pounds): 124 HEENT: anicteric Respiratory/Chest: no respiratory distress Cardiovascular: regular rhythm Abdomen: non distended Microbiology Date/Time Source Procedure Growth Status 04/28/17 15:55 Blood Blood Culture - Preliminary NO GROWTH AFTER 24 HOURS Resulted 04/28/17 15:39 Blood Blood Culture - Preliminary NO GROWTH AFTER 24 HOURS Resulted 04/28/17 15:30 Nasal Nares MRSA Culture - Final NO METHICILLIN RESISTANT STAPH AUREUS... Complete 04/29/17 12:21 Indwelling Cath Urine Culture - Preliminary NO GROWTH Resulted 04/28/17 15:30 Rectal Mucosa VRE Culture - Final NO VANCOMYCIN RESISTANT ENTEROCOCCUS ... Complete Laboratory Tests Test 04/29/17 12:27 04/30/17 04:55 04/30/17 09:05 Urine Color Yellow Urine Appearance Slightly cloudy Urine pH 5 (4.5-8.0) Urine Specific [place] 1.020 (1.005-1.035) Urine Protein 1+ (NEGATIVE) H Urine Glucose (UA) Negative (NEGATIVE) Urine Ketones Negative (NEGATIVE) Urine Occult Blood 1+ (NEGATIVE) H Urine Nitrite Negative (NEGATIVE) Urine Bilirubin Negative (NEGATIVE) Urine Urobilinogen Normal MG/DL (0.0-1.0) Urine Leukocyte Esterase 2+ (NEGATIVE) H Urine RBC 0-2 /HPF (0 - 2) Urine WBC 5-10 /HPF (0 - 2) H Urine Squamous Epithelial Cells Few /LPF (NONE/OCC) Urine Bacteria Few /HPF (NONE) Urine Eosinophils None seen Urine Random Sodium 94 MEQ/L (20-110) Urine Potassium Timed 39 mmol/L (12-62) White Blood Count 6.0 K/UL (4.8-10.8) Red Blood Count 4.28 M/UL (4.20-5.40) Hemoglobin 13.6 G/DL (12.0-16.0) Hematocrit 40.7 % (37.0-47.0) Mean Corpuscular Volume 95 FL (80-99) Mean Corpuscular Hemoglobin 31.7 PG (27.0-31.0) H Mean Corpuscular Hemoglobin Concent 33.3 G/DL (32.0-36.0) Red Cell Distribution Width 12.2 % (11.6-14.8) Platelet Count 167 K/UL (150-450) Mean Platelet Volume 7.5 FL (6.5-10.1) Neutrophils (%) (Auto) 50.4 % (45.0-75.0) Lymphocytes (%) (Auto) 29.3 % (20.0-45.0) Monocytes (%) (Auto) 7.9 % (1.0-10.0) Eosinophils (%) (Auto) 10.0 % (0.0-3.0) H Basophils (%) (Auto) 2.4 % (0.0-2.0) H Sodium Level 142 MMOL/L (136-145) Potassium Level 4.2 MMOL/L (3.5-5.1) Chloride Level 109 MMOL/L (98-107) H Carbon Dioxide Level 26 MMOL/L (21-32) Anion Gap 7 mmol/L (5-15) Blood Urea Nitrogen 20 mg/dL (7-18) H Creatinine 1.2 MG/DL (0.55-1.30) Estimat Glomerular Filtration Rate mL/min (>60) Glucose Level 94 MG/DL (74-106) Calcium Level 8.9 MG/DL (8.5-10.1) Current Medications Medications (Trade) Dose Ordered Sig/Dat Route PRN Reason Start Time Stop Time Status Last Admin Dose Admin Acetaminophen (Tylenol) 650 mg Q4H PRN ORAL fever 04/29/17 19:30 05/28/17 19:29 Albuterol/ Ipratropium (Albuterol/ Ipratropium) 3 ml Q4H PRN HHN Shortness of Breath 04/29/17 19:30 05/04/17 19:29 Dextrose (Dextrose 50%) STAT PRN IV Hypoglycemia 04/29/17 19:30 05/28/17 19:29 Ertapenem 0.5 gm/ Sodium Chloride 55 ml @ 110 mls/hr Q24H IVPB 04/30/17 12:00 05/04/17 11:59 Heparin Sodium (Porcine) (Heparin 5000 units/ml) 5,000 units EVERY 12 HOURS SUBQ 04/29/17 21:00 05/28/17 20:59 04/30/17 09:56 Insulin Aspart (NovoLOG) BEFORE MEALS AND HS SUBQ 04/29/17 21:00 05/28/17 20:59 Morphine Sulfate (Morphine Sulfate) 2 mg Q4H PRN IVP Moderate Pain (Pain Scale 4-6) 04/29/17 19:30 05/06/17 19:29 Nitroglycerin (Ntg) 0.4 mg Q5MIN PRN SL Prn Chest Pain 04/29/17 19:15 05/29/17 19:14 Ondansetron HCl (Zofran) 4 mg Q6H PRN IVP Nausea & Vomiting 04/29/17 19:30 05/28/17 19:29 Polyethylene Glycol (Miralax) 17 gm DAILYPRN PRN ORAL Constipation 04/29/17 19:30 05/28/17 19:29 Risperidone (RisperDAL) 1 mg BEDTIME PRN ORAL Agitation 04/29/17 19:45 05/29/17 19:44 Temazepam (Restoril) 15 mg HSPRN PRN ORAL Insomnia 04/29/17 19:30 05/05/17 19:29 SHAE RODRIGUEZ M.D. Apr 30, 2017 10:42
--- NOTE | 2017-04-30 11:00 | Cardiology Report ---
APPROVED REPORT EKG Measurement Heart [id number] Sinus bradycardia with sinus arrhythmia Inferior infarct, age undetermined Abnormal ECG
[2017-04-30] MEDS: Ertapenem 0.5 GM in NS 55 ML IVPB SCH (11:44)
[2017-04-30 12:10] VITALS: BP 148/66
[2017-04-30 16:16] VITALS: BP 142/59
--- NOTE | 2017-04-30 17:07 | Pulmonology Progress Note ---
Assessment/Plan Problems: (1) Sepsis (2) Hypotension (3) COPD (chronic obstructive pulmonary disease) (4) Anemia (5) Acute renal failure (6) Dementia (7) Diabetes Assessment/Plan improving electrolytes better check cultures continue abx dvt prophyhlaxis Subjective ROS Limited/Unobtainable: No Constitutional: Reports: no symptoms HEENT: Repors: no symptoms Respiratory: Reports: no symptoms Allergies: Coded Allergies: No Known Allergies (Unverified , 04/19/12) Objective Last 24 Hour Vital Signs Date Time Temp Pulse Resp B/P (MAP) Pulse Ox O2 Delivery O2 Flow Rate FiO2 04/30/17 16:16 98.0 59 20 142/59 98 04/30/17 12:10 Room Air 04/30/17 12:10 97.9 60 20 148/66 98 Room Air 04/30/17 08:51 Room Air 04/30/17 08:51 98.2 66 20 138/59 98 04/30/17 08:46 Room Air 21 04/30/17 08:46 98 Room Air 21 04/30/17 08:45 72 16 Room Air 21 04/30/17 04:00 97.5 61 20 144/67 98 Room Air 04/30/17 00:00 97.8 64 19 137/64 97 Room Air 04/29/17 20:06 Room Air 04/29/17 20:06 97 Room Air 21 04/29/17 20:06 69 18 Room Air 21 04/29/17 20:00 97.2 56 19 119/68 98 Room Air Intake and Output 04/30/17 05/01/17 19:00 07:00 Intake Total 240 ml Balance 240 ml Intake Oral 240 ml # Voids 2 General Appearance: WD/WN HEENT: normocephalic, anicteric Respiratory/Chest: chest wall non-tender, lungs clear Breasts: no masses Cardiovascular: normal rate Abdomen: normal bowel sounds Genitourinary: normal external genitalia Extremities: no clubbing Neurologic/Psychiatric: internal recruiter II-XII grossly normal, no motor/sensory deficits Microbiology Date/Time Source Procedure Growth Status 04/28/17 15:55 Blood Blood Culture - Preliminary NO GROWTH AFTER 24 HOURS Resulted 04/28/17 15:39 Blood Blood Culture - Preliminary NO GROWTH AFTER 24 HOURS Resulted 04/28/17 15:30 Nasal Nares MRSA Culture - Final NO METHICILLIN RESISTANT STAPH AUREUS... Complete 04/29/17 12:21 Indwelling Cath Urine Culture - Preliminary NO GROWTH Resulted 04/28/17 15:30 Rectal Mucosa VRE Culture - Final NO VANCOMYCIN RESISTANT ENTEROCOCCUS ... Complete Laboratory Tests 04/30/17 04:55: White Blood Count 6.0, Red Blood Count 4.28, Hemoglobin 13.6, Hematocrit 40.7, Mean Corpuscular Volume 95, Mean Corpuscular Hemoglobin 31.7H, Mean Corpuscular Hemoglobin Concent 33.3, Red Cell Distribution Width 12.2, Platelet Count 167, Mean Platelet Volume 7.5, Neutrophils (%) (Auto) 50.4, Lymphocytes (%) (Auto) 29.3, Monocytes (%) (Auto) 7.9, Eosinophils (%) (Auto) 10.0H, Basophils (%) ( Auto) 2.4H 04/30/17 09:05: Sodium Level 142, Potassium Level 4.2, Chloride Level 109H, Carbon Dioxide Level 26, Anion Gap 7, Blood Urea Nitrogen 20H, Creatinine 1.2, Estimat Glomerular Filtration Rate , Glucose Level 94, Calcium Level 8.9 Current Medications Medications (Trade) Dose Ordered Sig/Dat Route PRN Reason Start Time Stop Time Status Last Admin Dose Admin Acetaminophen (Tylenol) 650 mg Q4H PRN ORAL fever 04/29/17 19:30 05/28/17 19:29 Albuterol/ Ipratropium (Albuterol/ Ipratropium) 3 ml Q4H PRN HHN Shortness of Breath 04/29/17 19:30 05/04/17 19:29 Dextrose (Dextrose 50%) STAT PRN IV Hypoglycemia 04/29/17 19:30 05/28/17 19:29 Ertapenem 0.5 gm/ Sodium Chloride 55 ml @ 110 mls/hr Q24H IVPB 04/30/17 12:00 05/04/17 11:59 04/30/17 11:44 Heparin Sodium (Porcine) (Heparin 5000 units/ml) 5,000 units EVERY 12 HOURS SUBQ 04/29/17 21:00 05/28/17 20:59 04/30/17 09:56 Insulin Aspart (NovoLOG) BEFORE MEALS AND HS SUBQ 04/29/17 21:00 05/28/17 20:59 Morphine Sulfate (Morphine Sulfate) 2 mg Q4H PRN IVP Moderate Pain (Pain Scale 4-6) 04/29/17 19:30 05/06/17 19:29 Nitroglycerin (Ntg) 0.4 mg Q5MIN PRN SL Prn Chest Pain 04/29/17 19:15 05/29/17 19:14 Ondansetron HCl (Zofran) 4 mg Q6H PRN IVP Nausea & Vomiting 04/29/17 19:30 05/28/17 19:29 Polyethylene Glycol (Miralax) 17 gm DAILYPRN PRN ORAL Constipation 04/29/17 19:30 05/28/17 19:29 Risperidone (RisperDAL) 1 mg BEDTIME PRN ORAL Agitation 04/29/17 19:45 05/29/17 19:44 Temazepam (Restoril) 15 mg HSPRN PRN ORAL Insomnia 04/29/17 19:30 05/05/17 19:29 ILANA PIERCE Apr 30, 2017 17:07
[2017-04-30] MEDS ORDERED: NS 500ML ONE (17:41)
[2017-04-30] MEDS ORDERED: Tubing IV Secondary IV ONE (17:41)
--- NOTE | 2017-04-30 18:50 | Internal Med Progress Note ---
Subjective Date of Service: Apr 30, 2017 Physician Name Kia León Attending Physician Van Gomes MD Current Medications Medications (Trade) Dose Ordered Sig/Dat Route PRN Reason Start Time Stop Time Status Last Admin Dose Admin Acetaminophen (Tylenol) 650 mg Q4H PRN ORAL fever 04/29/17 19:30 05/28/17 19:29 Albuterol/ Ipratropium (Albuterol/ Ipratropium) 3 ml Q4H PRN HHN Shortness of Breath 04/29/17 19:30 05/04/17 19:29 Dextrose (Dextrose 50%) STAT PRN IV Hypoglycemia 04/29/17 19:30 05/28/17 19:29 Ertapenem 0.5 gm/ Sodium Chloride 55 ml @ 110 mls/hr Q24H IVPB 04/30/17 12:00 05/04/17 11:59 04/30/17 11:44 Heparin Sodium (Porcine) (Heparin 5000 units/ml) 5,000 units EVERY 12 HOURS SUBQ 04/29/17 21:00 05/28/17 20:59 04/30/17 09:56 Insulin Aspart (NovoLOG) BEFORE MEALS AND HS SUBQ 04/29/17 21:00 05/28/17 20:59 Morphine Sulfate (Morphine Sulfate) 2 mg Q4H PRN IVP Moderate Pain (Pain Scale 4-6) 04/29/17 19:30 05/06/17 19:29 Nitroglycerin (Ntg) 0.4 mg Q5MIN PRN SL Prn Chest Pain 04/29/17 19:15 05/29/17 19:14 Ondansetron HCl (Zofran) 4 mg Q6H PRN IVP Nausea & Vomiting 04/29/17 19:30 05/28/17 19:29 Polyethylene Glycol (Miralax) 17 gm DAILYPRN PRN ORAL Constipation 04/29/17 19:30 05/28/17 19:29 Risperidone (RisperDAL) 1 mg BEDTIME PRN ORAL Agitation 04/29/17 19:45 05/29/17 19:44 Temazepam (Restoril) 15 mg HSPRN PRN ORAL Insomnia 04/29/17 19:30 05/05/17 19:29 Allergies: Coded Allergies: No Known Allergies (Unverified , 04/19/12) ROS Limited/Unobtainable: Yes Subjective 81 YO F admitted with altered mental status. Cover for Int Nayan-Dr Gomes. Objective Last Vital Signs Date Time Temp Pulse Resp B/P (MAP) Pulse Ox O2 Delivery O2 Flow Rate FiO2 04/30/17 16:16 98.0 59 20 142/59 98 04/30/17 12:10 Room Air 04/30/17 08:46 21 General Appearance: WD/WN, no apparent distress EENT: PERRL/EOMI, normal ENT inspection Neck: non-tender, normal alignment, supple Cardiovascular: normal peripheral pulses, normal rate, regular rhythm, no gallop/murmur, no JVD Respiratory/Chest: chest wall non-tender, lungs clear, normal breath sounds, no respiratory distress, no accessory muscle use Abdomen: normal bowel sounds, non tender, soft, no organomegaly, no mass Neurologic: director personal II-XII grossly normal Skin: normal pigmentation, warm/dry Laboratory Tests Test 04/30/17 04:55 04/30/17 09:05 White Blood Count 6.0 K/UL (4.8-10.8) Red Blood Count 4.28 M/UL (4.20-5.40) Hemoglobin 13.6 G/DL (12.0-16.0) Hematocrit 40.7 % (37.0-47.0) Mean Corpuscular Volume 95 FL (80-99) Mean Corpuscular Hemoglobin 31.7 PG (27.0-31.0) H Mean Corpuscular Hemoglobin Concent 33.3 G/DL (32.0-36.0) Red Cell Distribution Width 12.2 % (11.6-14.8) Platelet Count 167 K/UL (150-450) Mean Platelet Volume 7.5 FL (6.5-10.1) Neutrophils (%) (Auto) 50.4 % (45.0-75.0) Lymphocytes (%) (Auto) 29.3 % (20.0-45.0) Monocytes (%) (Auto) 7.9 % (1.0-10.0) Eosinophils (%) (Auto) 10.0 % (0.0-3.0) H Basophils (%) (Auto) 2.4 % (0.0-2.0) H Sodium Level 142 MMOL/L (136-145) Potassium Level 4.2 MMOL/L (3.5-5.1) Chloride Level 109 MMOL/L (98-107) H Carbon Dioxide Level 26 MMOL/L (21-32) Anion Gap 7 mmol/L (5-15) Blood Urea Nitrogen 20 mg/dL (7-18) H Creatinine 1.2 MG/DL (0.55-1.30) Estimat Glomerular Filtration Rate mL/min (>60) Glucose Level 94 MG/DL (74-106) Calcium Level 8.9 MG/DL (8.5-10.1) Microbiology Date/Time Source Procedure Growth Status 04/28/17 15:55 Blood Blood Culture - Preliminary NO GROWTH AFTER 24 HOURS Resulted 04/28/17 15:39 Blood Blood Culture - Preliminary NO GROWTH AFTER 24 HOURS Resulted 04/28/17 15:30 Nasal Nares MRSA Culture - Final NO METHICILLIN RESISTANT STAPH AUREUS... Complete 04/29/17 12:21 Indwelling Cath Urine Culture - Preliminary NO GROWTH Resulted 04/28/17 15:30 Rectal Mucosa VRE Culture - Final NO VANCOMYCIN RESISTANT ENTEROCOCCUS ... Complete Intake and Output 04/30/17 05/01/17 19:00 07:00 Intake Total 480 ml Balance 480 ml Intake Oral 480 ml # Voids 5 Assessment/Plan Problem List: (1) Altered mental status Assessment & Plan: ?toxic metabolic encephalopathy? (2) COPD (chronic obstructive pulmonary disease) (3) HTN (hypertension) (4) Diabetes Assessment & Plan: Continue novolog sliding scale (5) CAD (coronary artery disease) (6) CHF (congestive heart failure) (7) Alzheimer's dementia (8) UTI (urinary tract infection) Assessment & Plan: Continue vanco and ceftriaxone per ID Status: not improved KIA LEÓN Apr 30, 2017 18:50
[2017-04-30 20:00] VITALS: BP 148/61
[2017-05-01] VITALS: BP 105/74
[2017-05-01 04:00] VITALS: BP 139/74
[2017-05-01] MEDS: NovoLOG Insulin Flexpen SUBQ SCH ×2 (06:23→11:30)
--- NOTE | 2017-05-01 06:45 | Progress Note ---
DATE: 04/30/2017 SUBJECTIVE: The patient was found asleep. No behavior issues. Calm. No anxiety or agitation. Medical condition is improving. MENTAL STATUS EXAMINATION: The patient was asleep . Mood is neutral. Affect is constricted. Congruent with mood. Thought process is concrete. Thought content, no suicidal or homicidal ideation. ASSESSMENT: 1. Major depressive disorder by history. 2. Encephalopathy. PLAN: No medication changes. Preston Suazo M.D. DR: KENDELL JOB#: [id number] CC:
[2017-05-01 08:00] VITALS: BP 133/61
[2017-05-01 08:29] LABS: BASOPHILS % (AUTO) 1.8 % (0.0-2.0); EOSINOPHILS % (AUTO) 5.4 % (0.0-3.0); LYMPHOCYTES % (AUTO) 22.7 % (20.0-45.0); MEAN CORPUSCULAR HEMOGLOBIN 31.8 PG (27.0-31.0); MEAN CORPUSCULAR HGB CONC 33.3 G/DL (32.0-36.0); MEAN CORPUSCULAR VOLUME 96 FL (80-99); MEAN PLATELET VOLUME 7.7 FL (6.5-10.1); MONOCYTES % (AUTO) 9.5 % (1.0-10.0); NEUTROPHILS % (AUTO) 60.5 % (45.0-75.0); PLATELET COUNT 187 K/UL (150-450); RED BLOOD COUNT 4.44 M/UL (4.20-5.40); RED CELL DISTRIBUTION WIDTH 12.2 % (11.6-14.8); WHITE BLOOD COUNT 5.1 K/UL (4.8-10.8)
[2017-05-01 08:38] LABS: ANION GAP 7 mmol/L (5-15); CALCIUM 9.1 MG/DL (8.5-10.1); CARBON DIOXIDE 27 MMOL/L (21-32); CHLORIDE 111 MMOL/L (98-107); CREATININE 1.2 MG/DL (0.55-1.30); POTASSIUM 4.8 MMOL/L (3.5-5.1); SODIUM 145 MMOL/L (136-145)
--- NOTE | 2017-05-01 08:59 | Diagnostic Imaging Report ---
Indication: Elevated renal function tests Technique: Grayscale and duplex images of the kidneys, retroperitoneum, and bladder were obtained. Comparison: 07/13/2013 Findings: Right kidney measures 10.6 cm in length. Left kidney measures 11.1 cm in length. Both kidneys demonstrate slightly increased echogenicity and cortical thinning. No hydronephrosis. There are bilateral renal cysts. One or more echogenic foci within the left renal sinus could indicate nonobstructive calculi. These are not evident previously. Normal inferior vena cava. Bladder is normal. Gallstones are incidentally noted Impression: Increased bilateral renal echogenicity and cortical thinning, consistent with medical renal disease Negative for hydronephrosis Possible nonobstructive left renal calyceal calculi, versus artifact Incidental finding bilateral renal cysts.. Cholelithiasis
[2017-05-01] MEDS: Heparin 5000 units/ml inj SUBQ SCH (09:07)
[2017-05-01] MEDS: Ertapenem 0.5 GM in NS 55 ML IVPB SCH (11:58)
[2017-05-01 12:00] VITALS: BP 140/64
--- NOTE | 2017-05-01 12:49 | Pulmonology Progress Note ---
Assessment/Plan Assessment/Plan ASSESSMENT possible sepsis DM UTI with Strep with recent hx of E coli ESBL UTI dementia HTN COPD encephalopathy MDD acute kidney injury on CRI -resolved CAD PLAN OF CARE MS floor urine cx+ Strep species and blood cx negative abx oer ID f recently not completed treated UTI with E coli ESBL infection BS management with SS of insulin BP management with ORESTES and BB DVT prophylaxis Pain management Bowel regimen psych follows optimized psych medications continue ASA ( was off since previous admission for vaginal bleeding) O2 HHN prn stable for dc back to SNF case discussed and evaluated by supervising physician Subjective Allergies: Coded Allergies: No Known Allergies (Unverified , 04/19/12) Subjective afebrile, no leucocytosis no signs of respiratory distress Objective Last 24 Hour Vital Signs Date Time Temp Pulse Resp B/P (MAP) Pulse Ox O2 Delivery O2 Flow Rate FiO2 05/01/17 08:00 97.2 61 17 133/61 99 05/01/17 08:00 Room Air 05/01/17 07:30 Room Air 21 05/01/17 07:30 100 Room Air 21 05/01/17 07:30 61 18 Room Air 21 05/01/17 04:00 Room Air 05/01/17 04:00 98.1 77 20 139/74 95 05/01/17 00:00 98.7 64 20 105/74 97 05/01/17 00:00 Room Air 04/30/17 21:40 Room Air 21 04/30/17 21:40 97 Room Air 21 04/30/17 21:39 62 18 Room Air 21 04/30/17 20:00 Room Air 04/30/17 20:00 98.5 69 18 148/61 94 04/30/17 16:16 98.0 59 20 142/59 98 Respiratory/Chest: lungs clear, no respiratory distress, no accessory muscle use Cardiovascular: normal rate, regular rhythm, no JVD Extremities: no edema Neurologic/Psychiatric: abnormal gait, alert - confused, poorly responsive Musculoskeletal: atrophy - BLE Microbiology Date/Time Source Procedure Growth Status 04/28/17 15:55 Blood Blood Culture - Preliminary NO GROWTH AFTER 48 HOURS Resulted 04/28/17 15:39 Blood Blood Culture - Preliminary NO GROWTH AFTER 48 HOURS Resulted 04/28/17 15:30 Nasal Nares MRSA Culture - Final NO METHICILLIN RESISTANT STAPH AUREUS... Complete 04/29/17 12:21 Indwelling Cath Urine Culture - Preliminary Streptococcus Species Resulted 04/28/17 15:30 Rectal Mucosa VRE Culture - Final NO VANCOMYCIN RESISTANT ENTEROCOCCUS ... Complete Laboratory Tests 05/01/17 06:30: White Blood Count 5.1, Red Blood Count 4.44, Hemoglobin 14.1, Hematocrit 42.5, Mean Corpuscular Volume 96, Mean Corpuscular Hemoglobin 31.8H, Mean Corpuscular Hemoglobin Concent 33.3, Red Cell Distribution Width 12.2, Platelet Count 187, Mean Platelet Volume 7.7, Neutrophils (%) (Auto) 60.5, Lymphocytes (%) (Auto) 22.7, Monocytes (%) (Auto) 9.5, Eosinophils (%) (Auto) 5.4H, Basophils (%) (Auto ) 1.8, Sodium Level 145, Potassium Level 4.8, Chloride Level 111H, Carbon Dioxide Level 27, Anion Gap 7, Blood Urea Nitrogen 17, Creatinine 1.2, Estimat Glomerular Filtration Rate , Glucose Level 95, Calcium Level 9.1 Current Medications Medications (Trade) Dose Ordered Sig/Dat Route PRN Reason Start Time Stop Time Status Last Admin Dose Admin Acetaminophen (Tylenol) 650 mg Q4H PRN ORAL fever 04/29/17 19:30 05/28/17 19:29 Albuterol/ Ipratropium (Albuterol/ Ipratropium) 3 ml Q4H PRN HHN Shortness of Breath 04/29/17 19:30 05/04/17 19:29 Dextrose (Dextrose 50%) STAT PRN IV Hypoglycemia 04/29/17 19:30 05/28/17 19:29 Ertapenem 0.5 gm/ Sodium Chloride 55 ml @ 110 mls/hr Q24H IVPB 04/30/17 12:00 05/04/17 11:59 05/01/17 11:58 Heparin Sodium (Porcine) (Heparin 5000 units/ml) 5,000 units EVERY 12 HOURS SUBQ 04/29/17 21:00 05/28/17 20:59 05/01/17 09:07 Insulin Aspart (NovoLOG) BEFORE MEALS AND HS SUBQ 04/29/17 21:00 05/28/17 20:59 04/30/17 20:26 Morphine Sulfate (Morphine Sulfate) 2 mg Q4H PRN IVP Moderate Pain (Pain Scale 4-6) 04/29/17 19:30 05/06/17 19:29 Nitroglycerin (Ntg) 0.4 mg Q5MIN PRN SL Prn Chest Pain 04/29/17 19:15 05/29/17 19:14 Ondansetron HCl (Zofran) 4 mg Q6H PRN IVP Nausea & Vomiting 04/29/17 19:30 05/28/17 19:29 Polyethylene Glycol (Miralax) 17 gm DAILYPRN PRN ORAL Constipation 04/29/17 19:30 05/28/17 19:29 Risperidone (RisperDAL) 1 mg BEDTIME PRN ORAL Agitation 04/29/17 19:45 05/29/17 19:44 Temazepam (Restoril) 15 mg HSPRN PRN ORAL Insomnia 04/29/17 19:30 05/05/17 19:29 [facility]awayB[facility] Va Medical CenterLaura Steven NP May 01, 2017 12:49
--- NOTE | 2017-05-01 14:16 | Infectious Diseases Prog Note ---
Assessment/Plan Assessment/Plan ASSESSMENT: The patient is an 81-year-old female with: A: Mild pyuria. Possible urinary tract infection Ux : strep History of recent Extended-spectrum beta-lactamase Escherichia coli urinary tract infection. Possible sepsis. Afebrile. Normal white blood cells. Hypertension. Diabetes. Dementia. CHF. Osteoarthritis. Depression. CAD. Anemia. CKD. COPD. PLAN: Cont Invanz day # 3 04/29 SP vancomycin and cefepime x 1 d Monitor CBC. Monitor BMP. Monitor cultures (blood, sputum and urine). Monitor chest x-ray. Subjective Constitutional: Denies: no symptoms, fever, chills, fatigue, anorexia, drenching sweats, other Allergies: Coded Allergies: No Known Allergies (Unverified , 04/19/12) Objective Vital Signs Last 24 Hour Vital Signs Date Time Temp Pulse Resp B/P (MAP) Pulse Ox O2 Delivery O2 Flow Rate FiO2 05/01/17 12:00 97.8 65 19 140/64 97 05/01/17 08:00 97.2 61 17 133/61 99 05/01/17 08:00 Room Air 05/01/17 07:30 Room Air 21 05/01/17 07:30 100 Room Air 21 05/01/17 07:30 61 18 Room Air 21 05/01/17 04:00 Room Air 05/01/17 04:00 98.1 77 20 139/74 95 05/01/17 00:00 98.7 64 20 105/74 97 05/01/17 00:00 Room Air 04/30/17 21:40 Room Air 21 04/30/17 21:40 97 Room Air 21 04/30/17 21:39 62 18 Room Air 21 04/30/17 20:00 Room Air 04/30/17 20:00 98.5 69 18 148/61 94 04/30/17 16:16 98.0 59 20 142/59 98 Height (Feet): 4 Height (Inches): 11.00 Weight (Pounds): 124 HEENT: anicteric Respiratory/Chest: no accessory muscle use Cardiovascular: no gallop/murmur Abdomen: soft, non tender Microbiology Date/Time Source Procedure Growth Status 04/28/17 15:55 Blood Blood Culture - Preliminary NO GROWTH AFTER 48 HOURS Resulted 04/28/17 15:39 Blood Blood Culture - Preliminary NO GROWTH AFTER 48 HOURS Resulted 04/28/17 15:30 Nasal Nares MRSA Culture - Final NO METHICILLIN RESISTANT STAPH AUREUS... Complete 04/29/17 12:21 Indwelling Cath Urine Culture - Preliminary Streptococcus Species Resulted 04/28/17 15:30 Rectal Mucosa VRE Culture - Final NO VANCOMYCIN RESISTANT ENTEROCOCCUS ... Complete Laboratory Tests Test 05/01/17 06:30 White Blood Count 5.1 K/UL (4.8-10.8) Red Blood Count 4.44 M/UL (4.20-5.40) Hemoglobin 14.1 G/DL (12.0-16.0) Hematocrit 42.5 % (37.0-47.0) Mean Corpuscular Volume 96 FL (80-99) Mean Corpuscular Hemoglobin 31.8 PG (27.0-31.0) H Mean Corpuscular Hemoglobin Concent 33.3 G/DL (32.0-36.0) Red Cell Distribution Width 12.2 % (11.6-14.8) Platelet Count 187 K/UL (150-450) Mean Platelet Volume 7.7 FL (6.5-10.1) Neutrophils (%) (Auto) 60.5 % (45.0-75.0) Lymphocytes (%) (Auto) 22.7 % (20.0-45.0) Monocytes (%) (Auto) 9.5 % (1.0-10.0) Eosinophils (%) (Auto) 5.4 % (0.0-3.0) H Basophils (%) (Auto) 1.8 % (0.0-2.0) Sodium Level 145 MMOL/L (136-145) Potassium Level 4.8 MMOL/L (3.5-5.1) Chloride Level 111 MMOL/L (98-107) H Carbon Dioxide Level 27 MMOL/L (21-32) Anion Gap 7 mmol/L (5-15) Blood Urea Nitrogen 17 mg/dL (7-18) Creatinine 1.2 MG/DL (0.55-1.30) Estimat Glomerular Filtration Rate mL/min (>60) Glucose Level 95 MG/DL (74-106) Calcium Level 9.1 MG/DL (8.5-10.1) Current Medications Medications (Trade) Dose Ordered Sig/Dat Route PRN Reason Start Time Stop Time Status Last Admin Dose Admin Acetaminophen (Tylenol) 650 mg Q4H PRN ORAL fever 04/29/17 19:30 05/28/17 19:29 Albuterol/ Ipratropium (Albuterol/ Ipratropium) 3 ml Q4H PRN HHN Shortness of Breath 04/29/17 19:30 05/04/17 19:29 Dextrose (Dextrose 50%) STAT PRN IV Hypoglycemia 04/29/17 19:30 05/28/17 19:29 Ertapenem 0.5 gm/ Sodium Chloride 55 ml @ 110 mls/hr Q24H IVPB 04/30/17 12:00 05/04/17 11:59 05/01/17 11:58 Heparin Sodium (Porcine) (Heparin 5000 units/ml) 5,000 units EVERY 12 HOURS SUBQ 04/29/17 21:00 05/28/17 20:59 05/01/17 09:07 Insulin Aspart (NovoLOG) BEFORE MEALS AND HS SUBQ 04/29/17 21:00 05/28/17 20:59 04/30/17 20:26 Morphine Sulfate (Morphine Sulfate) 2 mg Q4H PRN IVP Moderate Pain (Pain Scale 4-6) 04/29/17 19:30 05/06/17 19:29 Nitroglycerin (Ntg) 0.4 mg Q5MIN PRN SL Prn Chest Pain 04/29/17 19:15 05/29/17 19:14 Ondansetron HCl (Zofran) 4 mg Q6H PRN IVP Nausea & Vomiting 04/29/17 19:30 05/28/17 19:29 Polyethylene Glycol (Miralax) 17 gm DAILYPRN PRN ORAL Constipation 04/29/17 19:30 05/28/17 19:29 Risperidone (RisperDAL) 1 mg BEDTIME PRN ORAL Agitation 04/29/17 19:45 05/29/17 19:44 Temazepam (Restoril) 15 mg HSPRN PRN ORAL Insomnia 04/29/17 19:30 05/05/17 19:29 SHAE RODRIGUEZ M.D. May 01, 2017 14:16
[2017-05-01] MEDS ORDERED: Tubing IV Secondary IV ONE (15:27)
--- NOTE | 2017-05-01 20:00 | Progress Note ---
DATE: 05/01/2017 SUBJECTIVE: The patient is awake, calm in bed, no behavioral issues. She is dysphoric. Unable to be engaged during the evaluation. Poor insight and judgment into her mental condition. MENTAL STATUS EXAMINATION: The patient is alert and oriented times self. Mood is dysphoric. Affect is constricted. Congruent with mood. Thought process is concrete. Thought content, no suicidal, or homicidal ideation. ASSESSMENT: Depression. PLAN: 1. We will continue the current medications. 2. Provide the patient with reality orientation. 3. We will continue to follow. Preston Suazo M.D. DR: KENDELL JOB#: [id number] CC:
[2017-05-01] MEDS ORDERED: LEVAQUIN250 M1 ORAL (22:05)
[2017-05-01] MEDS ORDERED: ASPIRIN81 MG ORAL (22:05)
--- NOTE | 2017-05-04 10:41 | Discharge Summary ---
Discharge Summary Hospital Course Date of Admission Apr 28, 2017 at 17:35 Date of Discharge May 01, 2017 at 15:28 Admitting Diagnosis SEPSIS ,UTI HPI Tony Herzog is a 81 year old female who was admitted on Apr 28, 2017 at 17:35 for Sepsis,Urinary Tract Infection Hospital Course dc summary #[id number] Discharge Medications New Medications: Aspirin* (Aspirin*) 81 Mg Tab.chew 81 MG ORAL DAILY, #30 TAB Levofloxacin* (Levaquin*) 250 Mg Tablet 250 MG ORAL DAILY, #7 TAB Continued Medications: Acetaminophen* (Tylenol*) 500 Mg Tab 500 MG PO Q8H PRN, #10 TAB Alendronate Sodium* (Fosamax*) 70 Mg Tablet 70 MG ORAL ONCE A WEEK, TAB Take with 6-8 oz water at least 30 minutes before first food; Sit upright for at least 30min after medication administration Atorvastatin Calcium* (Atorvastatin Calcium*) 20 Mg Tablet 10 MG ORAL BEDTIME, TAB Bisacodyl* (Dulcolax*) 5 Mg Tablet.dr 10 MG PO DAILY Carvedilol (Coreg) 12.5 Mg Tab 12.5 MG PO Q12H, #20 TAB Clopidogrel Bisulfate* (Plavix*) 75 Mg Tablet 75 MG PO DAILY, #10 TAB Take 1 tablet by mouth daily. Docusate Sodium* (Colace*) 100 Mg Capsule 100 MG PO BID, #10 CAP Donepezil Hcl* (Aricept*) 10 Mg Tablet 10 MG ORAL DAILY, TAB Furosemide* (Lasix*) 20 Mg Tablet 20 MG PO QOD, #10 TAB Take 1 tablet by mouth daily Gabapentin* (Gabapentin*) 600 Mg Tablet 600 MG PO BID, #21 CAP Insulin Aspart* (Novolog*) 100 Unit/1 Ml Insuln.pen 0 SUBQ, #1 EA 0 Refills Isosorbide Mononitrate* (Imdur*) 30 Mg Tab.er.24h 30 MG PO DAILY Lisinopril* (Zestril*) 5 Mg Tablet 5 MG PO DAILY, #10 TAB Take 1 tablet by mouth every day. Metoclopramide Hcl* (Reglan*) 5 Mg Tablet 5 MG ORAL EVERY 6 HOURS, TAB Mirtazapine* (Remeron*) 15 Mg Tablet 15 MG ORAL BEDTIME, TAB Multivitamin With Minerals (Multivitamins With Minerals*) 1 Each Tablet 1 TAB ORAL DAILY, TAB Nitroglycerin (Nitroglycerin) 0.4 Mg Tab.subl 0.4 MG SL PRN Omeprazole Magnesium (Prilosec Otc) 20 Mg Tablet.dr 20 MG ORAL DAILY, TAB Polyethylene Glycol 3350* (Miralax*) 17 Gm Powd.pack 17 GM ORAL DAILY, PACKET Tramadol Hcl* (Ultram*) 50 Mg Tablet 50 MG ORAL Q6H PRN for For Pain, TAB 0 Refills Vitamin B Cmplx/Vit C/Folic AC (Nephro-Reyes Tablet) 0.8 Mg Tablet 1 TAB ORAL DAILY, #30 TAB 0 Refills Zolpidem Tartrate* (Ambien*) 5 Mg Tablet 5 MG PO HS Discharge Condition Upon Discharge: stable Discharge Disposition Patient was discharged to SNF/Subacute Facility(03) [facility]: [facility]Laura NP May 04, 2017 10:41
--- NOTE | 2017-05-05 08:00 | Discharge Summary 2 SIG ---
DATE OF ADMISSION: 04/28/2017 DATE OF DISCHARGE: 05/01/2017 REASON FOR ADMISSION: 81-year-old female was [facility] from the prison facility with altered level of consciousness. The patient was hypotensive. The patient was recently diagnosed with E. coli ESBL UTI. Code status stated Full Code, but limited additional interventions. The patient was afebrile, no leukocytosis. Urinalysis revealed pyuria, nitrites were negative, elevated WBC, and few bacteria. Lactic acid- 1.5. BUN -34 and creatinine- 1.9. Upon admission, blood pressure was 90/50. The patient was admitted with possible sepsis, altered level of consciousness, urinary tract infection, renal insufficiency, Alzheimer dementia, osteoporosis, and coronary artery disease. HOSPITAL STAY: The patient was admitted. Infectious Diseases, Pulmonology and Psychiatric consults were requested. The patient was started on empiric antibiotics. Blood culture were negative. Urine culture grew Enterococcus avium. Antibiotics optimized as per Infectious Diseases recommendation to complete the course at the prison [facility]. Chest x-ray upon admission revealed no acute process. Renal ultrasound revealed increased bilateral renal echogenicity and cortical thinning consistent with medical renal disease, but negative for hydronephrosis. Blood sugar was managed with sliding scale of insulin. Blood pressure normalized after IV hydration. Hypotension was likely secondary to infectious process. Blood pressure was managed later with ORESTES inhibitor and beta-chris. Renal parameters were closely monitored. DVT prophylaxis provided. Pain management provided. Bowel regimen instituted. Psychiatrist had seen and evaluated the patient, diagnosed her with encephalopathy and major depressive disorder. Psychiatrist optimized psychiatric medication regimen. Supplemental oxygen provided as needed along with pulmonary toilet. Pulse oximetry prior to discharge was stable on room air. No leukocytosis. Renal parameters with some improvement from initial BUN -34, creatinine- 1.9 down to BUN 17 and creatinine 1.2. The patient was stable for discharge to prison facility for continuation of care. FINAL DIAGNOSES: 1. Possible sepsis, 2. Urinary tract infection with Enterococcus avium, 3. History of recent Escherichia coli Extended-Spectrum Beta-Lactamase urinary tract infection. 4. Diabetes mellitus. 5. Acute kidney injury on chronic renal insufficiency. 6. Encephalopathy. 7. Chronic obstructive pulmonary disease. 8. Coronary artery disease. 9. Initial hypotension - resolved 10.Major depressive disorder. 11.Dementia. DISCHARGE MEDICATIONS: See medication reconciliation list. DISCHARGE INSTRUCTIONS: The patient was discharged to prison facility. FOLLOWUP: Follow up with medical doctor at the facility. Van Gomes M.D. Laura Cranezacarias N.PRemigio DR: LYLE JOB#: [id number] CC: KALLIE
== END 2017-05-01 15:28 | DRG 871 ==
LOC: EDSEX 15:07 → EDBD 15:07 → EMR 15:26 → EDBEDREQ 17:20 → 2E 17:35 → EDBEDREQ 20:16 → 4E 04-29 17:20
DX: A41.9 Sepsis, unspecified organism (principal); G93.40 Encephalopathy, unspecified; N17.9 Acute kidney failure, unspecified; N39.0 Urinary tract infection, site not specified; F03.90 Unspecified dementia, unspecified severity, without behavioral disturbance, psychotic disturbance, mood disturbance, and anxiety; J44.9 Chronic obstructive pulmonary disease, unspecified; B95.2 Enterococcus as the cause of diseases classified elsewhere; F32.9 Major depressive disorder, single episode, unspecified; I25.10 Atherosclerotic heart disease of native coronary artery without angina pectoris; E11.22 Type 2 diabetes mellitus with diabetic chronic kidney disease; N18.9 Chronic kidney disease, unspecified; M19.90 Unspecified osteoarthritis, unspecified site; I12.9 Hypertensive chronic kidney disease with stage 1 through stage 4 chronic kidney disease, or unspecified chronic kidney disease; Z66 Do not resuscitate
CPT/HCPCS: 36415; 51701; 71010; 76775; 80048; 80053; 81001; 81003; 82550; 82553; 82962; 83605; 83735; 84100; 84133; 84300; 84484; 84550; 85025; 87040; 87081; 87086; 87181; 87324; 89050; 93005; 94664; 94760; 99285; J1815